=== PATIENT | male | born 1970 | race Caucasian/White ===

== ENCOUNTER 2020-02-04 14:54 | Outpatient (CLI) | payer MEDICARE, SELFPAY ==
[2020-02-04 16:03] LABS: Iron 90 ug/dL (49-181)
[2020-02-04 16:12] LABS: Percent Iron Saturation 21 % (20-50)
[2020-02-04 16:39] LABS: Ferritin 7.01 ng/mL (17.9-464)
== END 2020-02-04 14:55 | disposition home or self-care (01) ==
LOC: ANHLAB 15:02
PROVIDERS: PCP Internal Medicine; Visit Provider Internal Medicine
DX: E61.1 Iron deficiency (principal)
CPT/HCPCS: 36415; 82728; 83540; 83550

== ENCOUNTER 2020-06-01 10:59 | Outpatient (CLI) | payer MEDICARE, SELFPAY ==
[2020-06-01 11:53] LABS: Basophils Absolute Auto 0.1 K/mm3 (0.0-0.1); Basophils Percent Auto 0.8 % (0.2-1.2); Eosinophils Absolute Auto 0.1 K/mm3 (0-0.3); Hematocrit 46.5 % (42.0-52.0); Hemoglobin 15.2 g/dL (14.0-18.0); Immature Granulocyte Absolute 0.03 K/mm3 (0.00-0.031); Immature Granulocyte Percent A 0.5 % (0-0.5); Lymphocytes Absolute Auto 1.09 K/mm3 (0.9-3.2); Lymphocytes Percent Auto 16.4 % (18.3-44.2); Mean Corpuscular HGB Conc 32.7 g/dl (32-36); Mean Corpuscular Hemoglobin 28.3 pg (26-34); Mean Corpuscular Volume 86.4 fl (80-100); Mean Platelet Volume 11.7 fl (7.4-10.4); Monocytes Absolute Auto 0.5 K/mm3 (0.1-0.6); Neutrophils Absolute Auto 4.8 K/mm3 (1.3-6.7); Neutrophils Percent Auto 72.3 % (45.5-73.1); Platelet Count Result 149 k/mm3 (150-375); Red Blood Count 5.38 M/mm3 (4.6-6.20); Red Cell Distribution Width 14.7 % (11.5-14.5); White Blood Count 6.6 K/mm3 (4.5-10.0)
[2020-06-01 12:05] LABS: Anion Gap 8 mmol/L (8-16); Blood Urea Nitrogen 14 mg/dL (9-20); Calcium 9.8 mg/dL (8.4-10.2); Carbon Dioxide 28 mmol/L (22-30); Chloride 102 mmol/L (98-107); Cholesterol 127 mg/dL (0-200); Estimated Glomerular Filt Rate > 60; Glucose 94 mg/dL (75-110); HDL Direct 33 mg/dL; Potassium 4.4 mmol/L (3.4-5.0); Sodium 138 mmol/L (137-145); Triglycerides 86 mg/dL (<150)
[2020-06-01 12:16] LABS: LDL Cholesterol Direct 72 mg/dL
[2020-06-01 12:41] LABS: Hemoglobin A1C 5.4 % (<5.7)
[2020-06-01 13:18] LABS: Iron 165 ug/dL (49-181)
[2020-06-01 13:28] LABS: Percent Iron Saturation 45 % (20-50)
== END 2020-06-01 11:00 | disposition home or self-care (01) ==
PROVIDERS: PCP Internal Medicine; Visit Provider Internal Medicine
DX: Z79.899 Other long term (current) drug therapy (principal); E11.42 Type 2 diabetes mellitus with diabetic polyneuropathy; E78.2 Mixed hyperlipidemia; E61.1 Iron deficiency
CPT/HCPCS: 36415; 80048; 80061; 82728; 83036; 83540; 83550; 85025

== ENCOUNTER 2020-10-19 11:16 | Outpatient (CLI) | payer MEDICARE, SELFPAY ==
[2020-10-19 11:44] LABS: Basophils Percent Auto 0.7 % (0.2-1.2); Eosinophils Absolute Auto 0.3 K/mm3 (0-0.3); Eosinophils Percent Auto 4.3 % (0-4.4); Hematocrit 45.4 % (42.0-52.0); Hemoglobin 14.4 g/dL (14.0-18.0); Immature Granulocyte Absolute 0.01 K/mm3 (0.00-0.031); Immature Granulocyte Percent A 0.2 % (0-0.5); Lymphocytes Absolute Auto 1.19 K/mm3 (0.9-3.2); Lymphocytes Percent Auto 20.3 % (18.3-44.2); Mean Corpuscular HGB Conc 31.7 g/dl (32-36); Mean Corpuscular Hemoglobin 28.6 pg (26-34); Mean Corpuscular Volume 90.3 fl (80-100); Mean Platelet Volume 10.9 fl (7.4-10.4); Monocytes Absolute Auto 0.4 K/mm3 (0.1-0.6); Monocytes Percent Auto 7.4 % (2.6-8.5); Neutrophils Absolute Auto 3.9 K/mm3 (1.3-6.7); Neutrophils Percent Auto 67.1 % (45.5-73.1); Platelet Count Result 147 k/mm3 (150-375); Red Blood Count 5.03 M/mm3 (4.6-6.20); Red Cell Distribution Width 14.4 % (11.5-14.5); White Blood Count 5.9 K/mm3 (4.5-10.0)
[2020-10-19 11:51] LABS: Hemoglobin A1C 5.4 % (<5.7)
[2020-10-19 12:45] LABS: Free T4 Free Thyroxine 0.95 ng/mL (0.78-2.19)
[2020-10-19 13:26] LABS: Anion Gap 5 mmol/L (8-16); Blood Urea Nitrogen 20 mg/dL (9-20); CRP < 0.5 mg/dL (<1.0); Carbon Dioxide 34 mmol/L (22-30); Chloride 103 mmol/L (98-107); Cholesterol 113 mg/dL (0-200); Estimated Glomerular Filt Rate > 60; Glucose 90 mg/dL (75-110); HDL Direct 35 mg/dL; Potassium 4.6 mmol/L (3.4-5.0); Sodium 142 mmol/L (137-145); Triglycerides 73 mg/dL (<150)
[2020-10-19 13:35] LABS: LDL Cholesterol Direct 55 mg/dL
[2020-10-19 14:39] LABS: Folic Acid > 20.0 ng/mL (2.76->20); Vitamin B12 > 1000.0 pg/mL (239-931)
== END 2020-10-19 11:17 | disposition home or self-care (01) ==
LOC: ANHLAB 11:18
PROVIDERS: PCP Internal Medicine; Visit Provider Internal Medicine
DX: Z79.899 Other long term (current) drug therapy (principal); E53.8 Deficiency of other specified B group vitamins; E78.2 Mixed hyperlipidemia; E11.42 Type 2 diabetes mellitus with diabetic polyneuropathy
CPT/HCPCS: 36415; 80048; 80061; 82607; 82746; 83036; 84439; 84443; 85025; 86140

== ENCOUNTER 2020-11-18 12:43 | Outpatient (CLI) | payer MEDICARE, SELFPAY ==
--- NOTE | ~2020-11-18 | DEXA_ITS ---
Bone Density Report Name: Jamie Garcia Age: 50 Sex: Male Ethnicity: White Date of : 1970 Indication: height loss; Referring Provider: TABBY LEE Study: Bone densitometry was performed. Exam Date: November 18, 2020 Accession number: [id number] Bone Density: Region BMD T-score Z-score Classification AP Spine (L1, L2, L3) 1.374 2.8 3.1 Normal Femoral Neck (Left) 0.903 -0.2 0.6 Normal Total Hip (Left) 1.009 -0.2 0.2 Normal Total Hip Bilateral Avg 1.027 -0.1 0.3 Normal Femoral Neck (Right) 0.986 0.4 1.2 Normal Total Hip (Right) 1.044 0.1 0.4 Normal World Health Organization criteria for BMD impression classify patients as: Normal (T-score at or above -1.0), Osteopenia (T-score between -1.0 and -2.5), or Osteoporosis (T-score at or below -2.5). 10-year Fracture Risk: FRAX not reported because: All T-scores for Spine Total, Hip Total, Femoral Neck at or above -1.0 Clinical Information Provided by Patient: Has used the following medications: Vitamin D, Calcium Patient maximum height was 74 No regular weight bearing exercise Drinks caffeinated beverages Impression: The patient has normal bone mass. Discussion: BONE DENSITY IS ABOVE THE MINIMUM DESIRABLE LEVEL AT ALL SKELETAL SITES TESTED. This patient?s bone mineral density is above the minimum desirable level (T-score -1.0 or better) at all sites measured. The patient should follow a healthful lifestyle (good nutrition with adequate calcium and vitamin D, and appropriate weight-bearing exercise). Follow-Up: Consider repeating this study in 5 years or sooner if there is some new clinical indication. Reported by: [facility] on 11/18/2020 1:02:00 PM. Reviewed, dictated and finalized at location A. [facility]
== END 2020-11-18 12:44 | disposition home or self-care (01) ==
LOC: ANHIMG 12:44
PROVIDERS: PCP Internal Medicine; Visit Provider Internal Medicine
DX: Z98.84 Bariatric surgery status (principal); R29.890 Loss of height
CPT/HCPCS: 77080

== ENCOUNTER 2021-03-01 08:38 | Outpatient (CLI) | payer MEDICARE, SELFPAY ==
[2021-03-01 09:24] LABS: Anion Gap 10 mmol/L (8-16); Blood Urea Nitrogen 12 mg/dL (9-20); Calcium 10.1 mg/dL (8.4-10.2); Carbon Dioxide 30 mmol/L (22-30); Chloride 101 mmol/L (98-107); Cholesterol 118 mg/dL (0-200); Estimated Glomerular Filt Rate > 60; Glucose 118 mg/dL (75-110); HDL Direct 41 mg/dL; Potassium 3.9 mmol/L (3.4-5.0); Sodium 141 mmol/L (137-145); Triglycerides 62 mg/dL (<150)
[2021-03-01 09:35] LABS: LDL Cholesterol Direct 54 mg/dL
[2021-03-01 09:37] LABS: Hemoglobin A1C 5.3 % (<5.7)
[2021-03-01 09:57] LABS: Prostate Specific Antigen 0.4 ng/mL (< OR = 4.0)
[2021-03-05 11:19] LABS: Vitamin D 1,25 (OH)2 Total 37 pg/mL (18-72); Vitamin D2 1,25 (OH)2 <8 pg/mL; Vitamin D3 1,25 (OH)2 37 pg/mL
== END 2021-03-01 08:39 | disposition home or self-care (01) ==
PROVIDERS: PCP Internal Medicine; Visit Provider Internal Medicine
DX: E11.42 Type 2 diabetes mellitus with diabetic polyneuropathy (principal); E55.9 Vitamin D deficiency, unspecified; E78.2 Mixed hyperlipidemia; Z12.5 Encounter for screening for malignant neoplasm of prostate; Z79.899 Other long term (current) drug therapy
CPT/HCPCS: 36415; 80048; 80061; 82652; 83036; 84153; G0103

== ENCOUNTER 2021-07-03 14:26 | Outpatient (CLI) | payer MEDICARE, SELFPAY ==
[2021-07-03 15:15] LABS: Basophils Absolute Auto 0.1 K/mm3 (0.0-0.1); Basophils Percent Auto 0.8 % (0.2-1.2); Eosinophils Absolute Auto 0.1 K/mm3 (0-0.3); Eosinophils Percent Auto 1.3 % (0-4.4); Hematocrit 43.8 % (42.0-52.0); Hemoglobin 13.9 g/dL (14.0-18.0); Immature Granulocyte Absolute 0.02 K/mm3 (0.00-0.031); Immature Granulocyte Percent A 0.3 % (0-0.5); Lymphocytes Absolute Auto 1.29 K/mm3 (0.9-3.2); Lymphocytes Percent Auto 20.4 % (18.3-44.2); Mean Corpuscular HGB Conc 31.7 g/dl (32-36); Mean Corpuscular Hemoglobin 28.7 pg (26-34); Mean Corpuscular Volume 90.3 fl (80-100); Mean Platelet Volume 10.5 fl (7.4-10.4); Monocytes Absolute Auto 0.5 K/mm3 (0.1-0.6); Monocytes Percent Auto 7.8 % (2.6-8.5); Neutrophils Absolute Auto 4.4 K/mm3 (1.3-6.7); Neutrophils Percent Auto 69.4 % (45.5-73.1); Platelet Count Result 143 k/mm3 (150-375); Red Blood Count 4.85 M/mm3 (4.6-6.20); Red Cell Distribution Width 14.1 % (11.5-14.5); White Blood Count 6.3 K/mm3 (4.5-10.0)
[2021-07-03 15:27] LABS: Alanine Aminotransferase 40 U/L (4-50); Albumin Level 4.6 g/dL (3.5-5.1); Alkaline Phosphatase 38 U/L (38-126); Anion Gap 7 mmol/L (8-16); Aspartate Amino Transferase 39 U/L (17-59); Bilirubin,Total 0.6 mg/dL (0.2-1.3); Blood Urea Nitrogen 15 mg/dL (9-20); Carbon Dioxide 31 mmol/L (22-30); Chloride 104 mmol/L (98-107); Cholesterol 117 mg/dL (0-200); Estimated Glomerular Filt Rate > 60; Glucose 121 mg/dL (65-110); HDL Direct 38 mg/dL; Potassium 4.1 mmol/L (3.4-5.0); Sodium 142 mmol/L (137-145); Triglycerides 113 mg/dL (<150)
[2021-07-03 15:38] LABS: LDL Cholesterol Direct 62 mg/dL
[2021-07-03 16:08] LABS: Iron 104 ug/dL (49-181)
[2021-07-03 16:17] LABS: Percent Iron Saturation 34 % (20-50)
[2021-07-03 16:43] LABS: Folic Acid > 20.0 ng/mL (2.76->20); Vitamin B12 > 1000.0 pg/mL (239-931)
[2021-07-03 17:27] LABS: Hemoglobin A1C 5.5 % (<5.7)
[2021-07-06 16:11] LABS: Vitamin B6 34.2 ng/mL (2.1-21.7)
[2021-07-07 14:18] LABS: Vitamin D 1,25 (OH)2 Total 48 pg/mL (18-72); Vitamin D2 1,25 (OH)2 <8 pg/mL; Vitamin D3 1,25 (OH)2 48 pg/mL
[2021-07-08 10:04] LABS: Vitamin B1 16 nmol/L (8-30)
[2021-07-10 13:43] LABS: Vitamin B2 26.4 nmol/L (6.2-39.0)
== END 2021-07-03 14:27 | disposition home or self-care (01) ==
PROVIDERS: PCP Internal Medicine; Visit Provider Internal Medicine
DX: E61.1 Iron deficiency (principal); Z79.899 Other long term (current) drug therapy; E53.8 Deficiency of other specified B group vitamins; E11.42 Type 2 diabetes mellitus with diabetic polyneuropathy; E78.2 Mixed hyperlipidemia; E55.9 Vitamin D deficiency, unspecified
CPT/HCPCS: 36415; 80053; 80061; 82607; 82652; 82728; 82746; 83036; 83540; 83550; 84207; 84252; 84425; 85025

== ENCOUNTER 2021-08-24 11:41 | Outpatient (CLI) | payer MEDICARE, SELFPAY ==
--- NOTE | ~2021-08-24 | XR_ITS ---
EXAMINATION: XR lumbar spine min 4V DATE: 08/24/2021 12:07 INDICATION: Low back pain. TECHNIQUE: 5 views of lumbar spine were obtained. COMPARISON: None. FINDINGS: Bone alignment is normal. Vertebral body heights are normal. There are changes of anterior fusion procedures at L4-L5 and L5-S1 with interbody devices and healed interbody bone graft. There is mildly decreased disc height at L3-L4. There is moderate facet joint osteoarthritis in lower lumbar spine. IMPRESSION: 1. Mild lumbar spondylosis. 2. Anterior fusion procedure from L4 to S1. Reviewed, dictated and finalized at location A. [employer]
== END 2021-08-24 11:42 | disposition home or self-care (01) ==
PROVIDERS: PCP Internal Medicine; Visit Provider Internal Medicine
DX: M47.896 Other spondylosis, lumbar region (principal); Z98.1 Arthrodesis status
CPT/HCPCS: 72110

== ENCOUNTER 2021-08-31 11:34 | Outpatient (CLI) | payer MEDICARE, SELFPAY ==
[2021-08-31 12:14] LABS: Creatinine Urine 74.7 mg/dL; Total Protein Urine Random 13 mg/dL; Ur Ttl Prot Creatinine Ratio 0.17 mg/mg (0-0.20)
[2021-08-31 12:18] LABS: Albumin Level 4.9 g/dL (3.5-5.1); Anion Gap 7 mmol/L (8-16); Blood Urea Nitrogen 17 mg/dL (9-20); Calcium 10.5 mg/dL (8.4-10.2); Carbon Dioxide 33 mmol/L (22-30); Chloride 98 mmol/L (98-107); Estimated Glomerular Filt Rate > 60; Glucose 97 mg/dL (65-110); Phosphorus 4.2 mg/dL (2.5-4.5); Potassium 4.1 mmol/L (3.4-5.0); Sodium 138 mmol/L (137-145)
== END 2021-08-31 11:35 | disposition home or self-care (01) ==
LOC: ANHLAB 11:36
PROVIDERS: PCP Internal Medicine; Visit Provider Internal Medicine Nephrology
DX: E11.9 Type 2 diabetes mellitus without complications (principal)
CPT/HCPCS: 36415; 80069; 82570; 84156

== ENCOUNTER → 2021-09-12 09:28 | Outpatient (CLI) | payer MEDICARE, SELFPAY ==
--- NOTE | ~2021-09-12 | CT_ITS ---
EXAMINATION: CT lumbar spine wo con DATE: 09/12/2021 09:45 INDICATION: Lumbar radiculopathy. TECHNIQUE: Computed tomography (CT) of the lumbar spine was performed without intravenous contrast. A utomated exposure control and iterative reconstruction technique were employed. The dose-length produ ct was 505.61 mGy-cm. COMPARISON: Lumbar spine radiographs 08/24/2021 FINDINGS: Bone alignment is normal. Vertebral body heights are normal. There are changes of anterior fusion procedures at L4-L5 and L5-S1 with interbody devices and healed interbody bone graft. There is mildly decreased disc height at L3-L4. The following disc levels are specifically discussed: L1-L2: The disc is bulging. There is severe right and mild left facet joint osteoarthritis. There is no neural foraminal stenosis. There is mild central canal stenosis. L2-L3: The disc is bulging. There is severe bilateral facet joint osteoarthritis. There is mild bilat eral neural foraminal stenosis. There is mild central canal stenosis. L3-L4: The disc is bulging. There is severe bilateral facet joint osteoarthritis. There is moderate b ilateral neural foraminal stenosis. There is moderate central canal stenosis. L4-L5: There is severe bilateral facet joint osteoarthritis. There is mild bilateral neural foraminal stenosis. There is mild central canal stenosis. L5-S1: There is severe bilateral facet joint osteoarthritis. There is mild bilateral neural foraminal stenosis. There is mild central canal stenosis. IMPRESSION: 1. Moderate lumbar spondylosis. 2. Anterior fusion procedures at L4-L5 and L5-S1. Reviewed, dictated and finalized at location A. KER/STOCKER
== END ==
PROVIDERS: PCP Internal Medicine; Visit Provider Nurse Practitioner Adult Health
DX: M47.26 Other spondylosis with radiculopathy, lumbar region (principal); Z98.1 Arthrodesis status
CPT/HCPCS: 72131

== ENCOUNTER 2021-10-02 09:20 | Outpatient (CLI) | payer MEDICARE, SELFPAY ==
[2021-10-02 09:41] LABS: Eosinophils Absolute Auto 0.1 K/mm3 (0-0.3); Eosinophils Percent Auto 2.2 % (0-4.4); Hematocrit 47.8 % (42.0-52.0); Hemoglobin 15.2 g/dL (14.0-18.0); Immature Granulocyte Absolute 0.01 K/mm3 (0.00-0.031); Immature Granulocyte Percent A 0.2 % (0-0.5); Lymphocytes Absolute Auto 1.05 K/mm3 (0.9-3.2); Lymphocytes Percent Auto 25.9 % (18.3-44.2); Mean Corpuscular HGB Conc 31.8 g/dl (32-36); Mean Corpuscular Hemoglobin 28.8 pg (26-34); Mean Corpuscular Volume 90.5 fl (80-100); Monocytes Absolute Auto 0.4 K/mm3 (0.1-0.6); Monocytes Percent Auto 9.6 % (2.6-8.5); Neutrophils Absolute Auto 2.5 K/mm3 (1.3-6.7); Neutrophils Percent Auto 61.1 % (45.5-73.1); Platelet Count Result 152 k/mm3 (150-375); Red Blood Count 5.28 M/mm3 (4.6-6.20); White Blood Count 4.1 K/mm3 (4.5-10.0)
[2021-10-02 09:52] LABS: Anion Gap 11 mmol/L (8-16); Blood Urea Nitrogen 19 mg/dL (9-20); Calcium 10.5 mg/dL (8.4-10.2); Carbon Dioxide 31 mmol/L (22-30); Chloride 97 mmol/L (98-107); Estimated Glomerular Filt Rate > 60; Glucose 105 mg/dL (65-110); Potassium 4.5 mmol/L (3.4-5.0); Sodium 139 mmol/L (137-145)
== END 2021-10-02 09:21 | disposition home or self-care (01) ==
PROVIDERS: PCP Internal Medicine
DX: Z01.818 Encounter for other preprocedural examination (principal)
CPT/HCPCS: 36415; 80048; 85025

== ENCOUNTER 2021-11-27 12:01 | Outpatient (CLI) | payer MEDICARE, SELFPAY ==
[2021-11-27 12:33] LABS: Cholesterol 134 mg/dL (0-200); HDL Direct 40 mg/dL; Triglycerides 77 mg/dL (<150)
[2021-11-27 12:44] LABS: LDL Cholesterol Direct 70 mg/dL
[2021-11-27 13:45] LABS: Vitamin D 25 Hydroxy 51.4 ng/mL
== END 2021-11-27 12:02 | disposition home or self-care (01) ==
LOC: ANHLAB 12:02
PROVIDERS: PCP Internal Medicine; Visit Provider Internal Medicine
DX: E55.9 Vitamin D deficiency, unspecified (principal); E78.2 Mixed hyperlipidemia
CPT/HCPCS: 36415; 80061; 82306

== ENCOUNTER 2021-11-28 09:15 | Outpatient (CLI) | payer MEDICARE, SELFPAY ==
[2021-11-28 10:01] LABS: Basophils Percent Auto 0.8 % (0.2-1.2); Eosinophils Absolute Auto 0.1 K/mm3 (0-0.3); Eosinophils Percent Auto 3.1 % (0-4.4); Hematocrit 45.2 % (42.0-52.0); Hemoglobin 14.2 g/dL (14.0-18.0); Immature Granulocyte Absolute 0.01 K/mm3 (0.00-0.031); Immature Granulocyte Percent A 0.3 % (0-0.5); Immature Platelet Fraction Pct 6.8 % (0.9-11.2); Lymphocytes Absolute Auto 1.05 K/mm3 (0.9-3.2); Lymphocytes Percent Auto 26.7 % (18.3-44.2); Mean Corpuscular HGB Conc 31.4 g/dl (32-36); Mean Corpuscular Hemoglobin 28.2 pg (26-34); Mean Corpuscular Volume 89.7 fl (80-100); Mean Platelet Volume 11.1 fl (7.4-10.4); Monocytes Absolute Auto 0.5 K/mm3 (0.1-0.6); Monocytes Percent Auto 12.2 % (2.6-8.5); Neutrophils Absolute Auto 2.2 K/mm3 (1.3-6.7); Neutrophils Percent Auto 56.9 % (45.5-73.1); Platelet Count Result 137 k/mm3 (150-375); Red Blood Count 5.04 M/mm3 (4.6-6.20); Red Cell Distribution Width 13.9 % (11.5-14.5); White Blood Count 3.9 K/mm3 (4.5-10.0)
[2021-11-28 10:15] LABS: Alanine Aminotransferase 56 U/L (4-50); Albumin Level 4.5 g/dL (3.5-5.1); Alkaline Phosphatase 46 U/L (38-126); Anion Gap 7 mmol/L (8-16); Aspartate Amino Transferase 45 U/L (17-59); Bilirubin,Total 0.4 mg/dL (0.2-1.3); Blood Urea Nitrogen 14 mg/dL (9-20); Calcium 9.4 mg/dL (8.4-10.2); Carbon Dioxide 32 mmol/L (22-30); Chloride 103 mmol/L (98-107); Estimated Glomerular Filt Rate > 60; Glucose 96 mg/dL (65-110); Potassium 4.5 mmol/L (3.4-5.0); Sodium 142 mmol/L (137-145)
[2021-11-28 10:16] LABS: Hemoglobin A1C 5.3 % (<5.7)
[2021-11-28 10:57] LABS: Free T4 Free Thyroxine 1.15 ng/mL (0.78-2.19)
== END 2021-11-28 09:16 | disposition home or self-care (01) ==
PROVIDERS: PCP Internal Medicine; Visit Provider Internal Medicine
DX: E11.42 Type 2 diabetes mellitus with diabetic polyneuropathy (principal); Z79.899 Other long term (current) drug therapy
CPT/HCPCS: 36415; 80053; 83036; 84439; 84443; 85025; 85055

== ENCOUNTER 2022-01-22 09:15 | Outpatient (CLI) | payer MEDICARE, SELFPAY ==
[2022-01-22 10:17] LABS: Albumin Level 4.6 g/dL (3.5-5.1); Anion Gap 6 mmol/L (8-16); Blood Urea Nitrogen 11 mg/dL (9-20); Carbon Dioxide 32 mmol/L (22-30); Chloride 102 mmol/L (98-107); Estimated Glomerular Filt Rate > 60; Glucose 103 mg/dL (65-110); Phosphorus 3.4 mg/dL (2.5-4.5); Potassium 4.1 mmol/L (3.4-5.0); Sodium 140 mmol/L (137-145)
[2022-01-22 12:08] LABS: Creatinine Urine 12.4 mg/dL; Total Protein Urine Random 14 mg/dL; Ur Ttl Prot Creatinine Ratio 1.13 mg/mg (0-0.20)
== END 2022-01-22 09:16 | disposition home or self-care (01) ==
PROVIDERS: PCP Internal Medicine; Visit Provider Internal Medicine Nephrology
DX: E11.9 Type 2 diabetes mellitus without complications (principal)
CPT/HCPCS: 36415; 80069; 82570; 84156

== ENCOUNTER 2022-01-30 09:40 | Outpatient (CLI) | payer MEDICARE, SELFPAY ==
[2022-01-30 10:26] LABS: Appearance Urine Clear (Clear); Bilirubin Urine Negative (Negative); Color Urine Yellow (Yellow); Glucose Urine UA 2+ mg/dL (Negative); Ketones Urine Negative (Negative); Leukocyte Esterase Ur Negative LEU/UL (Negative); Nitrate Urine Negative (Negative); Protein Urine Negative (Negative); Specific Grav Ur <= 1.005 (1.001-1.035); Urobilinogen Urine 0.2 mg/dL (<2.0); pH Urine 6.5 (5.0-9.0)
[2022-01-30 10:30] LABS: Add Urine Microscopic? YES; Bacteria Urine Trace /hpf; Blood Urine Trace-Intact (Negative); Mucus Urine Rare /lpf; RBC Urine 0-2 /hpf (0-2)
[2022-01-30 10:42] LABS: Albumin Level 4.1 g/dL (3.5-5.1); Anion Gap 8 mmol/L (8-16); Blood Urea Nitrogen 14 mg/dL (9-20); Calcium 9.4 mg/dL (8.4-10.2); Carbon Dioxide 31 mmol/L (22-30); Chloride 101 mmol/L (98-107); Estimated Glomerular Filt Rate > 60; Glucose 92 mg/dL (65-110); Phosphorus 2.6 mg/dL (2.5-4.5); Sodium 140 mmol/L (137-145)
[2022-01-30 10:44] LABS: Complement C3 91 mg/dL (88-165)
[2022-01-30 12:14] LABS: Erythrocyte Sedimentation Rate 3 mm/hr (0-20)
[2022-02-02 03:30] LABS: Lambda Light Chain 19.3 mg/L (5.7-26.3)
[2022-02-03 21:12] LABS: Complement Total CH50 >60 U/mL (31-60)
== END 2022-01-30 09:41 | disposition home or self-care (01) ==
LOC: ANHLAB 09:51
PROVIDERS: PCP Internal Medicine; Visit Provider Internal Medicine Nephrology
DX: R80.1 Persistent proteinuria, unspecified (principal)
CPT/HCPCS: 36415; 80069; 81001; 83883; 85652; 86038; 86160; 86162; 86334

== ENCOUNTER 2022-02-02 07:47 | Outpatient (CLI) | payer MEDICARE, SELFPAY ==
[2022-02-07 13:58] LABS: Albumin 28 %; Measured Kappa Chains 1.03 mg/dL (<2.00); Measured Lambda Chains <1.00 mg/dL (<2.00); Pro/Creat Ratio 113 mg/g creat (<=114)
[2022-02-08 14:10] LABS: Protein,total, 24 Hr Ur 253 mg/24h
== END 2022-02-02 07:48 | disposition home or self-care (01) ==
LOC: ANHLAB 07:50
PROVIDERS: PCP Internal Medicine; Visit Provider Internal Medicine Nephrology
DX: R80.1 Persistent proteinuria, unspecified (principal)
CPT/HCPCS: 86335

== ENCOUNTER 2022-04-23 07:19 | Outpatient (CLI) | payer MEDICARE, SELFPAY ==
[2022-04-23 07:54] LABS: Eosinophils Absolute Auto 0.1 K/mm3 (0-0.3); Eosinophils Percent Auto 3.7 % (0-4.4); Hematocrit 45.2 % (42.0-52.0); Hemoglobin 14.1 g/dL (14.0-18.0); Immature Granulocyte Absolute 0.01 K/mm3 (0.00-0.031); Immature Granulocyte Percent A 0.3 % (0-0.5); Lymphocytes Absolute Auto 1.16 K/mm3 (0.9-3.2); Lymphocytes Percent Auto 30.4 % (18.3-44.2); Mean Corpuscular HGB Conc 31.2 g/dl (32-36); Mean Corpuscular Hemoglobin 28.2 pg (26-34); Mean Corpuscular Volume 90.4 fl (80-100); Mean Platelet Volume 11.5 fl (7.4-10.4); Monocytes Absolute Auto 0.5 K/mm3 (0.1-0.6); Monocytes Percent Auto 12.6 % (2.6-8.5); Platelet Count Result 144 k/mm3 (150-375); Red Cell Distribution Width 14.1 % (11.5-14.5); White Blood Count 3.8 K/mm3 (4.5-10.0)
[2022-04-23 10:23] LABS: Hemoglobin A1C 5.5 % (<5.7)
[2022-04-23 10:35] LABS: Alanine Aminotransferase 27 U/L (6-50); Albumin Level 4.4 g/dL (3.5-5.1); Alkaline Phosphatase 49 U/L (38-126); Anion Gap 8 mmol/L (8-16); Aspartate Amino Transferase 35 U/L (17-59); Bilirubin,Total 0.6 mg/dL (0.2-1.3); Blood Urea Nitrogen 14 mg/dL (9-20); Carbon Dioxide 33 mmol/L (22-30); Chloride 99 mmol/L (98-107); Cholesterol 132 mg/dL (0-200); Estimated Glomerular Filt Rate > 60; Glucose 96 mg/dL (65-110); HDL Direct 40 mg/dL; Potassium 4.2 mmol/L (3.4-5.0); Sodium 140 mmol/L (137-145); Triglycerides 64 mg/dL (<150)
[2022-04-23 10:46] LABS: LDL Cholesterol Direct 69 mg/dL
[2022-04-23 11:24] LABS: Prostate Specific Antigen 0.4 ng/mL (< OR = 4.0)
[2022-04-23 12:03] LABS: Folic Acid > 20.0 ng/mL (2.76->20); Vitamin B12 > 1000.0 pg/mL (239-931)
== END 2022-04-23 07:20 | disposition home or self-care (01) ==
PROVIDERS: PCP Internal Medicine; Visit Provider Internal Medicine
DX: Z12.5 Encounter for screening for malignant neoplasm of prostate (principal); E78.2 Mixed hyperlipidemia; E11.42 Type 2 diabetes mellitus with diabetic polyneuropathy; E53.8 Deficiency of other specified B group vitamins; Z79.899 Other long term (current) drug therapy
CPT/HCPCS: 36415; 80053; 80061; 82607; 82746; 83036; 84153; 85025; G0103

== ENCOUNTER 2022-04-25 08:10 | Outpatient (CLI) | payer MEDICARE, SELFPAY ==
--- NOTE | ~2022-04-25 | XR_ITS ---
XR shoulder LT min 2V DATE: 04/25/2022 08:25 INDICATION: Left shoulder pain, adhesive capsulitis TECHNIQUE: 4 views COMPARISON: None FINDINGS: Left AICD/pacemaker device with Mild levoscoliosis of the upper thoracic spine. Superior subluxation at the left glenohumeral joint suggests rotator cuff tear and/or atrophy. Mild g lenohumeral osteoarthritis including spurring of the humeral head. Mild widening but otherwise normal alignment at the acromion clavicular joint; normal coracoclavicular distance IMPRESSION: Glenohumeral osteoarthritis Suggestion of rotator cuff tear or atrophy Mild widening of the left acromioclavicular joint; normal coracoclavicular distance Reviewed, dictated and finalized at location B. IMPRESSION: Glenohumeral osteoarthritis Suggestion of rotator cuff tear or atrophy Mild widening of the left acromioclavicular joint; normal coracoclavicular dist ance
== END 2022-04-25 08:11 | disposition home or self-care (01) ==
PROVIDERS: PCP Internal Medicine; Visit Provider Internal Medicine
DX: M75.00 Adhesive capsulitis of unspecified shoulder (principal); M25.512 Pain in left shoulder; M19.012 Primary osteoarthritis, left shoulder
CPT/HCPCS: 73030

== ENCOUNTER 2022-07-20 10:54 | Outpatient (CLI) | payer MEDICARE, SELFPAY ==
[2022-07-20 11:48] LABS: Albumin Level 4.5 g/dL (3.5-5.1); Anion Gap 11 mmol/L (8-16); Blood Urea Nitrogen 11 mg/dL (9-20); Calcium 9.5 mg/dL (8.4-10.2); Carbon Dioxide 32 mmol/L (22-30); Chloride 101 mmol/L (98-107); Estimated Glomerular Filt Rate > 60; Glucose 85 mg/dL (65-110); Phosphorus 3.6 mg/dL (2.5-4.5); Potassium 3.8 mmol/L (3.4-5.0); Sodium 144 mmol/L (137-145)
[2022-07-20 11:50] LABS: Creatinine Urine 19.1 mg/dL; Total Protein Urine Random 13 mg/dL; Ur Ttl Prot Creatinine Ratio 0.68 mg/mg (0-0.20)
== END 2022-07-20 10:55 | disposition home or self-care (01) ==
LOC: ANHLAB 10:56
PROVIDERS: PCP Internal Medicine; Visit Provider Internal Medicine Nephrology
DX: R80.1 Persistent proteinuria, unspecified (principal)
CPT/HCPCS: 36415; 80069; 82570; 84156

== ENCOUNTER → 2022-07-27 12:45 | Outpatient (CLI) | payer MEDICARE, SELFPAY ==
--- NOTE | ~2022-07-27 | US_ITS ---
US renal BI 07/27/2022 13:03 Procedure: Realtime transabdominal ultrasound of the kidneys and bladder. Indication: Hypertension. Proteinuria. Diabetes. Comparison: No prior studies for comparison. Findings: Renal echotexture is normal bilaterally without hydronephrosis, contour deforming mass or r enal calculus. The right kidney measures 11.5 cm and left kidney measures 10.8 cm. Bladder within no rmal limits. Impression: 1: Unremarkable renal ultrasound. No stones, masses or hydronephrosis. Reviewed, dictated and finalized at location A. Impression: 1: Unremarkable renal ultrasound. No stones, masses or hydronephrosis.
== END ==
PROVIDERS: PCP Internal Medicine; Visit Provider Internal Medicine Nephrology
DX: R80.1 Persistent proteinuria, unspecified (principal); E78.01 Familial hypercholesterolemia; I10 Essential (primary) hypertension
CPT/HCPCS: 76775

== ENCOUNTER 2022-09-04 10:44 | Outpatient (CLI) | payer MEDICARE, SELFPAY ==
[2022-09-04 11:57] LABS: Alanine Aminotransferase 42 U/L (6-50); Albumin Level 4.7 g/dL (3.5-5.1); Alkaline Phosphatase 56 U/L (38-126); Anion Gap 8 mmol/L (8-16); Aspartate Amino Transferase 39 U/L (17-59); Bilirubin,Total 0.6 mg/dL (0.2-1.3); Blood Urea Nitrogen 16 mg/dL (9-20); Calcium 9.4 mg/dL (8.4-10.2); Carbon Dioxide 32 mmol/L (22-30); Chloride 103 mmol/L (98-107); Cholesterol 136 mg/dL (0-200); Estimated Glomerular Filt Rate > 60; Glucose 97 mg/dL (65-110); HDL Direct 36 mg/dL; Potassium 4.2 mmol/L (3.4-5.0); Sodium 143 mmol/L (137-145); Triglycerides 104 mg/dL (<150)
[2022-09-04 11:59] LABS: Hemoglobin A1C 5.7 % (<5.7)
[2022-09-04 12:09] LABS: LDL Cholesterol Direct 72 mg/dL
[2022-09-04 12:20] LABS: Vitamin D 25 Hydroxy 40.4 ng/mL
[2022-09-04 13:03] LABS: Folic Acid > 20.0 ng/mL (2.76->20); Vitamin B12 > 1000.0 pg/mL (239-931)
== END 2022-09-04 10:45 | disposition home or self-care (01) ==
PROVIDERS: PCP Internal Medicine; Visit Provider Internal Medicine
DX: E11.42 Type 2 diabetes mellitus with diabetic polyneuropathy (principal); E53.8 Deficiency of other specified B group vitamins; Z79.899 Other long term (current) drug therapy; E78.2 Mixed hyperlipidemia; Z13.29 Encounter for screening for other suspected endocrine disorder; E55.9 Vitamin D deficiency, unspecified
CPT/HCPCS: 36415; 80053; 80061; 82306; 82607; 82746; 83036; 84443

== ENCOUNTER 2022-11-15 11:16 | Outpatient (CLI) | payer MEDICARE, SELFPAY ==
[2022-11-15 12:02] LABS: Hemoglobin 13.8 g/dL (14.0-18.0)
[2022-11-15 12:14] LABS: Anion Gap 6 mmol/L (8-16); Blood Urea Nitrogen 15 mg/dL (9-20); Calcium 9.9 mg/dL (8.4-10.2); Carbon Dioxide 31 mmol/L (22-30); Chloride 101 mmol/L (98-107); Estimated Glomerular Filt Rate > 60; Glucose 87 mg/dL (65-110); Potassium 4.2 mmol/L (3.4-5.0); Sodium 138 mmol/L (137-145)
== END 2022-11-15 11:17 | disposition home or self-care (01) ==
LOC: ANHSURGERY 11:21
PROVIDERS: Anesthesiology; PCP Internal Medicine; Visit Provider Podiatrist Foot & Ankle Surgery
DX: D64.9 Anemia, unspecified (principal); E11.9 Type 2 diabetes mellitus without complications
CPT/HCPCS: 36415; 80048; 85014; 85018

== ENCOUNTER 2022-11-23 00:44 | Day surgery (SDC) | payer MEDICARE, SELFPAY ==
[2022-11-14 09:22] VITALS: BMI 25.5
--- NOTE | 2022-11-14 09:33 | PC.NURSE ---
Report to the Outpatient Waiting Room, entrance under the green pavilion located off [facility], at time 8:00 on date 11/23/22. Planned Procedure Time: 10:00. Time changes happen often and if your time is changed the preop area will call you the afternoon before. - You and your visitor will be asked to self-screen and do not enter if you have any COVID symptoms. - Only one visitor is requested with a max of two and NO children visitors are allowed at this time. - The patient visitor may be requested to leave or wait in car when not with patient due to distancing restrictions. - A mask is optional within the hospital at this time. Patients may have clear liquids (water, carbonated beverages, clear teas, apple juice) until 3 hours prior to surgery (7:00) with a maximum of 20 ounces. - No food from midnight until time of surgery Take the following medications with a SIP of water the morning of surgery: GABAPENTIN, METOPROLOL, TRINTELLIX DO NOT STOP ANY OF YOUR OTHER PRESCRIPTION MEDICATIONS PRIOR TO SURGERY EXCEPT THE FOLLOWING Medications to discontinue per physician: VITAMINS/SUPPLEMENTS Date to take last dose: 11/19/22 STOP ELIQUIS PER INSTRUCTIONS FROM DR. WHITE (5 DAYS PRE-OP PER PT) Please no make-up, nail persian, hairspray, perfume, deodorant, or body powder the day of surgery. No jewelry (including any body piercings) or valuables the day of surgery, leave them at home. Please take a shower or bath the night before, or the morning of, surgery with an antibacterial soap. Wear comfortable, loose fitting clothing. - Jewelry must be removed prior to entering the operating room. Rings and piercings that are not removed may be cut off. - The hospital will not accept responsibility for valuables. - Please leave all valuables, including medications, at home the day of surgery. If you are going home after surgery, a licensed shuttle driver must drive you home. - NO public transportation without another adult if you receive anesthesia. - We recommend that an adult stay with you for 24 hours following discharge. - We also recommend that you do not drive, make important decision, drink alcoholic beverages, or take any drugs that were not prescribed by your health care provider for at least 24 hours after your discharge time. Follow any additional instructions given to you from your surgeon. If you or anyone in your household have experienced Covid symptoms in the past week, please notify your surgeon or the nurse liaison at the phone number below for possible testing. Telephone instructions given to BUTCH SARMIENTO and asked if any additional questions and then verbalized understanding. Patient advised to call surgeon office or pre surgery nurse liaison [phone] if any additional questions.
--- NOTE | ~2022-11-23 | XR_ITS ---
EXAMINATION: XR surgery orthopedic DATE: 11/23/2022 11:22 INDICATION: Left foot hammertoe. TECHNIQUE: A single intraoperative fluoroscopic view of left foot was obtained. I was not present. Fl uoroscopy exposure time was 5 seconds. COMPARISON: None. FINDINGS: There are changes of arthrodesis procedure of fourth proximal interphalangeal joint in prog ress. There are changes of resection of head of fifth proximal phalanx. IMPRESSION: 1. Surgical changes of left foot in progress. Reviewed, dictated and finalized at location A. [employer]
--- NOTE | 2022-11-23 07:24 | WPDHPUPDATE1 ---
History and Physical Update Update Date/Time: 11/23/22 07:24 History and Physical has been reviewed, including an updated exam of the patient. There are NO changes in the patient's condition. Risks, benefits, and alternatives have been discussed and questions answered. Patient agrees to proceed with procedure.
[2022-11-23] MEDS: LACTATED RINGERS 1,000 ML 30 ML IV CONT (08:10)
[2022-11-23 08:17] VITALS: BP 111/93; PULSE 76; RESP 16; TEMP 36.4; O2SAT 100
--- NOTE | 2022-11-23 10:36 | WPDANESEPPF ---
Anes - Initial Pre Proc Eval Procedure: Operation Date: 11/23/22 10:00 Proposed Procedures p Hammer Toe Repair Fourth and Fifth Digits Left Foot - Sean Archer JR, MD Date/Time: 11/23/22 10:36 Surgeon: Sean Archer JR, MD Pre Op Diagnosis: hammer toe 4th and fifth digits left foot Patient Data Age: 52 Gender: M Height: 1.88 m Weight: 89.1 kg Last Vital Signs Temp 36.4 C 11/23/22 08:17 Pulse 76 11/23/22 08:17 Resp 16 11/23/22 08:17 BP 111/93 H 11/23/22 08:17 Pulse Ox 100 11/23/22 08:17 O2 Del Method Room Air 11/23/22 08:17 Allergies Allergy/AdvReac Type Severity Reaction Status Date / Time menthol [From Icy Hot] Allergy Severe chemical Verified 11/14/22 09:19 burn methyl salicylate Allergy Severe chemical Verified 11/14/22 09:19 [From Icy Hot] burn NSAIDS (Non-Steroidal Allergy Other Verified 11/14/22 09:19 Anti-Inflamma Home Medications Medication Instructions Recorded Confirmed Type multivitamin 1 tablet PO DAILY 01/07/20 11/14/22 History vortioxetine 20 mg tablet 20 mg PO DAILY #30 tabs 01/07/20 11/14/22 Rx (Trintellix) acetaminophen 650 mg 650 mg PO Q12H 02/04/20 11/14/22 History tablet,extended release (Tylenol Arthritis Pain) ascorbate calcium (vitamin C) 500 500 mg PO DAILY 04/20/20 11/14/22 History mg tablet lactobacillus combination no.9 4 4,000 mmu cells PO DAILY 04/20/20 11/14/22 History billion cell capsule (Adult 50 Plus Probiotic) atorvastatin 20 mg tablet 20 mg PO DAILY #90 tabs 11/23/20 11/14/22 Rx apixaban 5 mg tablet (Eliquis) See Rx Instructions .Route 07/13/21 11/14/22 Rx .COMPLEX #180 tabs ferrous sulfate 325 mg (65 mg 325 mg PO DAILY #90 tabs 07/13/21 11/14/22 Rx iron) tablet metoprolol succinate 50 mg 50 mg PO DAILY #90 tabs 07/13/21 11/14/22 Rx tablet,extended release 24 hr ibuprofen 200 mg tablet 800 mg PO Q4H PRN Pain 08/24/21 11/14/22 History cyanocobalamin (vitamin B-12) See Rx Instructions .Route 03/12/22 11/14/22 Rx 1,000 mcg/mL injection solution .COMPLEX #3 mL sacubitril 24 mg-valsartan 26 mg 1 tablet PO BID #180 tabs 05/01/22 11/14/22 Rx tablet (Entresto) montelukast 10 mg tablet See Rx Instructions .Route 06/28/22 11/14/22 Rx .COMPLEX #60 tabs pantoprazole 40 mg tablet,delayed See Rx Instructions .Route 07/30/22 11/14/22 Rx release .COMPLEX #60 tabs mirtazapine 15 mg tablet (Remeron) 7.5 mg PO DAILY sleep 09/07/22 11/14/22 History empagliflozin 5 mg-metformin ER See Rx Instructions .Route 10/08/22 11/14/22 Rx 1,000 mg tablet,extended release .COMPLEX #90 tabs 24 hr (Synjardy XR) gabapentin 300 mg capsule See Rx Instructions .Route 10/22/22 11/14/22 Rx .COMPLEX #300 caps Patient hx anesthesia problems: none Family hx anesthesia problems: none Results Review: All pre-operative results and documents have been reviewed as part of the pre-operative evaluation. [facility] Past Medical History Medical History A-fib Anxiety Bipolar 1 disorder Bipolar disorder BMI 20.0-20.9, adult BMI 21.0-21.9, adult BMI 22.0-22.9, adult BMI 24.0-24.9, adult Calcium deficiency Chronic low back pain CKD (chronic kidney disease) Colon cancer screening Defibrillator discharge DJD (degenerative joint disease), multiple sites DM type 2 (diabetes mellitus, type 2) Encounter for routine adult health examination with abnormal findings Encounter for routine adult health examination without abnormal findings Encounter to establish care Follow up GERD (gastroesophageal reflux disease) Hx of atrial fibrillation without current medication Hx of congestive heart failure Hyperlipidemia Insomnia Iron deficiency Left shoulder pain Localized skin mass, lump, or swelling Lumbar radiculopathy Non-ischemic cardiomyopathy On shelter drug therapy Onychomycosis Peripheral neuropathy Presence of combination internal cardiac defibrillator (IC
[2022-11-23] MEDS: ceFAZolin 2 GM/D5W 50 ML 2 GM/50 ML BAG IVPB (10:39)
[2022-11-23] MEDS: LIDOCAINE HCL 2% PF INJ 5 ML VIAL INFILTRATE (10:50)
[2022-11-23] MEDS: BUPivacaine HCL 0.5% 10 ML AMP INFILTRATE (10:51)
[2022-11-23 11:37] VITALS: BP 112/75; PULSE 66; RESP 14; O2SAT 96
--- NOTE | 2022-11-23 11:40 | W.PM.PROC2 ---
Procedure Note - Detailed Date of Procedure 11/23/22 Pre-op Diagnosis Hammer toes fourth and fifth digits left foot Post-op Diagnosis Same Procedure Performed 1. 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 A pneumatic ankle tourniquet was placed about the patient's ipsilateral ankle. Following general LMA, a local anesthetic block was obtained about the left foot and ankle utilizing 20 cc of 2% Lidocaine plain and 0.5% Marcaine plain. The foot was then scrubbed, prepped, and draped in the usual aseptic manner. An Esmarch bandage was then used to exsanguinate the patient's foot and the pneumatic ankle tourniquet was then inflated. Surgery began in the following manner: Attention was directed to the fourth digit left foot. A transverse tenotomy was created dorsal to the proximal interphalangeal joint, next the head of the proximal phalanx was resected with an oscillating saw blade, the Arthrex hammertoe planer was used to denude and prepare the joint for the hammertoe implant from the base of the middle phalanx and distal proximal phalanx. Next, I implanted the Arthrex Dynanite hammertoe implant in a cannulated fashion using standard technique. Fluoroscopy was used to make sure that the digit and implant were appropriately positioned. The same procedure was duplicated for the 5th digit I utilized a 2.0mm Arthrex trim it pin to stabilize the 5th digit. The wound site was then flushed with copious amounts of sterile saline. Next, the periosteum and capsular structures/tendon overlying the digits were reapproximated with 4-0 Vicryl. Next, subcutaneous structures were reapproximated and coapted utilizing 4-0 Vicryl. The skin was reapproximated with 4-0 Monocryl in running subcuticular suture fashion technique. Upon completion of the procedure, the incisions were dressed with Steri-Strips, Adaptic, 4x4s, Kerlix, and Coban. The pneumatic ankle tourniquet was then deflated and a prompt hyperemic response was noted to all digits of the foot. A CAM boot was applied. The patient did very well with the procedure and the anesthesia. He was transferred to the recovery room with vital signs stable and vascular status intact to all toes of the affected foot. Following a period of postoperative monitoring, the patient will be discharged home on the following written and oral postoperative instructions: 1. Keep the dressing clean, dry, and intact. 2. The patient to be strictly nonweightbearing with a knee scooter or crutches. 3. The patient should ice and elevate the foot when at rest. 4. The patient should contact Dr. Archer for all postop care and if any problems should arise. Implants Arthrex Dynanite Hammertoe implant/ Arthrex trim it pin 2.0mm Estimated Blood Loss 1 Packing No Pathology None sent Complications No immediate complications Condition Stable Disposition Same day
[2022-11-23 11:43] LABS: Glucose Point of Care 105 mg/dl (65-105)
[2022-11-23 12:00] VITALS: BP 108/73; PULSE 65; RESP 14
[2022-11-23 12:30] VITALS: BP 110/76; PULSE 71; RESP 14
== END 2022-11-23 12:49 | disposition home or self-care (01) ==
PROVIDERS: PCP Internal Medicine; Visit Provider Podiatrist Foot & Ankle Surgery
PROC: (CPT 28285; principal; 2022-11-23 10:00)
DX: M20.42 Other hammer toe(s) (acquired), left foot (principal); I48.91 Unspecified atrial fibrillation; F41.9 Anxiety disorder, unspecified; F31.9 Bipolar disorder, unspecified; E11.22 Type 2 diabetes mellitus with diabetic chronic kidney disease; N18.9 Chronic kidney disease, unspecified; K21.9 Gastro-esophageal reflux disease without esophagitis; E78.5 Hyperlipidemia, unspecified; I42.8 Other cardiomyopathies; E61.1 Iron deficiency; E11.42 Type 2 diabetes mellitus with diabetic polyneuropathy; Z95.810 Presence of automatic (implantable) cardiac defibrillator; F43.10 Post-traumatic stress disorder, unspecified; E55.9 Vitamin D deficiency, unspecified; E53.8 Deficiency of other specified B group vitamins; Z98.84 Bariatric surgery status; Z98.1 Arthrodesis status; Z87.891 Personal history of nicotine dependence; Z79.01 Long term (current) use of anticoagulants; Z79.84 Long term (current) use of oral hypoglycemic drugs
CPT/HCPCS: 28285 ×2; 82948; 99199; C1713; J0690; J2250; J2704; J3010; J7120

== ENCOUNTER 2023-01-28 10:46 | Outpatient (CLI) | payer MEDICARE, SELFPAY ==
[2023-01-28 11:09] LABS: Basophils Absolute Auto 0.1 K/mm3 (0.0-0.1); Basophils Percent Auto 0.9 % (0.2-1.2); Eosinophils Absolute Auto 0.2 K/mm3 (0-0.3); Eosinophils Percent Auto 3.5 % (0-4.4); Hematocrit 43.1 % (42.0-52.0); Hemoglobin 13.5 g/dL (14.0-18.0); Immature Granulocyte Absolute 0.01 K/mm3 (0.00-0.031); Immature Granulocyte Percent A 0.2 % (0-0.5); Immature Platelet Fraction Pct 7.3 % (0.9-11.2); Lymphocytes Percent Auto 16.8 % (18.3-44.2); Mean Corpuscular HGB Conc 31.3 g/dl (32-36); Mean Corpuscular Hemoglobin 28.8 pg (26-34); Mean Corpuscular Volume 92.1 fl (80-100); Mean Platelet Volume 11.6 fl (7.4-10.4); Monocytes Absolute Auto 0.5 K/mm3 (0.1-0.6); Neutrophils Absolute Auto 4.7 K/mm3 (1.3-6.7); Neutrophils Percent Auto 71.6 % (45.5-73.1); Platelet Count Result 153 k/mm3 (150-375); Red Blood Count 4.68 M/mm3 (4.6-6.20); Red Cell Distribution Width 14.6 % (11.5-14.5); White Blood Count 6.6 K/mm3 (4.5-10.0)
[2023-01-28 11:15] LABS: Creatinine Urine 53.1 mg/dL; Total Protein Urine Random 12 mg/dL; Ur Ttl Prot Creatinine Ratio 0.23 mg/mg (0-0.20)
[2023-01-28 11:29] LABS: Alanine Aminotransferase 32 U/L (6-50); Albumin Level 4.6 g/dL (3.5-5.1); Albumin Level 4.7 g/dL (3.5-5.1); Alkaline Phosphatase 43 U/L (38-126); Anion Gap 5 mmol/L (8-16); Anion Gap 8 mmol/L (8-16); Aspartate Amino Transferase 33 U/L (17-59); Bilirubin,Total 0.5 mg/dL (0.2-1.3); Blood Urea Nitrogen 15 mg/dL (9-20); Calcium 9.2 mg/dL (8.4-10.2); Calcium 9.5 mg/dL (8.4-10.2); Carbon Dioxide 31 mmol/L (22-30); Carbon Dioxide 33 mmol/L (22-30); Chloride 103 mmol/L (98-107); Cholesterol 131 mg/dL (0-200); Estimated Glomerular Filt Rate > 60; Glucose 88 mg/dL (65-110); Glucose 89 mg/dL (65-110); HDL Direct 32 mg/dL; Phosphorus 3.3 mg/dL (2.5-4.5); Potassium 4.1 mmol/L (3.4-5.0); Sodium 141 mmol/L (137-145); Sodium 142 mmol/L (137-145); Triglycerides 125 mg/dL (<150)
[2023-01-28 11:40] LABS: LDL Cholesterol Direct 73 mg/dL
[2023-01-28 11:48] LABS: Vitamin D 25 Hydroxy 36.4 ng/mL
[2023-01-28 11:59] LABS: Thyroid Stimulating Hormone 0.557 uIU/mL (0.465-4.680)
[2023-01-28 12:17] LABS: Hemoglobin A1C 5.5 % (<5.7)
[2023-01-28 12:40] LABS: Folic Acid 19.8 ng/mL (2.76->20)
== END 2023-01-28 10:47 | disposition home or self-care (01) ==
PROVIDERS: PCP Internal Medicine; Referring Provider Internal Medicine Nephrology; Visit Provider Internal Medicine
DX: E61.1 Iron deficiency (principal); Z79.899 Other long term (current) drug therapy; Z13.29 Encounter for screening for other suspected endocrine disorder; E53.8 Deficiency of other specified B group vitamins; E55.9 Vitamin D deficiency, unspecified; E11.42 Type 2 diabetes mellitus with diabetic polyneuropathy; E78.2 Mixed hyperlipidemia; N18.31 Chronic kidney disease, stage 3a
CPT/HCPCS: 36415; 80053; 80061; 80069; 82306; 82570; 82607; 82746; 83036; 84156; 84439; 84443; 85025; 85055

== ENCOUNTER 2023-06-27 11:43 | Outpatient (CLI) | payer MEDICARE, SELFPAY ==
[2023-06-27 12:30] LABS: Basophils Absolute Auto 0.1 K/mm3 (0.0-0.1); Basophils Percent Auto 0.9 % (0.2-1.2); Eosinophils Absolute Auto 0.1 K/mm3 (0-0.3); Eosinophils Percent Auto 1.1 % (0-4.4); Hematocrit 47.1 % (42.0-52.0); Hemoglobin 14.7 g/dL (14.0-18.0); Immature Granulocyte Absolute 0.03 K/mm3 (0.00-0.031); Immature Granulocyte Percent A 0.5 % (0-0.5); Lymphocytes Absolute Auto 0.89 K/mm3 (0.9-3.2); Lymphocytes Percent Auto 16.2 % (18.3-44.2); Mean Corpuscular HGB Conc 31.2 g/dl (32-36); Mean Corpuscular Volume 89.7 fl (80-100); Mean Platelet Volume 11.5 fl (7.4-10.4); Monocytes Absolute Auto 0.4 K/mm3 (0.1-0.6); Monocytes Percent Auto 7.3 % (2.6-8.5); Neutrophils Absolute Auto 4.1 K/mm3 (1.3-6.7); Platelet Count Result 142 k/mm3 (150-375); Red Blood Count 5.25 M/mm3 (4.6-6.20); Red Cell Distribution Width 13.9 % (11.5-14.5); White Blood Count 5.5 K/mm3 (4.5-10.0)
[2023-06-27 12:42] LABS: Alanine Aminotransferase 39 U/L (6-50); Alkaline Phosphatase 56 U/L (38-126); Anion Gap 8 mmol/L (8-16); Aspartate Amino Transferase 42 U/L (17-59); Blood Urea Nitrogen 12 mg/dL (9-20); Calcium 10.3 mg/dL (8.4-10.2); Carbon Dioxide 31 mmol/L (22-30); Chloride 100 mmol/L (98-107); Cholesterol 133 mg/dL (0-200); Estimated Glomerular Filt Rate > 60; Glucose 91 mg/dL (65-110); HDL Direct 36 mg/dL; Sodium 139 mmol/L (137-145); Triglycerides 77 mg/dL (<150)
[2023-06-27 12:53] LABS: LDL Cholesterol Direct 79 mg/dL
[2023-06-27 13:03] LABS: Hemoglobin A1C 5.5 % (<5.7)
[2023-06-27 13:10] LABS: Prostate Specific Antigen 0.5 ng/mL (< OR = 4.0)
[2023-06-27 13:35] LABS: Vitamin D 25 Hydroxy 62.4 ng/mL
[2023-06-27 13:55] LABS: Folic Acid > 20.0 ng/mL (2.76->20); Vitamin B12 > 1000.0 pg/mL (239-931)
== END 2023-06-27 11:44 | disposition home or self-care (01) ==
LOC: ANHLAB 11:45
PROVIDERS: PCP Internal Medicine; Visit Provider Internal Medicine
DX: E11.9 Type 2 diabetes mellitus without complications (principal); E78.5 Hyperlipidemia, unspecified; Z79.899 Other long term (current) drug therapy; E55.9 Vitamin D deficiency, unspecified; Z12.5 Encounter for screening for malignant neoplasm of prostate; E53.8 Deficiency of other specified B group vitamins
CPT/HCPCS: 36415; 80053; 80061; 82306; 82607; 82746; 83036; 83735; 84153; 85025; G0103

== ENCOUNTER → 2023-07-29 08:15 | Outpatient (CLI) | payer MEDICARE, SELFPAY ==
--- NOTE | ~2023-07-29 | CT_ITS ---
Noncontrast CT scan of the thoracic spine CLINICAL HISTORY: Failed back surgical syndrome TECHNIQUE: Axial noncontrast imaging of the thoracic spine was performed. Sagittal and coronal reform atted images were constructed. Dose reduction technique was used on this scan by utilizing automated exposure control and iterative reconstruction technique. The dose-length product (DLP) was 748.79 mGy -cm. FINDINGS: There is no fracture or subluxation of the thoracic spine. Vertebral bodies maintain normal alignment. Intervertebral disc spaces are relatively well-preserved throughout, aside from advanced degenerative disc narrowing at C7-T1. No disc bulge or herniation evident in the thoracic spine. No definite spinal canal stenosis or cord compression identified. Paravertebral soft tissues are unremarkable. Impression: Unremarkable thoracic spine. Advanced degenerative disc narrowing at C7-T1 level. Reviewed, dictated and finalized at [facility]. 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 Advanced degenerative disc narrowing at C7-T1 level.
--- NOTE | ~2023-07-29 | CT_ITS ---
Noncontrast CT scan of the lumbar spine CLINICAL HISTORY: Failed back cervical syndrome TECHNIQUE: Axial noncontrast imaging of the lumbar spine was performed. Sagittal and coronal reformat [place] images were constructed. Dose reduction technique was used on this scan by utilizing automated ex posure control and iterative reconstruction technique. The dose-length product (DLP) was 748.79 mGy-c m. FINDINGS: There is anterior and interbody fusion from L4 to L5, and from L5 to S1, with mature fusion across the L4-L5 and L5-S1 disc spaces. Probable minimal grade 1 retrolisthesis of L3 over L4. No ot her fracture identified. Remaining disc spaces are relatively well-preserved. At L1-L2, there is no significant disc bulge or herniation. There is mild facet arthropathy. No centr al canal stenosis or definite neural foraminal narrowing. At L2-L3, there is minimal disc bulge and moderate facet arthropathy. Probable minimal central canal stenosis. Neural foramina are probably preserved. At L3-L4, there is disc bulge and facet arthropathy, resulting in probable severe central canal steno sis/thecal sac compression. There is probable moderate to severe bilateral neural foraminal narrowing . At L4-L5, there is osteophyte at the disc level space with facet arthropathy, with probable moderate central canal stenosis. There is mild to moderate bilateral neural foraminal narrowing. At L5-S1, there is no definite disc bulge or herniation. No definite canal stenosis. There is mild to moderate bilateral neural foraminal narrowing. Paravertebral soft tissues are unremarkable. Impression: Anterior and interbody mature fusion from L4 through S1, as detailed above. Moderate degenerative spondylosis, as detailed above. Findings are probably worst at L3-L4. Reviewed, dictated and finalized at 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 Moderate degenerative spondylosis, as detailed above. Findings are probably wor st at L3-L4.
== END ==
PROVIDERS: PCP Internal Medicine; Visit Provider Nurse Practitioner Family
DX: M47.896 Other spondylosis, lumbar region (principal); M50.33 Other cervical disc degeneration, cervicothoracic region; Z98.1 Arthrodesis status
CPT/HCPCS: 72128; 72131

== ENCOUNTER 2023-10-21 10:05 | Outpatient (CLI) | payer MEDICARE, SELFPAY ==
--- NOTE | 2023-10-21 10:39 | ECG_ITS ---
Measurements Intervals [place] Rate: 84 P: 56 MO: 153 QRS: 131 QRSD: 140 T: 55 QT: 396 QTc: 470 Interpretive Statements ATRIAL SENSE- ELECTRONIC VENTRICULAR PACEMAKER BASELINE ARTIFACT- I, II, III, AVR, AVL, AVF NO FURTHER INTERPRETATION IS POSSIBLE ATYPICAL ECG NO PREVIOUS ECG AVAILABLE FOR COMPARISON Electronically Signed On 10-21-2023 11:57:26 CHIEF HUMAN RESOURCES OFFICER by Sabino Cortes D.O.
[2023-10-21 10:43] LABS: Appearance Urine Clear (Clear); Bacteria Urine None Seen /hpf; Bilirubin Urine Negative (Negative); Blood Urine Negative (Negative); Color Urine Yellow (Yellow); Glucose Urine UA 3+ mg/dL (Negative); Ketones Urine Negative (Negative); Leukocyte Esterase Ur Negative LEU/UL (Negative); Nitrate Urine Negative (Negative); Non Pathogenic Casts 0-2; Protein Urine Trace mg/dL (Negative); RBC Urine 0-2 /hpf (0-2); Specific Grav Ur 1.025 (1.001-1.035); Squamous Epithelial Cell Urine None seen /hpf (Few); Urobilinogen Urine 0.2 mg/dL (<2.0); WBC Urine 0-5 /hpf; pH Urine 5.5 (5.0-9.0)
[2023-10-21 10:46] LABS: Basophils Absolute Auto 0.1 K/mm3 (0.0-0.1); Eosinophils Absolute Auto 0.2 K/mm3 (0-0.3); Eosinophils Percent Auto 3.9 % (0-4.4); Hematocrit 45.1 % (42.0-52.0); Hemoglobin 14.2 g/dL (14.0-18.0); Immature Granulocyte Absolute 0.01 K/mm3 (0.00-0.031); Immature Granulocyte Percent A 0.2 % (0-0.5); Lymphocytes Absolute Auto 1.13 K/mm3 (0.9-3.2); Lymphocytes Percent Auto 23.4 % (18.3-44.2); Mean Corpuscular HGB Conc 31.5 g/dl (32-36); Mean Corpuscular Hemoglobin 27.9 pg (26-34); Mean Corpuscular Volume 88.6 fl (80-100); Monocytes Absolute Auto 0.4 K/mm3 (0.1-0.6); Monocytes Percent Auto 7.7 % (2.6-8.5); Neutrophils Absolute Auto 3.1 K/mm3 (1.3-6.7); Neutrophils Percent Auto 63.8 % (45.5-73.1); Platelet Count Result 127 k/mm3 (150-375); Red Blood Count 5.09 M/mm3 (4.6-6.20); Red Cell Distribution Width 14.4 % (11.5-14.5); White Blood Count 4.8 K/mm3 (4.5-10.0)
[2023-10-21 11:02] LABS: Alanine Aminotransferase 30 U/L (6-50); Albumin Level 4.3 g/dL (3.5-5.1); Alkaline Phosphatase 48 U/L (38-126); Anion Gap 7 mmol/L (8-16); Aspartate Amino Transferase 34 U/L (17-59); Bilirubin,Total 0.7 mg/dL (0.2-1.3); Blood Urea Nitrogen 12 mg/dL (9-20); CRP < 0.5 mg/dL (<1.0); Calcium 9.9 mg/dL (8.4-10.2); Carbon Dioxide 31 mmol/L (22-30); Chloride 105 mmol/L (98-107); Estimated Glomerular Filt Rate > 60; Glucose 92 mg/dL (65-110); Sodium 143 mmol/L (137-145)
[2023-10-21 11:02] LABS: Add Urine Microscopic? YES
[2023-10-21 11:37] LABS: Erythrocyte Sedimentation Rate 11 mm/hr (0-20)
== END 2023-10-21 10:06 | disposition home or self-care (01) ==
PROVIDERS: PCP Internal Medicine; Visit Provider Nurse Practitioner Family
DX: Z01.818 Encounter for other preprocedural examination (principal)
CPT/HCPCS: 36415; 80053; 81001; 85025; 85652; 86140; 93005

== ENCOUNTER 2023-11-18 08:54 | Outpatient (CLI) | payer MEDICARE, SELFPAY ==
[2023-11-18 09:51] LABS: Alanine Aminotransferase 34 U/L (6-50); Albumin Level 4.7 g/dL (3.5-5.1); Alkaline Phosphatase 43 U/L (38-126); Anion Gap 5 mmol/L (8-16); Aspartate Amino Transferase 32 U/L (17-59); Bilirubin,Total 0.7 mg/dL (0.2-1.3); Blood Urea Nitrogen 14 mg/dL (9-20); Calcium 10.2 mg/dL (8.4-10.2); Carbon Dioxide 30 mmol/L (22-30); Chloride 105 mmol/L (98-107); Cholesterol 135 mg/dL (0-200); Estimated Glomerular Filt Rate > 60; Glucose 96 mg/dL (65-110); HDL Direct 40 mg/dL; Potassium 3.9 mmol/L (3.4-5.0); Sodium 140 mmol/L (137-145); Triglycerides 79 mg/dL (<150)
[2023-11-18 10:02] LABS: LDL Cholesterol Direct 78 mg/dL
[2023-11-18 10:20] LABS: Thyroid Stimulating Hormone 0.542 uIU/mL (0.465-4.680)
[2023-11-18 10:36] LABS: Iron 113 ug/dL (49-181)
[2023-11-18 10:47] LABS: Percent Iron Saturation 36 % (20-50)
[2023-11-18 10:54] LABS: Free T4 Free Thyroxine 1.05 ng/mL (0.78-2.19)
[2023-11-18 10:55] LABS: Hemoglobin A1C 5.6 % (<5.7)
[2023-11-18 11:06] LABS: Creatinine Urine 17.3 mg/dL
[2023-11-18 12:12] LABS: Microalbumin Urine Random < 6.0 mg/L (0-16.7)
== END 2023-11-18 08:55 | disposition home or self-care (01) ==
PROVIDERS: PCP Internal Medicine; Visit Provider Internal Medicine
DX: E78.5 Hyperlipidemia, unspecified (principal); E11.9 Type 2 diabetes mellitus without complications; E61.1 Iron deficiency; Z79.899 Other long term (current) drug therapy; Z13.29 Encounter for screening for other suspected endocrine disorder
CPT/HCPCS: 36415; 80053; 80061; 82043; 82728; 83036; 83540; 83550; 84439; 84443

== ENCOUNTER 2024-02-26 07:06 | Outpatient (CLI) | payer MEDICARE, SELFPAY ==
[2024-02-26 08:17] LABS: Albumin Level 4.6 g/dL (3.5-5.1); Anion Gap 5 mmol/L (4-12); Blood Urea Nitrogen 12 mg/dL (9-20); Carbon Dioxide 33 mmol/L (22-30); Chloride 102 mmol/L (98-107); Estimated Glomerular Filt Rate > 60; Glucose 94 mg/dL (65-110); Phosphorus 3.2 mg/dL (2.5-4.5); Potassium 4.1 mmol/L (3.4-5.0); Sodium 140 mmol/L (137-145)
[2024-02-26 08:27] LABS: Creatinine Urine 55.7 mg/dL; Total Protein Urine Random 11 mg/dL
== END 2024-02-26 07:07 | disposition home or self-care (01) ==
PROVIDERS: PCP Internal Medicine; Visit Provider Internal Medicine Nephrology
DX: R80.1 Persistent proteinuria, unspecified (principal)
CPT/HCPCS: 36415; 80069; 82570; 84156

== ENCOUNTER 2024-03-25 12:28 | Outpatient (CLI) | payer MEDICARE, SELFPAY ==
[2024-03-25 13:00] LABS: Alanine Aminotransferase 24 U/L (6-50); Albumin Level 4.4 g/dL (3.5-5.1); Alkaline Phosphatase 38 U/L (38-126); Anion Gap 4 mmol/L (4-12); Aspartate Amino Transferase 28 U/L (17-59); Bilirubin,Total 0.6 mg/dL (0.2-1.3); Blood Urea Nitrogen 15 mg/dL (9-20); Calcium 9.7 mg/dL (8.4-10.2); Carbon Dioxide 33 mmol/L (22-30); Chloride 104 mmol/L (98-107); Cholesterol 122 mg/dL (0-200); Estimated Glomerular Filt Rate > 60; Glucose 148 mg/dL (65-110); HDL Direct 39 mg/dL; Potassium 3.9 mmol/L (3.4-5.0); Sodium 141 mmol/L (137-145); Triglycerides 84 mg/dL (<150)
[2024-03-25 13:10] LABS: LDL Cholesterol Direct 74 mg/dL
[2024-03-25 13:33] LABS: Hemoglobin A1C 5.4 % (<5.7)
== END 2024-03-25 12:29 | disposition home or self-care (01) ==
LOC: ANHLAB 12:31
PROVIDERS: PCP Internal Medicine; Visit Provider Internal Medicine
DX: Z79.899 Other long term (current) drug therapy (principal); E78.5 Hyperlipidemia, unspecified; N18.9 Chronic kidney disease, unspecified; E11.42 Type 2 diabetes mellitus with diabetic polyneuropathy
CPT/HCPCS: 36415; 80053; 80061; 83036

== ENCOUNTER 2024-08-07 09:40 | Outpatient (CLI) | payer MEDICARE, SELFPAY ==
[2024-08-07 10:23] LABS: Add Urine Microscopic? NO; Appearance Urine Clear (Clear); Bilirubin Urine Negative (Negative); Blood Urine Negative (Negative); Color Urine Yellow (Yellow); Glucose Urine UA 2+ mg/dL (Negative); Ketones Urine Negative (Negative); Leukocyte Esterase Ur Negative LEU/UL (Negative); Nitrate Urine Negative (Negative); Protein Urine Negative (Negative); Specific Grav Ur 1.006 (1.001-1.035); Urobilinogen Urine 0.2 mg/dL (<2.0)
[2024-08-07 10:34] LABS: Alanine Aminotransferase 37 U/L (6-50); Albumin Level 4.5 g/dL (3.5-5.1); Alkaline Phosphatase 47 U/L (38-126); Anion Gap 9 mmol/L (4-12); Aspartate Amino Transferase 36 U/L (17-59); Bilirubin,Total 0.8 mg/dL (0.2-1.3); Blood Urea Nitrogen 16 mg/dL (9-20); Calcium 9.8 mg/dL (8.4-10.2); Carbon Dioxide 31 mmol/L (22-30); Chloride 102 mmol/L (98-107); Cholesterol 156 mg/dL (0-200); Estimated Glomerular Filt Rate > 60; Glucose 78 mg/dL (65-110); HDL Direct 43 mg/dL; Potassium 3.8 mmol/L (3.4-5.0); Sodium 142 mmol/L (137-145); Triglycerides 84 mg/dL (<150)
[2024-08-07 10:44] LABS: LDL Cholesterol Direct 87 mg/dL
[2024-08-07 10:45] LABS: Creatinine Urine 15.4 mg/dL
[2024-08-07 10:49] LABS: MALB Creatinine Ratio 46.8 mg/g (0-30); Microalbumin Urine Random 7.2 mg/L (0-16.7)
[2024-08-07 10:55] LABS: Free T4 Free Thyroxine 1.07 ng/mL (0.78-2.19); Vitamin D 25 Hydroxy 61.9 ng/mL
[2024-08-07 11:05] LABS: Prostate Specific Antigen 0.5 ng/mL (< OR = 4.0); Thyroid Stimulating Hormone 0.866 uIU/mL (0.465-4.680)
[2024-08-07 11:56] LABS: Hemoglobin A1C 5.9 % (<5.7)
== END 2024-08-07 09:41 | disposition home or self-care (01) ==
LOC: ANHLAB 09:42
PROVIDERS: PCP Internal Medicine; Visit Provider Internal Medicine
DX: N18.9 Chronic kidney disease, unspecified (principal); Z79.899 Other long term (current) drug therapy; E78.5 Hyperlipidemia, unspecified; Z13.29 Encounter for screening for other suspected endocrine disorder; E55.9 Vitamin D deficiency, unspecified; Z12.5 Encounter for screening for malignant neoplasm of prostate; E11.42 Type 2 diabetes mellitus with diabetic polyneuropathy
CPT/HCPCS: 36415; 80053; 80061; 81003; 82043; 82306; 83036; 84153; 84439; 84443; G0103

== ENCOUNTER 2024-12-15 10:18 | Outpatient (CLI) | payer MEDICARE, SELFPAY ==
[2024-12-15 10:48] LABS: Basophils Percent Auto 0.6 % (0.2-1.2); Eosinophils Absolute Auto 0.1 K/mm3 (0-0.3); Eosinophils Percent Auto 1.6 % (0-4.4); Hemoglobin 14.7 g/dL (14.0-18.0); Immature Granulocyte Absolute 0.01 K/mm3 (0.00-0.031); Immature Granulocyte Percent A 0.2 % (0-0.5); Lymphocytes Absolute Auto 0.65 K/mm3 (0.9-3.2); Mean Corpuscular Hemoglobin 28.2 pg (26-34); Mean Corpuscular Volume 88.3 fl (80-100); Mean Platelet Volume 11.6 fl (7.4-10.4); Monocytes Absolute Auto 0.5 K/mm3 (0.1-0.6); Monocytes Percent Auto 9.4 % (2.6-8.5); Neutrophils Absolute Auto 3.8 K/mm3 (1.3-6.7); Neutrophils Percent Auto 75.2 % (45.5-73.1); Platelet Count Result 149 k/mm3 (150-375); Red Blood Count 5.21 M/mm3 (4.6-6.20); Red Cell Distribution Width 13.6 % (11.5-14.5)
[2024-12-15 11:08] LABS: Alanine Aminotransferase 35 U/L (6-50); Albumin Level 4.8 g/dL (3.5-5.1); Alkaline Phosphatase 54 U/L (38-126); Anion Gap 11 mmol/L (4-12); Aspartate Amino Transferase 37 U/L (17-59); Bilirubin,Total 0.9 mg/dL (0.2-1.3); Blood Urea Nitrogen 8 mg/dL (9-20); Calcium 10.2 mg/dL (8.4-10.2); Carbon Dioxide 29 mmol/L (22-30); Chloride 101 mmol/L (98-107); Cholesterol 136 mg/dL (0-200); Estimated Glomerular Filt Rate > 60; Glucose 89 mg/dL (65-110); HDL Direct 42 mg/dL; Potassium 4.2 mmol/L (3.4-5.0); Sodium 141 mmol/L (137-145); Triglycerides 78 mg/dL (<150)
[2024-12-15 11:19] LABS: LDL Cholesterol Direct 59 mg/dL
--- OUTSIDE RECORDS SUMMARY | 2024-12-15 12:05 | XMS_ITS | Encounter Summary ---
Author Organization [facility] Address [address] [place] [address] Care Team Providers Care Pricing/Signage Team Member Name Role Phone Ahmet Mejía MD Primary Care Provider Vince Hermosillo DO Unavailable Vince Hermosillo DO Primary Care Provider Vince Hermosillo DO Primary Care Provider Pcp, Unknown Primary Care Provider Unavailsimona e Ragini Ayala MD Primary Care Provider Wenceslao Kohli DO Primary Care Provider [phone] Jerman Hamilton MD Primary Care Provider Encounter Details Date Type Department Care Team (Late st Contact Info) Description 12/15/2010 [facility] Outpatient Visit [facility] Medical [facility] - Family Medicine [address] [place] [id number] Ahmet Mejía MD [address] [place] [address] Social History Tobacco Use Types Packs/Day Years Used Date Smoking Tobacco: Never Smokeless Tobacco: Never Alcohol Use Standard Drinks/Week Comments No 0 (1 standard drink = 0.6 oz pur e alcohol) rarely Sex and Gender Information Value Date Recorded Sex Assigned at Not on file Gender Identity Not on file Sexual Orientation Not on file documented as of this encounter Plan of Treatment Not on file documented as of this encounter Visit Diagnoses Not on filedocumented in this encounter Care Teams Pricing/Signage Team Member Relationship Specialty Start Date End Date Ahmet Mejía MD [address] [place] [address] PCP - General 07/15/10 04/16/11 Vince Hermosillo, DO [address] [place] [address] PCP - General 01/08/12 03/10/13 Vince Hermosillo, DO [address] [place] [address] PCP - General Family Medicine 03/11/13 11/16/13 Pcp, Unknown [place] [address] PCP - General 11/17/13 Ragini Ayala MD [place] [address] PCP - General Internal Medicine 04/13/14 02/19/18 Wenceslao Kohli, [place] [address] PCP - General Emergency Medicine 02/20/18 03/17/20 Jerman Hamilton MD [address] [address] PCP - General Internal Medicine 03/18/20 Vince Hermosillo, DO [address] [place] [address] Family Medicine 09/27/11 02/19/18 documented as of this encounter
--- OUTSIDE RECORDS SUMMARY | 2024-12-15 12:05 | XMS_ITS | Continuity of Care Document ---
Author Organization [facility] Address [address] [place] [address] Phone Care Team Providers Care Manager Policy Name Role Phone Nubia Branden Unavailable Unavailable [...] [facility], [address], [place], [place], [facility], tel:[phone] [facility] No Information Nubia Otero. [address] [place] [address], [place] [address], [place], [place], [address] [place] [address]. tel:[phone] [facility], [address], [place], [place], [facility], tel:[phone] [facility] Seizure / Convulsions Nubia Otero. [address] [place] [address], [address] tel:[phone] [facility], [address] [place] [address], [place], [place], [facility], tel:[phone] [facility] No Information Nubia Otero. [address] [place] [address], [address], [facility], . tel:[phone] [facility], [address], [place], [place], [facility], tel:[phone] [facility] No Information Nubia Otero. [address] [place] [address], [place] [address], . tel:[phone] [facility], [address], [place], [place], [facility], tel:[phone] [facility] No Information Nubia Otero. [facility], [address] tel:[phone] Family History Family Member Type Diagnosis Age At Onset No Information Payers Payer name Insurance type Covered democrat ID Authoriza tion(s) [place] - [place] [id number] Medicaid - [place] [id number] Social History Type Description Quantity Date Captured Comments Sex Male Smoking Status No Information Chief Complaint And Reason For Visit No Information History Of Present Illness Encounter Date Complaint History Of Prese nt Illness No Information Instructions Date Instruction Additional Infor mation No Information Assessments Type Assessment Date No Information
--- OUTSIDE RECORDS SUMMARY | 2024-12-15 12:05 | XMS_ITS | Clinical Summary ---
Author Organization [facility] Address [address] [place] [address] Care Team Providers Care Spiritual Minister Name Role Phone Jerman Hamilton MD Primary Care Provider Source Comments [facility],non-owned Affiliates and Associated Physician Practices is amultiple site organization consisting of ambulatory clinics and hospital sitesin [place], [place], [place] and [place]. This disclosure is being madepursuant to the Care Everywhere program and may not contain all information available regarding this patient. Last updated 18.[facility] Allergies Active Allergy Reactions Criticality Noted Date Comments Icy Hot Medicated 12/03/2011 Nsaids 06/19/2010 Pt has had a gastric bypass in 2008. Prone to bleeding ulcers no NSAIDS allowed. Medications * Be aware that medications may not be up to date on this document. Alwaysverify current medications with the patient. Medication Sig Dispensed Refills Start Date End Date Status cyanocobalamin, vitamin B-12, injection Inject 1,000 mcg into muscle every 30 days. 1 mL 11 09/05/2010 Active multivitamin daily (THERAGRAN) tablet Take 1 Tab by mouth daily with food. Active metoprolol succinate XL 24hr (TOPROL XL) 25 MG tablet Take 50 mg by mouth once daily Active acetaminophen (TYLENOL) 500 MG tablet Take 500 mg by mouth every 12 hours Maximum allowable Acetaminophen amount = 4 Grams (4000 mg) / 24 hours. Active Probiotic Product (PROBIOTIC DAILY PO) Take 1 capsule by mouth once daily Active apixaban (ELIQUIS) 5 MG tablet Take 5 mg by mouth 2 times daily Active Ascorbic Acid (VITAMIN C CR) 500 MG Take by mouth once daily Active imipramine (TOFRANIL) 50 MG tablet Take 50 mg by mouth at bedtime Active montelukast (SINGULAIR) 10 MG tablet Take 10 mg by mouth at bedtime Active atorvastatin (LIPITOR) 20 MG tablet Take 20 mg by mouth at bedtime Active pantoprazole EC (PROTONIX) 40 MG tablet Take 40 mg by mouth once daily Active vortioxetine (TRINTELLIX) 10 MG tablet Take 10 mg by mouth once daily Active empaglifozin-metFOR MIN (SYNJARDY) 5-1000 MG tablet Take 1 tablet by mouth once daily Active ferrous sulfate EC (FERROUS SULFATE) 324 (65 Fe) MG tablet Take 324 mg by mouth 2 times daily Active buPROPion SR 12hr (WELLBUTRIN SR) 150 MG tablet Take 150 mg by mouth once daily Active cariprazine (VRAYLAR) 3 MG capsule Take 3 mg by mouth once daily Active Active Problems Patient Care Coordination No te Formatting of this note migh t be different from the original. EP--Dr. Hal Wong Stock Checkerer - Dr. Thuan Hart Problem Noted Date Diagnosed Date LBBB (left bundle branch block) 08/03/2015 Paroxysmal atrial fibrillation 08/03/2015 Essential hypertension, benign 08/03/2015 Pure hypercholesterolemia 08/03/2015 Non morbid obesity due to excess calories 2014 Dietary counseling 08/03/2015 Bi-V Defibrillator 06/22/2012 Overview (03/07/2016): 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 Hal Wong RA: MEDT [id number] SN: [id number] (Implanted 07/19/2010) RV: MEDT 6947 SN: [id number] (Implanted 07/19/2010) LV: MEDT [id number] SN: [id number] (Implanted 02/06/2012) Ventricular tachycardia 01/10/2012 Overview (01/10/2012): with appropriate shock from ICD on 01/01/12 Chest pain 10/26/2010 Bipolar I disorder, most rec ent episode (or current) depressed, severe, without mention of psychotic behavior 10/20/2010 Overview (06/23/2017): IMO Update 06/23/2017 Bipolar I disorder, most rec ent episode (or current) depressed, severe, without mention of psychotic behavior 10/07/2010 Overview (06/23/2017): IMO Update 06/23/2017 Dilated cardiomyopathy 10/07/2010 Dizziness and giddiness 06/16/2010 Fall 06/16/2010 Esophageal stricture 06/16/2010 GERD (gastroesophageal reflux disease) 0 S/P gastric bypass 06/16/2010 OA (osteoarthritis) 06/16/2010 Syncope and collapse 06/16/2010 Resolved Problems Problem Noted Date Diagnosed Date Resolved Date Implantable cardioverter-def ibrillator discharge 01/10/2012 05/20/2015 Overview (02/14/2015): Bipolar 2 disorder 06/16/2010 1 Immunizations Name Administration Dates Next Due INFLUENZA VACCINE, QUADR. (F LUZONE; FLULAVAL; FLUARIX; AFLURIA QUADRIVALENT; 6MO+), 0.5 ML (IIV4) 07/06/2020 PNEUMOCOCCAL PPSV23 06/17/2010 Family History Medical History Relation Name Comments Alcohol abuse Brother 2 Alcohol abuse Father Heart Failure Father Hypercholesterolemia Father Hypertension Father Arthritis - Rheumatoid Maternal Grandmother Cancer Maternal Grandmother Depression Mother Heart Failure Paternal Aunt Heart Failure Paternal Grandfather Hypercholesterolemia Paternal Grandfather Hypertension Paternal Grandfather Diabetes Paternal Grandmother Heart Failure Paternal Grandmother Heart Failure Paternal Uncle Relation Name Status Comments Brother 1 Alive chol Brother 2 Father Alive bypass x5, chol , htn Maternal Grandmother Mother Alive depression, cho l Paternal Aunt Paternal Grandfather Paternal Grandmother Paternal Uncle Social History Tobacco Use Types Packs/Day Years Used Date Smoking Tobacco: Former Cigarettes Q uit: 01/21/2013 Smokeless Tobacco: Former Quit: 01/22/2012 Tobacco Cessation:Ready to Q uit: Yes; Counseling Given: Yes Comments:d/c tobacco use 01/21/13 after smoking for 2 years Alcohol Use Standard Drinks/Week Comments No 0 (1 standard drink = 0.6 oz pur e alcohol) He no longer consumes alcohol. Sex and Gender Information Value Date Recorded Sex Assigned at Not on file Gender Identity Not on file Sexual Orientation Not on file Last Filed Vital Signs Vital Sign Reading Time Taken Comments Blood Pressure 114/68 08/16/2020 2:05 PM INNER TUBE TUBER MACHINE OPERATOR Pulse 70 08/16/2020 2:05 PM INNER TUBE TUBER MACHINE OPERATOR Temperature 36.2 C (97.1 F) 03/07/2016 8:29 AM CDT Respiratory Rate 12 08/16/2020 2:05 PM INNER TUBE TUBER MACHINE OPERATOR Oxygen Saturation 97% 03/07/2016 12:00 PM CDT Inhaled Oxygen Concentration - - Weight 73 kg (161 lb) 08/16/2020 2:05 PM INNER TUBE TUBER MACHINE OPERATOR Height 185.4 cm (6' 1 ) 08/16/2020 2:05 PM INNER TUBE TUBER MACHINE OPERATOR Body Mass Index 21.24 08/16/2020 2:05 PM INNER TUBE TUBER MACHINE OPERATOR Plan of Treatment Health Maintenance Due Date Last Done Comments COLON MONITORING 1970 COLONOSCOPY - COLON CA SCREENING 1970 CT COLONOGRAPHY - COLON CA SCREENING 1970 FIT - COLON CA SCREENING 1970 FLEX SIG - COLON CA SCREENING 1970 HEPATITIS C SCREENING 03/05/1988 DTAP/TDAP/TD VACCINES (1 - Tdap) 1989 HEPATITIS B VACCINE (1 of 3 - 19+ 3-dose series) 1989 PNEUMOCOCCAL VACCINE 50+ (2 of 2 - PCV) 2020 06/17/2010 ZOSTER VACCINE (1 of 2) 2020 COLOGUARD (AGES 45-75) - COL ON CA SCREENING 06/15/2023 06/15/2020 Colorectal Cancer Screening 06/15/2023 COVID-19 VACCINE (1 - 2023-2 5 season) 2024 INFLUENZA VACCINE (#1) 2024 07/06/2020 MEDICARE AWV CALENDAR YEAR 2024 PNEUMOCOCCAL VACCINE Aged Out 06/17/2010 No long er eligible based on patient's age to complete this topic HIV SCREENING Completed 07/22/2010 HIB VACCINE Aged Out No longer eligi ble based on patient's age to complete this topic HPV VACCINE Aged Out No longer eligi ble based on patient's age to complete this topic MENINGOCOCCAL (Group B) VACC INE SHARED DECISION-MAKING Aged Out No longer eligibl e based on patient's age to complete this topic MENINGOCOCCAL GROUPS A/C/Y/W VACCINE Aged Out No longer eligible b ased on patient's age to complete this topic Medical Devices Implanted Type Area Horseradish Maker Device Identifier Shelf Expiration Date Model / Serial / Lot Alloquent Corticocanc S 8.0mm Implanted:Qty: 1 on 03/11/2013 by Roberto Jaime MD at [facility] [place]: Spine Cervical [employer] 04/24/2015 [id number] / / [id number] Alloquent Corticocanc S 8.0mm Implanted:Qty: 1 on 03/11/2013 by Roberto Jaime MD at [facility] [place]: Spine Cervical [employer] 05/29/2015 [id number] / / [id number] 37mm Luxe Acp Implanted:Qty: 1 on 03/11/2013 by Roberto Jaime MD at [facility] [place] Spine Cervical [employer] [id number] / / Description:Implanted from s terile tray. 14mm Fixed Screws Implanted:Qty: 6 on 03/11/2013 by Roberto Jaime MD at [facility] [place] Spine Cervical [employer] [id number] / / Description:Implanted from s terile tray. Procedures Procedure Name Priority Date/Time Associated Diagnosis Comments HIV-1 HIV-2 ANTIBODY RAPID AM Draw 07/22/2010 3:35 AM CDT from Last 3 Months or Most Recently Relevant to Health Maintenance Results * HIV-1 HIV-2 ANTIBODY RAPID (07/22/2010 3:35 AM CDT) HIV-1/HIV-2 Rapid Antibody Negative [facility] BLOOD SPECIMEN / Unknown 07/22/2010 3:35 AM CDT 07/22/2010 4:20 AM CDT Shane Reyna MD LAB - CHEMISTRY ORD ERABLES [facility] [address] [id number] from Last 3 Months or Most Recently Relevant to Health Maintenance Advance Directives Documents on File Type Date Recorded Patient Advertising Dispatch Clerks Supervisor Expl anation Adv Directive/Living Will/POA 01/22/2011 1:10 PM Adv Directive/Living Will/POA 10/30/2010 9:14 AM * FULL RESUSCITATION (Latest Code Status on File) Date Activated Date Inactivated Comments 03/11/2013 12:47 PM 03/12/2013 2:02 PM * LIMITED RESUSCITATION Date Activated Date Inactivated Comments 04/21/2012 1:24 PM 04/25/2012 2:49 PM Question Answer Comments : NO CHEST COMPRESSION : NO INVASIVE MECHANICAL VENTILATI ON : NO INTUBATION : NO DEFIBRILLATION * FULL RESUSCITATION Date Activated Date Inactivated Comments 04/21/2012 11:40 AM 04/21/2012 1:24 PM * FULL RESUSCITATION Date Activated Date Inactivated Comments 02/06/2012 4:05 PM 02/08/2012 7:24 AM * FULL RESUSCITATION Date Activated Date Inactivated Comments 02/05/2012 7:28 PM 02/06/2012 4:05 PM Care Teams Spiritual Minister Relationship Specialty Start Date End Date Jerman Hamilton MD [address] [facility] [address] [place] [address] PCP - General Internal Medicine 03/18/20
--- OUTSIDE RECORDS SUMMARY | 2024-12-15 12:05 | XMS_ITS ---
Author Organization [facility] [employer] Address [address] [facility] [address] [place] [address] Care Team Providers Care Rn Clinical Resource Name Role Phone Jerman Hamilton MD Primary Care Provider Unavailab Ramona Jean Baptiste Unavailable [phone] Yaneli Valerio Unavailable [phone] Allergies Allergen (clinical drug ingredient) Drug/Non Drug Allergy documented on EMR Reaction Allergy Type Onset Date Status menthol Icy Hot Unknown Drug Allergy 12/27/2023 Active REASON FOR VISIT follow up Medications Medication SIG (Take, Route, Frequency, Duration) Notes Start Date End Date Status Montelukast Sodium 10 MG Oral 12/27/2023 Active Mirtazapine 7.5 MG 1 tablet at bedtime Oral Once a day for 90 days 12/27/2023 Active True Metrix Blood Glucose Test In Vitro 12/27/2023 Active Trintellix 20 MG 1 tablet Oral Once a day for 90 days 12/27/2023 Active Vraylar 4.5 mg 1 tablet Oral daily for 30 days 12/27/2023 Active TRUEPLUS LANCETS 33 gauge MISCELLANEOUS *Reorder from [employer]Comment for eRx and Interaction Alerts* 12/27/2023 Active Pantoprazole Sodium 40 MG Oral 12/27/2023 Active Metoprolol Succinate ER 50 MG Oral 12/27/2023 Active Entresto 24-26 MG Oral 12/27/2023 A ctive Atorvastatin Calcium 20 MG Oral 12/27/2023 Active Synjardy XR 5-1,000 mg Oral *Pick strength-form from [facility] for eRX* 12/27/2023 Active Cyanocobalamin 1000 MCG/ML Injection 12/27/2023 Active Eliquis 5 MG Oral 12/27/2023 Active Social History Tobacco Use: Social History Observation Description Date Details (start date - stop date) Former Smoker NA - NA Sex Assigned At : Social History Observation Description Sex Assigned At Male Tobacco Control (Standard) Question Answer Notes Tobacco use: Former smoker How long has it been since you last smoked? 5-10 years Section Notes: Substance Use Do you or have you ever smoked tobacco?: Former smoker How many years have you smoked tobacco?: 4 How much tobacco do you smoke?: None When did you quit smoking?: 1-5 years since last cigarette Do you or have you ever used any other forms of tobacco or nicotine?: No Do you or have you ever used e-cigarettes or vape?: Never used electronic cigarettes Do you or have you ever used smokeless tobacco?: Never used smokeless tobacco What was the date of your most recent tobacco screening?: 12/27/2023 Has tobacco cessation counseling been provided?: No What is your level of alcohol consumption?: None How many years have you consumed alcohol?: 30 Do you use any illicit or recreational drugs?: No Which illicit or recreational drugs have you used?: Cocaine, Meth, Harion Have you used IV drugs?: Yes What is your level of caffeine consumption?: Heavy Education and Occupation What is the highest grade or level of school you have completed or the highest degree you have received?: Associate degree: occupational, technical, or vocational program Are you currently employed?: No Who is your employer?: [employer] Marriage and Sexuality What is your relationship status?: Are you sexually active?: Yes Do you use protection during sex?: No How many children do you have?: 0 Home and Environment Do you have any siblings?: 1 Are there any smokers in your house?: No Are there any guns present in your home?: No Diet and Exercise What type of diet are you following?: Cardiac Advance Directive Do you have an advance directive?: No Do you have a medical power of ip technology transactions attorney?: No Other Education: 12 Family history of heart disease?: Yes (Notes: father, mother and grand parents) High blood pressure: Yes High Cholesterol: Yes Past steroid/HgH use?: No Gender Identity and LGBTQ Identity Gender identity: Identifies as Male Assigned sex at : Male Sexual orientation: Straight or heterosexualborn and rasied in [facility], i move to [place] in 1991 we moved to [place] as my brother's son live in [place], 3 time, seperated now 2009, divorce got screwed up, Problems Problem Type SNOMED Code ICD Code Onset Dates Problem Status W/U Status Risk Notes Problem Bipolar I disorder (399634369) Bipolar I disorder (F31.9) Active confirmed Problem Generalized anxiety disorder (98608411) Generalized anxiety disorder (F41.1) 4 Active confirmed Problem Primary insomnia (2165098) Primary insomnia (F51.01) 4 Active confirmed Problem History of alcohol abuse (176678803) History of alcohol abuse (F10.11) Active confirmed Problem Atrial fibrillation (75617457) Unspecified atrial fibrillation (I48.91) 4 Active confirmed Vital Signs Blood pressure systolic 94 mm Hg 05/05/20 24 Blood pressure diastolic 60 mm Hg 024 Heart Rate 92 /min 05/05/2024 Height 73.00 in 05/05/2024 Weight 164 lbs 05/05/2024 BMI 21.63 kg/m2 05/05/2024 Height-cm 185.42 cm 05/05/2024 Weight-kg 74.39 kg 05/05/2024 Encounters Encounter Location Date Provider Diagnosis [facility] [address] [place] [id number] 05/05/2024 Yaneli Valerio Bipolar I disorder F31.9 ; Primary insomnia F51.01 ; Generalized anxiety disorder F41.1 and History of alcohol abuse F10.11 Assessments Encounter Date Diagnosis (ICD Code) Assessment Notes Treatment Notes Treatment Clinical Notes Section Notes 05/05/2024 Bipolar I disorder (ICD-10 - F31.9) cont vraylar 4.5 mg po qd (send as 30 day)cont trintellix 20 mg po qd (send as 90 day) doing wellcont current meds, review r/b/se incl metabolic and movement reports just had metabolic labs with good result, he is going to fax copy here, given number f/u in 4 months, earlier if concerns note: hx a fib 05/05/2024 Primary insomnia (ICD-10 - F51.01) cont mirtazapine 7.5mg qhs (send as 90 day) practice good sleep hygiene 05/05/2024 Generalized anxiety disorder (ICD-10 - F41.1) minimal, trintellix, mirtazapine 05/05/2024 History of alcohol abuse (ICD-10 - F10.11) sober 3 years, no drug use since ctive in AA 05/05/2024 Other past records Plan Of Treatment Medication Medication Name Sig Start Date Stop Date Notes Mirtazapine 7.5 MG 1 tablet at bedtime Oral Once a day for 90 days 12/27/2023 Trintellix 20 MG 1 tablet Oral Once a day for 90 days 01/2024 Vraylar 4.5 mg 1 tablet Oral daily for 30 days 12/27/2023 Treatment Notes Assessment Notes Bipolar I disorder cont vraylar 4.5 mg po qd (send as 30 day)cont trintellix 20 mg po qd (send as 90 day) Primary insomnia cont mirtazapine 7.5mg qhs (send as 90 day) practice good sleep hygiene Generalized anxiety disorder minimal, tr intellix, mirtazapine History of alcohol abuse sober 3 years, no drug use since ctive in AA Other past records Next Appt Details Follow Up: 4 Months, Reason: Provider Name:Ramona mcgowan, 04/01/2025 08:30:00 AM, [facility] [facility] [address] [facility] [address], [address], Progress Notes * CHRISTINE SARMIENTODOB:[birth year] (54 yo M)Acc No.[id number]:05/05/2024 Patient: Stefan CHRISTINE CASTILLO Provider: JEREMY RADER :1970 A ge:54 Y S ex:Male Date:05/05/2024 Address:[address] [place], [place] [id number] Subjective: * Chief Complaints: * 1 . Follow up. * HPI: D epression screening: PHQ-9 L ittle interest or pleasure in doing things N ot at all, F eeling down, depressed, or hopeless N ot at all, T rouble falling or staying asleep, or sleeping too much S everal days, F eeling tired or having little energy N ot at all, P oor appetite or overeating N ot at all, F eeling bad about yourself or that you are a failure, or have let yourself or your family down N ot at all, T rouble concentrating on things, such as reading the newspaper or watching television N ot at all, M oving or speaking so slowly that other people could have noticed; or the opposite, being so fidgety or restless that you have been moving around a lot more than usual N ot at all, T houghts that you would be better off or of hurting yourself in some way N ot at all, T otal Score 1 ,?Interpretation M inimal Depression. D epression Screening: REMY-7 (2018 Edition) F eeling nervous, anxious, or on edge?Not at all, T otal REMY-7 Score 0 , I nterpretation of Total ( 0 to 4) No Anxiety. [place]-Suicide Severity Rating Scale: Suicide Risk (CSRS-screener) i n the past one month Have you wished you were or wished you could go to sleep and not wake up? N o, i n the past one month Have you actually had any thoughts of killing yourself? N o, H ave you ever done anything, started to do anything, or prepared to do anything to end your life? N o. H istory of Presenting Problem: 54 y/o male, has girlfriend, here to follow up for bipolar disorder, anxiety and insomnia. Hx of alcohol use d/o. no med changes, denies side effects things are good, have been a a few AA conference which were good. I got a new vehicle too. denies depression, SI. Anxiety is there but nothing to be concerned about. Denies any carlin, psychosis. Sleep fairly good, usually 8p-6a. satisfied with current medications. Denies alcohol use. Active in AA medical: just had labs in March, my blood sugar went down a point and my total cholesterol was under 200 taking OTC vit D and B12. has stimulator implant in back for chronic sciatica pain, very helpful. hx a fib. G eneral Follow Up: ongoing notes: no tobacco > 3 yrs, a bit of craving if see others using Hx alcohol misuse, sober alcohol since Jun 2020, clean drugs 201001/28/23 CBC, CMP-glucose WNL, lipid-appears normal other than HDL 32, B12, folic acid, TSH, Vit D 36-note on labs to start 2000units daily. * ROS: P sychiatric: Comments S ee [facility] for details. * Medical History: P roblems: Atrial fibrillation, Bipolar disorder, Generalized anxiety disorder, History of alcoholism, Primary insomnia, ,. * Surgical History: H eart surgery , Neurosurgery , Heart surgery 10/12/2021, Neurosurgery 12/22/2012, Heart surgery 05/24/2010, back stimulator 10/2023. * Hospitalization/Major Diagno stic Procedure: D enies Past Hospitalization. * Family History: F ather: Alcohol abuse , Substance abuse . U nspecified Relation: Morbid obesity, Notes: aunt . M other: Depressive disorder . P aternal Grandfather: Family history of sudden cardiac . P aternal Grandmother: Diabetes mellitus . M aternal Grandmother: Family history of cancer . B rother: Substance abuse . * Social History: T obacco Use: T obacco Control (Standard) T obacco use: F ormer smoker, H ow long has it been since you last smoked? 5 -10 years. M igrated Social History: M igrated Social History: Alcohol Intake: None 02/05/2020,Tobacco Years: Former smoker 02/05/2020,Smoking Status: 4 08/30/2023. S ubstance Use Do you or have you ever smoked tobacco?: Former smoker How many years have you smoked tobacco?: 4 How much tobacco do you smoke?: None When did you quit smoking?: 1-5 years since last cigarette Do you or have you ever used any other forms of tobacco or nicotine?: No Do you or have you ever used e-cigarettes or vape?: Never used electronic cigarettes Do you or have you ever used smokeless tobacco?: Never used smokeless tobacco What was the date of your most recent tobacco screening?: 12/27/2023 Has tobacco cessation counseling been provided?: No What is your level of alcohol consumption?: None How many years have you consumed alcohol?: 30 Do you use any illicit or recreational drugs?: No Which illicit or recreational drugs have you used?: Cocaine, Meth, Harion Have you used IV drugs?: Yes What is your level of caffeine consumption?: Heavy Education and Occupation What is the highest grade or level of school you have completed or the highest degree you have received?: Associate degree: occupational, technical, or vocational program Are you currently employed?: No Who is your employer?: [employer] Marriage and Sexuality What is your relationship status?: Are you sexually active?: Yes Do you use protection during sex?: No How many children do you have?: 0 Home and Environment Do you have any siblings?: 1 Are there any smokers in your house?: No Are there any guns present in your home?: No Diet and Exercise What type of diet are you following?: Cardiac Advance Directive Do you have an advance directive?: No Do you have a medical power of ip technology transactions attorney?: No Other Education: 12 Family history of heart disease?: Yes (Notes: father, mother and grand parents) High blood pressure: Yes High Cholesterol: Yes Past steroid/HgH use?: No Gender Identity and LGBTQ Identity Gender identity: Identifies as Male Assigned sex at : Male Sexual orientation: Straight or heterosexualborn and rasied in [facility], i move to [place] in 1991 we moved to [place] as my brother's son live in [place], 3 time, seperated now 2009, divorce got screwed up,. * Medications: T aking Cyanocobalamin 1000 MCG/ML Solution Injection , Taking Entresto 24-26 MG Tablet Oral , Taking TRUEPLUS LANCETS 33 gauge EACH MISCELLANEOUS , Notes to Pharmacist: *Reorder from coComment for eRx and Interaction Alerts*, Taking Metoprolol Succinate ER 50 MG Tablet Extended Release 24 Hour Oral , Taking Trintellix 20 MG Tablet Oral , Taking Pantoprazole Sodium 40 MG Tablet Delayed Release Oral , Taking True Metrix Blood Glucose Test Strip In Vitro , Taking Montelukast Sodium 10 MG Tablet Oral , Taking Synjardy XR 5-1,000 mg Tablet Extended Release 24 Hour Oral , Notes to Pharmacist: *Pick strength-form from [employer]Comment for eRX*, Taking Vraylar 4.5 mg Capsule Oral , Taking Atorvastatin Calcium 20 MG Tablet Oral , Taking Mirtazapine 7.5 MG Tablet Oral , Taking Eliquis 5 MG Tablet Oral , Discontinued hydrOXYzine HCl 25 MG Tablet Oral , Discontinued COVID-19 AT-HOME TEST KIT , Notes to Pharmacist: *Reorder from [facility] for eRx and Interaction Alerts*, Medication List reviewed and reconciled with the patient * Allergies: I cy Hot: Allergy - Onset Date 12/27/2023. Objective: * Vitals: B P:94/60mm Hg, HR:92/min, Wt:164lbs, Wt-k.39 kg, Ht: 73.00 in, Ht-cm: 185.42 cm, BMI:21.63Index, Body Surface Area: 1.96. * Examination: P sychiatry: Appearance: A ppearance: alert,well-groomed, clean, appears well rested. No acute physical distress. B ehavior: eye contact good,cooperative, pleasant. Abnormal body movements: n one. Affect / mood: a ppropriate, full range. Attention: g ood. Attitude: c ooperative. Suicidal ideation: n one. Memory status: n o impairment noted. Degree of awareness of surroundings: w ithin normal limits.? Delusions: n o. Hallucinations: n o. Insight: g ood. Intellectual functioning: n o impairment noted. Judgement: g ood. Orientation: a wake, alert and oriented x 3. Perceptual disorders: n o perceptual disorder noted. Psychomotor activity: w ithin normal range. Speech / language: c lear and coherent, normal rate, v olume is increased ( typical for him), and articulation (RVR), proper grammar used. Thought content: a ppropriate. Thought process: i ntact. Assessment: * Assessment: 1. B ipolar I disorder - F31.9 (Primary) 2 . P rimary insomnia - F51.01? 3. G eneralized anxiety disorder - F41.1 4 . H istory of alcohol abuse - F10.11 Plan: * Treatment: 2. P rimary insomnia Refill Mirtazapine Tablet, 7.5 MG, 1 tablet at bedtime, Oral, Once a day, 90 days, 90 Tablet, Refills 1. Notes: cont mirtazapine 7.5mg qhs (send as 90 day) practice good sleep hygiene 3. G eneralized anxiety disorder Notes:minimal, trintellix, mirtazapine 4. H istory of alcohol abuse Notes: sober 3 years, no drug use since ctive in AA 5. O thers Notes:past records * Procedure Codes: G 8510 NEG SCR D PT NOT ELIG F/U/PLN DOC * Follow Up: 4 Months * Billing Information: * Visit Code: 27012 OFFICE OUTPATIENT VISIT 25 MINUTES DETAILED HISTORY AND EXAM/MODERATE MEDICAL DECISION MAKING. * Procedure Codes: G8510 NEG SCR D PT NOT ELIG F/U/PLN DOC. * Sign off status: Completed true * Provider: JEREMY RADER Date: 0 05/05/2024 Generated for Joe Khanna/Ezra on: 0 12/15/2024 12:05 PM CDT History and Physical Notes * HPI (History of Present Illness) Category Sub-Category Detail Notes Category Not es Depression screening PHQ-9 Little inte rest or pleasure in doing things: Not at all Feeling down, depressed, or hopeless: No t at all Trouble falling or staying asleep, or sl eeping too much: Several days Feeling tired or having little energy: N ot at all Poor appetite or overeating: Not at all Feeling bad about yourself o r that you are a failure, or have let yourself or your family down: Not at all Trouble concentrating on thi ngs, such as reading the newspaper or watching television: Not at all Moving or speaking so slowly that other people could have noticed; or the opposite, being so fidgety or restless that you have been moving around a lot more than usual: Not at all Thoughts that you would be b camilo off or of hurting yourself in some way: Not at all Total Score: 1 Interpretation: Minimal Depression Depression Screening REMY-7 (2018 Edition) Feelin g nervous, anxious, or on edge: Not at all Total REMY-7 Score: 0 Interpretation of Total: (0 to 4) No Anx iety [place]-Suicide Severity Rating Scale Suicide Risk (CSRS-screener) in the past one month Have you wished you were or wished you could go to sleep and not wake up?: No in the past one month Have y ou actually had any thoughts of killing yourself?: No Have you ever done anything, started to do anything, or prepared to do anything to end your life?: No Examination Category Sub-Category Detail Notes Category Not es Psychiatry Appearance: Appearance: alert, well-groomed, clean, appears well rested. No acute physical distress. Behavior: eye contact good, cooperative, pleasant Attitude: cooperative Psychomotor activity: within normal rang e Abnormal body movements: none Attention: good Degree of awareness of surroundings: wit hin normal limits Orientation: awake, alert and tamar ented x 3 Affect / mood: appropriate, full ra nge Speech / language: clear and coherent, normal rate, volume is increased (typical for him), and articulation (RVR), proper grammar used Insight: good Judgement: good Thought process: intact Thought content: appropriate Perceptual disorders: no perceptual diso rder noted Suicidal ideation: none Intellectual functioning: no impairment noted Memory status: no impairment noted Delusions: no Hallucinations: no
--- OUTSIDE RECORDS SUMMARY | 2024-12-15 12:06 | XMS_ITS | Data Portability ---
Author Organization [facility], Main Office Address [address] [place] [address] Care Team Providers Care Christmas Tree Farm Manager Name Role Phone TABBY LEE Primary Care Provider [phone] TABBY LEE Referring Provider Assessment Encounter Date Assessment Date Assessment LastModified by Organization Details LastModified Time 02/13/2024 02/13/2024 This note is dictated and transcribed by [employer]. Ecommerce Project Manager variances may occur. Despite proofreading, typographical errors may occur. Occasional wrong-word or '[id number]-r-[id number]' substitutions may have occurred due to the inherent limitations of voice recording. Read the chart carefully and recognize, using context, where substitutions have occurred. [email or web address] Not available 02/13/2024 16:02:08 10/01/2024 10/01/2024 This note is dictated and transcribed by [employer]. Ecommerce Project Manager variances may occur. Despite proofreading, typographical errors may occur. Occasional wrong-word or '[id number]' substitutions may have occurred due to the inherent limitations of voice recording. Read the chart carefully and recognize, using context, where substitutions have occurred. [email or web address] Not available 10/01/2024 14:50:24 Plan of Treatment Reminders Order Date Submit Date Provider Last Modified By Organization Details Last Modified Time Details Appointments Establish ed Patient 15 2024 10:00A M Theron Bernstein DPM Not available Not available Not available Lab None recorded. Referral None recorded. Procedures None recorded. Surgeries None recorded. Imaging None recorded. Medication Orders None recorded. Patient TargetsNo targets recorded. Patient Instructions Encounter Date Encounter Id Patient Instructions Last Modified By Organization Details Last Modified Time 02/13/2024 [id number] diabetic diet [email or web address] Not available 02/13/2024 16:03:04 diabetic foot care education [email or web address] Not available 02/13/2024 16:03:04 Reason for Referral None Reported. Problems Name Problem SNOMED Code Status Onset Date Resolution Date Notes Provider Name and Address Organization Details Recorded Time Diabetic on diet only 537199233 Active 024 Theron Bernstein DPM [address], [address], [place], [address], [facility] 16:02:27 Dystrophia unguium 53746587 Active 024 Theron Bernstein DPM [address], [address], [place], [address], [facility] 16:02:36 Problem Notes None recorded. Procedures Surgical History Date Name Laterality Status Provider Name and Address Organization Details Recorded Time Nail Debridement completed Theron Bernstein DPM [address], [address], [place], [address], [facility] 02/13/2024 16:02:03 bariatric operative procedure completed Iqra Briseno [facility] 02/13/2024 15:40:54 Back Surgeries completed Iqra Briseno [facility] 02/13/2024 15:41:01 Neck Surgeries completed Iqra Briseno [facility] 02/13/2024 15:41:08 Pacemaker completed Irqa Briseno [facility] 02/13/2024 15:41:20 Foot Surgery completed Iqra Briseno [facility] 02/13/2024 15:41:32 Imaging Results None recorded. Procedure Notes None recorded. Medical Equipment None Reported. Allergies Allergen ID Allergen Name Allergen Category Reaction Reaction Severity Criticality Documentation Date Start Date Code Code System Note Provider Name and Address Organization Details Recorded Time 62831 menthol / methyl salicylat e medicatio n Not available Not available Not available 02/13/2024 86517 7 RxNorm Iqra clark [employer] 15:39:27 Medications Name Sig Start Date Stop Date Status Note LastModified by Organization Details LastModified Time doxycycline hyclate 100 mg capsule TAKE 1 CAPSULE BY MOUTH TWICE A DAY 02/12 completed Not Available Not Available Not Available atorvastati n 20 mg tablet TAKE 1 TABLET BY MOUTH DAILY active Not Available Not Available No t Available BD Luer-Andrea Syringe 3 mL 25 x 5/8 FOR VITAMIN B12 INJECTION S DIRECTED active Not Available Not Available No t Available metoprolol succinate ER 50 mg tablet,exte nded release 24 hr TAKE 1 TABLET BY MOUTH EVERY DAY active Not Available Not Available No t Available doxycycline monohydrate 100 mg capsule TAKE 1 CAPSULE BY MOUTH TWICE A DAY FOR 10 DAYS 02/12 completed Not Available Not Available Not Available pantoprazol e 40 mg tablet,kassie yed release TAKE 1 TABLET BY MOUTH EVERY DAY IN THE MORNING active Not Available Not Available No t Available cyanocobala min (vit B-12) 1,000 mcg/mL injection solution ADMINISTE R 1 MILLILITE R UNDER THE SKIN MONTHLY active Not Available Not Available No t Available tobramycin 0.3 % eye drops INSTILL 1 DROP INTO EACH EYE FOUR TIMES DAILY UNTIL EYES CLEAR active Not Available Not Available No t Available montelukast 10 mg tablet TAKE 1 TABLET BY MOUTH EVERY DAY active Not Available Not Available No t Available mirtazapine 7.5 mg tablet TAKE 1 TABLET BY MOUTH EVERYDAY AT BEDTIME active Not Available Not Available No t Available chlorhexidi ne gluconate 0.12 % mouthwash RINSE MOUTH WITH 15ML (1 CAPFUL) FOR 30 SECONDS IN MORNING AND EVENING AFTER BRUSHING, THEN SPIT active Not Available Not Available No t Available Eliquis 5 mg tablet TAKE 1 TABLET BY MOUTH TWICE A DAY active Not Available Not Available No t Available Entresto 24 mg-26 mg tablet TAKE 1 TABLET BY MOUTH TWICE A DAY active Not Available Not Available No t Available Vraylar 4.5 mg capsule TAKE 1 CAPSULE BY MOUTH EVERY DAY active Not Available Not Available No t Available Trintellix 20 mg tablet TAKE 1 TABLET BY MOUTH EVERY DAY active Not Available Not Available No t Available Synjardy XR 5 mg-1,000 mg tablet, extended release TAKE 1 TABLET BY MOUTH EVERY DAY active Not Available Not Available No t Available Vitals Date Recorded Heart rate Respiratory rate Oxygen saturation Oxygen saturation in Arterial blood by Pulse oximetry Body height Body mass index (BMI) Body weight Systolic blood pressure Diastolic blood pressure Provider Name and Address Organization Details Last Updated DateTime 4 103 /min 14 /min 98 % 98 % 187.96 cm 23.1 kg/m2 29702.6 3 g 112 mm[Hg] 77 mm[Hg] Iqra Briseno [facility] [employer] [facility] 4 15:00:34 Date Recorded Body height Body mass index (BMI) Body weight Heart rate Respiratory rate Oxygen saturation Oxygen saturation in Arterial blood by Pulse oximetry Systolic blood pressure Diastolic blood pressure Provider Name and Address Organization Details Last Updated DateTime 5 187.96 cm 23.1 kg/m2 60221.6 3 g 87 /min 14 /min 99 % 99 % 141 mm[Hg] 87 mm[Hg] Iqra Briseno [facility] [employer] [facility] 5 14:18:13 Social History Question Answer Notes LastModified by Organizat ion Details LastModified Time Tobacco Smoking Status Former Smoker [facility] [employer] [facility] 02/13/2024 15:40:46 What Is Your Level Of Alcohol Consumption? None Information not available 02/13/2024 What Is Your Level Of Caffeine Consumption? Occasional Information not available 02/13/2024 What Was The Date Of Your Most Recent Tobacco Screening? 02/13/2024 Information not available 02/13/2024 Do You Use Any Illicit Or Recreational Drugs? No Information not available 02/13/2024 Has Tobacco Cessation Counseling Been Provided? No Information not available 02/13/2024 Do You Or Have You Ever Used Any Other Forms Of Tobacco Or Nicotine? No Information not available 02/13/2024 Sex: Unknown Functional Status None recorded. Mental Status None recorded. Family History Relationship Description Onset Age of this Age Resolved Age Notes LastModified by Organization Details LastModified Time Father Hypertensive disorder Not available 2023 15:39:46 Father Heart disease Not available 2023 15:39:58 Mother Heart disease Not available 2023 15:39:58 Unspecified Relation Family history of malignant neoplasm Not available 2023 15:40:08 Unspecified Relation Osteoporosis Not available 01/22 15:40:22 Medical History Condition Response ARTHRITIS Y USE OF BLOOD THINNERS Y KIDNEY DISEASE Y HEART DISEASE/HEART PROBLEMS Y DIABETES, TYPE Y ALLERGIES/HAYFEVER Y HEARTBURN / REFLUX Y HIGH CHOLESTEROL / HYPERLIPIDEMIA Y CARDIAC ARRHYTHMIA Y ANXIETY DISORDER Y OBESITY Y ANEMIA/BLOOD DISORDER Y OSTEOPOROSIS Y USE OF NSAIDS Y BACK / NECK PROBLEMS Y DEPRESSION (INCLUDING POST ) Y Past Encounters Encounter ID Performer Location Encounter Start Date Encounter Closed Date Diagnosis/Indication Diagnosis SNOMED-CT Code Diagnosis ICD10 Code Diagnosis Note [id number] Theron Bernstein DPM [facility] [place] [address] [place] [address] 02/13/2024 14:54:01 02/14/2024 10:41:33 Diabetic on diet only 873909260 E11.9 continue diabetic control per PCP recommenda tionsCheck feet daily for wounds infections if present seek medical attention immediatel yWear supportive shoe gear dailyFollo w-up in 6 months Dystrophia unguium 72348 009 L60.3 Nails 1 through 10 were debrided with sharp mechanical debridemen t without incident. Nails were debrided and greater than 50% length and thickness where needed. [id number] Theron Bernstein DPM [facility] [place] [address] [place] [address] 10/01/2024 14:12:29 10/07/2024 08:50:15 Diabetic on diet only 492328689 E11.9 continue diabetic control per PCP recommenda tionsCheck feet daily for wounds infections if present seek medical attention immediatel yWear supportive shoe gear dailyFollo w-up in 3 months Dystrophia unguium 93731 009 L60.3 Nails 1 through 10 were debrided with sharp mechanical debridemen t without incident. Nails were debrided and greater than 50% length and thickness where needed. Health Concerns Section Related Observation LastModified by Organization Detai ls LastModified Time None Recorded Concern Status LastModified by Organization Details LastModified Time None Recorded Advance Directives Directive None Recorded Payers Encounter Date Sequence Insurance Name Policy Number Policy Diehl Covered Member ID Diehl Member ID Guarantor Name 02/13/2024 1 [facility] (MEDICARE REPLACEMENT/A DVANTAGE - PPO) [id number] Jamie Garcia [id number] Jamie Garcia 10/01/2024 1 [facility] (MEDICARE REPLACEMENT/A DVANTAGE - PPO) [id number] FernandezMichael Garcia [id number] Jamie Garcia Notes Date Note Type Note Provider Name and Address Organization Details Recorded Time 02/13/2024 text/html . Patient is a 53-year-old male who presents the office for diabetic foot evaluation. Patient states that he is no longer on medications due to weight loss in his currently diet controlled diabetic. Patient denies any numbness tingling or burning in the feet. 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 Patient states that he has no intermittent claudication walking or rest pain. Patient denies any other complaints. Theron Bernstein DPM [address], [place], [address], [place] 02/13/2024 16:03:39 10/01/2024 text/html . Patient is a 54-year-old male diabetic history of smoking. Patient denies any intermittent claudication or wounds. Patient states that his feet do feel cold but denies any history of nonhealing wounds. Patient states overall he has been doing well he needs his toenails cut as they are long he has difficulty cutting them. Patient has mild hammertoes to the left foot but denies any wounds to the toes or pain. Patient denies any other complaints. Theron Bernstein DPM [address], [place], [address], [place] 10/01/2024 14:50:56
--- OUTSIDE RECORDS SUMMARY | 2024-12-15 12:06 | XMS_ITS | Clinical Summary ---
Author Organization [facility] Address [address], [place] [address] Phone Care Team Providers Care Airline Reservationist Name Role Phone Jerman Hamilton MD Primary Care Provider [phone] Allergies Active Allergy Reactions Criticality Noted Date Comments Icy Hot 12/03/2011 Nsaids 06/19/2010 Other reaction(s): Unknown Pt has had a gastric bypass in 2008. Prone to bleeding ulcers no NSAIDS allowed. Medications Medication Sig Dispensed Refills Start Date End Date Status Eliquis 5 MG tablet 08/25/2021 Activ e ascorbic acid (VITAMIN C) 500 MG tablet Take 500 mg by mouth daily Active atorvastatin (LIPITOR) 20 MG tablet 07/16/2021 Active B Complex-C (B complex-vitamin C) tablet Take 1 tablet by mouth daily Active Vraylar 4.5 MG capsule 08/23/2021 Active cyanocobalamin (VITAMIN B-12) 1000 MCG/ML injection ADMINISTER 1 ML UNDER THE SKIN MONTHLY 06/17/2021 Active Synjardy XR 5-1000 MG tablet sustained-release 24 hour 07/25/2021 Active ferrous sulfate 324 MG tablet delayed-release Take 324 mg by mouth 2 times daily Active gabapentin (NEURONTIN) 300 MG capsule Take 300 mg by mouth 3 (three) times a day 08/24/2021 Active metoprolol succinate XL (TOPROL-XL) 50 MG 24 hr tablet 07/03/2021 Active montelukast (SINGULAIR) 10 MG tablet 07/03/2021 Active pantoprazole (PROTONIX) 40 MG EC tablet 07/21/2021 Active Trintellix 20 MG tablet 08/02/2021 Active Probiotic Product (PROBIOTIC ADVANCED PO) Take 1 capsule by mouth daily Active Calcium Carb-Cholecalciferol (Calcium Carbonate-Vitamin D3) 600-400 MG-UNIT tablet Take by mouth Active Multiple Vitamin (MULTIVITAMINS PO) Take by mouth Act kingsley Entresto 24-26 MG per tablet Take 1 tablet by mouth in the morning and 1 tablet before bedtime. 06/25/2022 Active Active Problems Problem Noted Date Diagnosed Date Diabetes mellitus without me ntion of complication, type II or unspecified type, not stated as uncontrolled 08/31/2021 Benign essential hypertension 08/03/2015 Pure hypercholesterolemia 08/03/2015 Paroxysmal atrial fibrillation 01/22/2013 Orthostatic hypotension 09/17/2012 Dilated cardiomyopathy 10/07/2010 Stricture of esophagus 06/16/2010 Bipolar disorder 01/03/2009 Immunizations Name Administration Dates Next Due Influenza TIV (IM) 06/20/2022,07/07/2021 Influenza, Injectable, Quadrivalent, Preservativ e Free 07/06/2020 Pneumococcal, Unspecified 06/17/2010 Social History Tobacco Use Types Packs/Day Years Used Date Smoking Tobacco: Former Smokeless Tobacco: Former Alcohol Use Standard Drinks/Week Comments Not Currently 0 (1 standard drink = 0.6 oz pur e alcohol) Sex and Gender Information Value Date Recorded Sex Assigned at Male 01/24/2022 10:16 AM MDT Gender Identity Male 01/24/2022 10:16 AM MDT Sexual Orientation Not on file Last Filed Vital Signs Vital Sign Reading Time Taken Comments Blood Pressure 118/80 07/25/2022 11:30 AM CDT Pulse 72 07/25/2022 11:30 AM CDT Temperature 36.4 C (97.6 F) 07/25/2022 11:30 AM CDT Respiratory Rate - - Oxygen Saturation - - Inhaled Oxygen Concentration - - Weight 79.4 kg (175 lb) 07/25/2022 11:30 AM CDT Height 185.4 cm (6' 1 ) 07/25/2022 11:30 AM CDT Body Mass Index 23.09 07/25/2022 11:30 AM CDT Plan of Treatment Health Maintenance Due Date Last Done Comments Diabetic Foot Exam 1980 Ophthalmology Exam 1980 Pneumococcal PPSV23 Highest Risk Adult (1 of 3 - PCV13) 1989 Influenza Vaccine (#1) 2024 2, 07/07/2021, 07/06/2020 Care Teams Airline Reservationist Relationship Specialty Start Date End Date Jerman Hamilton MD [address] [place] [address] PCP - General Internal Medicine 06/07/21
--- OUTSIDE RECORDS SUMMARY | 2024-12-15 12:06 | XMS_ITS | Continuity of Care Document ---
Author Organization [facility] Address [address] [place] [address] Phone Care Team Providers Care Sales Performance Manager Name Role Phone No Information Unavailable Unavailable Advance Directives Directive Yes / No Effective Date File Name No Information Encounters Encounter Description Practice Location Reason(s) For Visit Diagnoses Date Provider Providers Copied on Encounter [facility], [address] [place] [address], [address], [place] tel:[phone] No Information No Information Family History Family Member Type Diagnosis Age At Onset No Information Payers Payer name Insurance type Covered libertarian ID Authoriza tion(s) No Information Social History [...]
--- OUTSIDE RECORDS SUMMARY | 2024-12-15 12:06 | XMS_ITS ---
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 Name Role Phone Jerman Hamilton MD Primary Care Provider Ramona Zepeda Unavailable [phone] Allergies Allergen (clinical drug ingredient) Drug/Non Drug Allergy documented on EMR Reaction Allergy Type Onset Date Status menthol Icy Hot Unknown Drug Allergy 12/27/2023 Active REASON FOR VISIT Follow up bipolar disorder, anxiety, insomnia, hx alcohol and drug use Medications Medication SIG (Take, Route, Frequency, Duration) Notes Start Date End Date Status Trintellix 20 MG 1 tablet Oral Once a day for 90 days 12/27/2023 Active Synjardy XR 5-1,000 mg Oral *Pick strength-form from [employer] for eRX* 12/27/2023 Active Montelukast Sodium 10 MG Oral 12/27/2023 Active Eliquis 5 MG Oral 12/27/2023 Active Atorvastatin Calcium 20 MG Oral 12/27/2023 Active True Metrix Blood Glucose Test In Vitro 12/27/2023 Active Pantoprazole Sodium 40 MG Oral 12/27/2023 Active TRUEPLUS LANCETS 33 gauge MISCELLANEOUS *Reorder from [employer] for eRx and Interaction Alerts* 12/27/2023 Active Entresto 24-26 MG Oral 12/27/2023 A ctive Metoprolol Succinate ER 50 MG Oral 12/27/2023 Active Vraylar 4.5 mg 1 tablet Oral daily for 30 days 12/27/2023 Active Mirtazapine 7.5 MG 1 tablet at bedtime Oral Once a day for 90 days 12/27/2023 Active Cyanocobalamin 1000 MCG/ML Injection 12/27/2023 Active Social History Sex Assigned At : Social History Observation Description Sex Assigned At Male Section Notes: Substance Use Do you or [...] Do you have a medical power of workers compensation defense attorney?: No Other Education: 12 Family history of heart disease?: Yes (Notes: father, mother and grand parents) High blood pressure: Yes High Cholesterol: Yes Past steroid/HgH use?: No Gender Identity and LGBTQ Identity Gender identity: Identifies as Male Assigned sex at : Male Sexual orientation: Straight or heterosexualborn and rasied in [facility], i move to [place] in 1991 we moved to [place] as my brother's son live in [place], 3 time, seperated now 2009, divorce got screwed up, Vital Signs Blood pressure systolic 104 mm Hg 09/04/20 24 Blood pressure diastolic 69 mm Hg 024 Heart Rate 103 /min 09/04/2024 Height 73.00 in 09/04/2024 Height-cm 185.42 cm 09/04/2024 Encounters Encounter Location Date Provider Diagnosis [facility] [address] [facility] [address] [place] [address] 09/04/2024 Ramona Monaco Bipolar I disorder F31.9 ; Primary insomnia F51.01 and Generalized anxiety disorder F41.1 Assessments Encounter Date Diagnosis (ICD Code) Assessment Notes Treatment Notes Treatment Clinical Notes Section Notes 09/04/2024 Bipolar I disorder (ICD-10 - F31.9) Assessment and Plan: 1. Bipolar Disorder - Stable mood, no recent manic episodes - Period of depression, likely situational due to girlfriend's health concerns Plan: - Continue Vraylar 4.5 mg daily - Continue Trintellix 20 mg daily - No medication changes at this time 2. Insomnia - Sleeping well with mirtazapine Plan: - Continue mirtazapine 7.5 mg at night - No medication changes at this time 3. Anxiety - Denies recent panic attacks or significant anxiety symptoms Plan: - No medication changes at this time 4. Substance Use Disorder (in remission) - Sober, no recent cravings or relapses Plan: - Encourage continued sobriety and support 5. Weight Management - Recent weight gain, desires to lose weight Plan: - Encourage healthy diet, exercise, and lifestyle modifications Encourage engagement in social activities, volunteering, and hobbies Follow-up in 3 months to reassess patient's progress and medication management. Sooner if concerns arise 09/04/2024 Primary insomnia (ICD-10 - F51.01) Assessment and Plan: 1. Bipolar Disorder - Stable mood, no recent manic episodes - Period of depression, likely situational due to girlfriend's health concerns Plan: - Continue Vraylar 4.5 mg daily - Continue Trintellix 20 mg daily - No medication changes at this time 2. Insomnia - Sleeping well with mirtazapine Plan: - Continue mirtazapine 7.5 mg at night - No medication changes at this time 3. Anxiety - Denies recent panic attacks or significant anxiety symptoms Plan: - No medication changes at this time 4. Substance Use Disorder (in remission) - Sober, no recent cravings or relapses Plan: - Encourage continued sobriety and support 5. Weight Management - Recent weight gain, desires to lose weight Plan: - Encourage healthy diet, exercise, and lifestyle modifications Encourage engagement in social activities, volunteering, and hobbies Follow-up in 3 months to reassess patient's progress and medication management. Sooner if concerns arise 09/04/2024 Generalized anxiety disorder (ICD-10 - F41.1) Assessment and Plan: 1. Bipolar Disorder - Stable mood, no recent manic episodes - Period of depression, likely situational due to girlfriend's health concerns Plan: - Continue Vraylar 4.5 mg daily - Continue Trintellix 20 mg daily - No medication changes at this time 2. Insomnia - Sleeping well with mirtazapine Plan: - Continue mirtazapine 7.5 mg at night - No medication changes at this time 3. Anxiety - Denies recent panic attacks or significant anxiety symptoms Plan: - No medication changes at this time 4. Substance Use Disorder (in remission) - Sober, no recent cravings or relapses Plan: - Encourage continued sobriety and support 5. Weight Management - Recent weight gain, desires to lose weight Plan: - Encourage healthy diet, exercise, and lifestyle modifications Encourage engagement in social activities, volunteering, and hobbies Follow-up in 3 months to reassess patient's progress and medication management. Sooner if concerns arise Plan Of Treatment Medication Medication Name Sig Start Date Stop Date Notes Trintellix 20 MG 1 tablet Oral Once a day for 90 days 01/2024 Vraylar 4.5 mg 1 tablet Oral daily for 30 days 12/27/2023 Mirtazapine 7.5 MG 1 tablet at bedtime Oral Once a day for 90 days 12/27/2023 Next Appt Details Follow Up: 3 Months, Reason: Provider Name:Ramona mcgowan, 04/01/2025 08:30:00 AM, [address], [address], [place], [address], Progress Notes * CHRISTINE SARMIENTO:[birth year] (54 yo M)Acc No.[id number]:09/04/2024 Patient: CHRISTINE BERKOWITZ Provider: Noelle Monaco :1970 A ge:54 Y S ex:Male Date:09/04/2024 Address:[address] [place], [place] [address]Yayo Lorenza [place] [address] Pcp:Jerman Hamilton MD Subjective: * Chief Complaints: * F ollow up bipolar disorder, anxiety, insomnia, hx alcohol and drug use * HPI: D epression Screening: REMY-7 (2018 Edition) F eeling nervous, anxious, or on edge?Not at all, N ot being able to stop or control worrying N ot at all, W orrying too much about different things N ot at all, T rouble relaxing N ot at all, B eing so restless that it is hard to sit still N ot at all, B ecoming easily annoyed or irritable N ot at all, F eeling afraid as if something awful might happen N ot at all, T otal REMY-7 Score 0 , I nterpretation of Total ( 0 to 4) No Anxiety. D epression screening: PHQ-9 L ittle interest or pleasure in doing things N ot at all, F eeling down, depressed, or hopeless N ot at all, T rouble falling or staying asleep, or sleeping too much S everal days, F eeling tired or having little energy S everal days, P oor appetite or overeating N ot [...] N ot at all, T otal Score 2 , Interpretation M inimal Depression. I ntervention D epression Screening Findings?Negative, S uicide Risk Assessment Performed . H istory of Presenting Problem: 54 y/o male, lives with girlfriend in a duplex with his mom on the other side, here to follow up for bipolar disorder, anxiety and insomnia. Hx of alcohol use d/o, sober 8 years. Brother is legal guardian Presents today that things are going very well right now. Approx four months ago he had a period of depressed mood, while his girlfriend was having some health issues. p eriod of not showering. she has CHELE with bipap, and was having period of lethargy, ongoing. Finally figured out her pressure neded adjusted on her bipap, adnd it is now resolved as of this week. He endorses it was a concerning time for him. He was very worried about her, getting anxious, wasn't really t aking care of himself, got depressed for a period. Was sleeping too much, low motivation and energy. Anxiety related to her health. B ut the last few weeks that has been much better. Making a point to socialize and do things that interest him again, denies depressed mood currently. Feels the anxiety and mood changes at that time were purely situational, and he was able to cope well and pull himself out of it . Sleeping good now, restful. Denies SI, psychosis, panic attacks. Appetite good for the most part. Trying to lose some weight, was trying to gain weight previously for being too thin, but had gained a little more than he had hoped for, but not concerning, does not feel his medications are causing any problems, no side effect concerns. Denies episodes of carlin, [place] time he has been spending more money, for gifts, being mindful. He likes his medications, has been stable on this combo for quite some time, does not feel need to change anything right now. He feels safe and stable, good insight if things are getting problematic. Sees his mom daily and brother often. Feels well supportive, denies substance use. * ROS: G eneral / Constitutional: Patient denies c hange in appetite, fatigue, headache, lightheadedness, sleep disturbance. P atient complains of s leep disturbance (see HPI). ? C ardiovascular: Patient denies c hest pain, dizziness, palpitations, swelling in hands / feet. G astrointestinal: Patient denies a bdominal pain, change in bowel habits, nausea, vomiting, difficulty swallowing. N eurologic: Patient denies b alance difficulty, confusion, dizziness, fainting, headache, irritability, tremor, tic, seizures. P sychiatric: Patient denies s uicidal thoughts, psychosis, auditory / visual hallucinations, delusions, carlin. C [facility] for more details. P erformance Met: N ormal blood pressure reading documented, follow-up not required ( G8783). * Medical History: * Surgical History: H eart surgery Neurosurgery Heart surgery 10/12/2021Neurosurgery 12/22/2012Heart surgery 05/24/2010ack stimulator 10/2023 * Hospitalization/Major Diagno stic Procedure: N o Hospitalization History. * Family History: F ather: Alcohol abuse , Substance abuse . U nspecified Relation: Morbid obesity, Notes: aunt . M other: Depressive disorder . P aternal Grandfather: Family history of sudden cardiac . P aternal Grandmother: Diabetes mellitus . M aternal Grandmother: Family history of cancer . B rother: Substance abuse . * Social History: M igrated Social History: M igrated Social [...] Do you have a medical power of workers compensation defense attorney?: No Other Education: 12 Family history of heart disease?: Yes (Notes: father, mother and grand parents) High blood pressure: Yes High Cholesterol: Yes Past steroid/HgH use?: No Gender Identity and LGBTQ Identity Gender identity: Identifies as Male Assigned sex at : Male Sexual orientation: Straight or heterosexualborn and rasied in [facility], i move to [place] in 1991 we moved to [place] as my brother's son live in [place], 3 time, seperated now 2009, divorce got screwed up,. * Medications: T akingCyanocobalamin 1000 MCG/ML Solution Injection Entresto 24-26 MG Tablet Oral TRUEPLUS LANCETS 33 gauge EACH MISCELLANEOUS , Notes to Pharmacist: *Reorder from [employer] for eRx and Interaction Alerts*Metoprolol Succinate ER 50 MG Tablet Extended Release 24 Hour Oral Pantoprazole Sodium 40 MG Tablet Delayed Release Oral True Metrix Blood Glucose Test Strip In Vitro Montelukast Sodium 10 MG Tablet Oral Synjardy XR 5-1,000 mg Tablet Extended Release 24 Hour Oral , Notes to Pharmacist: *Pick strength-form from [employer] for eRX*Atorvastatin Calcium 20 MG Tablet Oral Eliquis 5 MG Tablet Oral Trintellix 20 MG Tablet 1 tablet Oral Once a day Vraylar 4.5 mg Capsule 1 tablet Oral daily Mirtazapine 7.5 MG Tablet 1 tablet at bedtime Oral Once a day Medication List reviewed and reconciled with the patientTaking Cyanocobalamin 1000 MCG/ML Solution Injection Taking Entresto 24-26 MG Tablet Oral Taking TRUEPLUS LANCETS 33 gauge EACH MISCELLANEOUS , Notes to Pharmacist: *Reorder from [facility] for eRx and Interaction Alerts*Taking Metoprolol Succinate ER 50 MG Tablet Extended Release 24 Hour Oral Taking Pantoprazole Sodium 40 MG Tablet Delayed Release Oral Taking True Metrix Blood Glucose Test Strip In Vitro Taking Montelukast Sodium 10 MG Tablet Oral Taking Synjardy XR 5-1,000 mg Tablet Extended Release 24 Hour Oral , Notes to Pharmacist: *Pick strength-form from [facility] for eRX*Taking Atorvastatin Calcium 20 MG Tablet Oral Taking Eliquis 5 MG Tablet Oral Taking Trintellix 20 MG Tablet 1 tablet Oral Once a day Taking Vraylar 4.5 mg Capsule 1 tablet Oral daily Taking Mirtazapine 7.5 MG Tablet 1 tablet at bedtime Oral Once a day Medication List reviewed and reconciled with the patient * Allergies: I cy Hot: Allergy - Onset Date 12/27/2023no[Allergies Verified] Objective: * Vitals: B P:104/69mm Hg, HR:103/min, Ht: 73.00 in, Ht-cm: 185.42 cm. * Examination: P sychiatry: Appearance: a lert, pleasant, groomed, w ell-nourished and in no acute distress. Abnormal body movements: n one. Affect / mood: a ppropriate, full range. Attention: g ood, normal in conversation. Attitude: c ooperative, open-minded with collaborative approach. Homicidal ideation: n one. Suicidal ideation: n one. Memory status: n o impairment noted. Degree of awareness of surroundings: w ithin normal limits.? Delusions: n o. Hallucinations: n o. Insight: g ood. Intellectual functioning: n o impairment noted. Judgement: g ood. Orientation: a wake, alert and oriented x 3. Psychomotor activity: w ithin normal range. Speech / language: a ppropriate pitch/modulation, clear and coherent, normal rate, volume, and articulation (RVR), proper grammar used. Thought content: a ppropriate. Thought process: i ntact. Assessment: * Assessment: 1. B ipolar I disorder - F31.9 (Primary) 2 . P rimary insomnia - F51.01? 3. G eneralized anxiety disorder - F41.1 Assessment and Plan: 1. Bipolar Disorder - Stable mood, no recent manic episodes - Period of depression, likely situational due to girlfriend's health concerns Plan: - Continue Vraylar 4.5 mg daily - Continue Trintellix 20 mg daily - No medication changes at this time 2. Insomnia - Sleeping well with mirtazapine Plan: - Continue mirtazapine 7.5 mg at night - No medication changes at this time 3. Anxiety - Denies recent panic attacks or significant anxiety symptoms Plan: - No medication changes at this time 4. Substance Use Disorder (in remission) - Sober, no recent cravings or relapses Plan: - Encourage continued sobriety and support 5. Weight Management - Recent weight gain, desires to lose weight Plan: - Encourage healthy diet, exercise, and lifestyle modifications Encourage engagement in social activities, volunteering, and hobbies Follow-up in 3 months t o reassess patient's progress and medication management. Sooner if concerns arise Plan: * Treatment: 2. P rimary insomnia Refill Mirtazapine Tablet, 7.5 MG, 1 tablet at bedtime, Oral, Once a day, 90 days, 90 Tablet, Refills 1. * Procedure Codes: G 8783 NORMAL BP READING DOC F/U NOT [id number] BEHAV ASSMT W/SCORE & DOCD/STAND [id number] VISIT COMPLEXITY INHERENT TO ONGOING CARE RELATED TO A PATIENT'S SINGLE, SERIOUS CONDITION OR A COMPLEX CONDITION * Follow Up: 3 Months * Billing Information: * Visit Code: 96507 OFFICE OUTPATIENT VISIT 25 MINUTES DETAILED HISTORY AND EXAM/MODERATE MEDICAL DECISION MAKING. * Procedure Codes: G8783 NORMAL BP READING DOC F/U NOT RQR. 00059 BEHAV ASSMT W/SCORE & DOCD/STAND INSTRUMENT. G2211 VISIT COMPLEXITY INHERENT TO ONGOING CARE RELATED TO A PATIENT'S SINGLE, SERIOUS CONDITION OR A COMPLEX CONDITION. * TRIC MOTOR CONTROLS ASSEMBLER Electronically co-signed by Vipul Quiroga MD on 09/28/2024 at 01:51 PM ELECTRIC MOTOR CONTROLS ASSEMBLER Sign off status: Completed Addendum: * true * Provider: Noelle Monaco Date: 11/05/2023 Generated for Joe montoya/Alexandra/eTransmitting on: 0 12/15/2024 12:05 PM CDT History and Physical Notes * HPI (History of Present Illness) Category Sub-Category Detail Notes Category Not es History of Presenting Problem 54 y/o male, lives with girlfriend in a duplex with his mom on the other side, here to follow up for bipolar disorder, anxiety and insomnia. Hx of alcohol use d/o, sober 8 years. Brother is legal guardian Presents today that things are going very well right now. Approx four months ago he had a period of depressed mood, while his girlfriend was having some health issues. period of not showering. she has CHELE with bipap, and was having period of lethargy, ongoing. Finally figured out her pressure neded adjusted on her bipap, adnd it is now resolved as of this week. He endorses it was a concerning time for him. He was very worried about her, getting anxious, wasn't really taking care of himself, got depressed for a period. Was sleeping too much, low motivation and energy. Anxiety related to her health. But the last few weeks that has been much better. Making a point to socialize and do things that interest him again, denies depressed mood currently. Feels the anxiety and mood changes at that time were purely situational, and he was able to cope well and pull himself out of it . Sleeping good now, restful. Denies SI, psychosis, panic attacks. Appetite good for the most part. Trying to lose some weight, was trying to gain weight previously for being too thin, but had gained a little more than he had hoped for, but not concerning, does not feel his medications are causing any problems, no side effect concerns. Denies episodes of carlin, [place] time he has been spending more money, for gifts, being mindful. He likes his medications, has been stable on this combo for quite some time, does not feel need to change anything right now. He feels safe and stable, good insight if things are getting problematic. Sees his mom daily and brother often. Feels well supportive, denies substance use Depression screening PHQ-9 Little inte rest or pleasure in doing things: Not at all Feeling down, depressed, or hopeless: No t at all Trouble falling or staying asleep, or sl eeping too much: Several days Feeling tired or having little energy: S everal days Poor appetite or overeating: Not at all [...] some way: Not at all Total Score: 2 Interpretation: Minimal Depression Intervention Depression Screening Findings: N egative Suicide Risk Assessment Performed: ____ Depression Screening REMY-7 (2018 Edition) Feelin g nervous, anxious, or on edge: Not at all Not being able to stop or control worryi ng: Not at all Worrying too much about different things : Not at all Trouble relaxing: Not at all Being so restless that it is hard to sit still: Not at all Becoming easily annoyed or irritable: No t at all Feeling afraid as if something awful ramiro ht happen: Not at all Total REMY-7 Score: 0 Interpretation of Total: (0 to 4) No Anx iety Examination Category Sub-Category Detail Notes Category Not es Psychiatry Appearance: alert, pleasant, groomed, well-nourished and in no acute distress Attitude: cooperative, open-mi nded with collaborative approach Psychomotor activity: within normal rang e Abnormal body movements: none Attention: good, normal in conv ersation Degree of awareness of surroundings: wit hin normal limits Orientation: awake, alert and tamar ented x 3 Affect / mood: appropriate, full ra nge Speech / language: appropriate pitch/mo dulation, clear and coherent, normal rate, volume, and articulation (RVR), proper grammar used Insight: good Judgement: good Thought process: intact Thought content: appropriate Suicidal ideation: none Homicidal ideation: none Intellectual functioning: no impairment noted Memory status: no impairment noted Delusions: no Hallucinations: no
--- OUTSIDE RECORDS SUMMARY | 2024-12-15 12:06 | XMS_ITS ---
Author Organization [facility] Address [address] [facility] [address] [place] [address] Care Team Providers Care Town Administrator Name Role Phone Jerman Hamilton MD Primary Care Provider Ramona Zepeda Unavailable [phone] Allergies Allergen (clinical drug ingredient) Drug/Non Drug Allergy documented on EMR Reaction Allergy Type Onset Date Status menthol Icy Hot Unknown Drug Allergy 12/27/2023 Active REASON FOR VISIT follow-up, Depression screening negative Medications Medication SIG (Take, Route, Frequency, Duration) Notes Start Date End Date Status Atorvastatin Calcium 20 MG Oral 12/27/2023 Active Mirtazapine 7.5 MG 1 tablet at bedtime Oral Once a day for 30 days Active Synjardy XR 5-1,000 mg Oral *Pick strength-form from [facility] for eRX* 12/27/2023 Active Vraylar 4.5 mg 1 tablet Oral daily for 30 days Active Eliquis 5 MG Oral 12/27/2023 Active Trintellix 20 MG 1 tablet Oral Once a day for 30 days Active True Metrix Blood Glucose Test In Vitro 12/27/2023 Active Pantoprazole Sodium 40 MG Oral 12/27/2023 Active Metoprolol Succinate ER 50 MG Oral 12/27/2023 Active Montelukast Sodium 10 MG Oral 12/27/2023 Active TRUEPLUS LANCETS 33 gauge MISCELLANEOUS *Reorder from [facility] for eRx and Interaction Alerts* 12/27/2023 Active Entresto 24-26 MG Oral 12/27/2023 A ctive Cyanocobalamin 1000 MCG/ML Injection 12/27/2023 Active Social History Tobacco Use: Social [...] Do you have a medical power of attorney law clerk?: No Other Education: 12 Family history of heart disease?: Yes (Notes: father, mother and grand parents) High blood pressure: Yes High Cholesterol: Yes Past steroid/HgH use?: No Gender Identity and LGBTQ Identity Gender identity: Identifies as Male Assigned sex at : Male Sexual orientation: Straight or heterosexualborn and [facility], i move to [place] in 1991 we moved to [place] as my brother's son live in [place], 3 time, seperated now 2009, divorce got screwed up, Problems Problem Type SNOMED Code ICD Code Onset Dates Problem Status W/U Status Risk Notes Problem Depressed bipolar I disorder in remission (15199393) Bipolar disorder, in partial remission, most recent episode depressed (F31.75) Active confirmed Vital Signs Blood pressure systolic 97 mm Hg 12/04/19 25 Blood pressure diastolic 68 mm Hg 025 Heart Rate 92 /min 12/03/2024 Height 73.00 in 12/03/2024 Weight 193 lbs 12/03/2024 BMI 25.46 kg/m2 12/03/2024 Height-cm 185.42 cm 12/03/2024 Weight-kg 87.54 kg 12/03/2024 Encounters Encounter Location Date Provider Diagnosis [facility] [address] [address] 12/03/2024 Ramona Monaco Encounter for screening for cardiovascular disorders Z13.6 ; Encounter for screening for depression Z13.31 ; Bipolar I disorder F31.9 ; Primary insomnia F51.01 ; Generalized anxiety disorder F41.1 and Bipolar disorder, in partial remission, most recent episode depressed F31.75 Assessments Encounter Date Diagnosis (ICD Code) Assessment Notes Treatment Notes Treatment Clinical Notes Section Notes 12/03/2024 Encounter for screening for cardiovascular disorders (ICD-10 - Z13.6) Assessment and Plan: 1. Bipolar Disorder - Stable mood, no recent manic or depressive episodes Plan: - Continue Vraylar 4.5 mg daily [...] and medication management. Sooner if concerns arise 12/03/2024 Encounter for screening for depression (ICD-10 - Z13.31) Assessment and Plan: 1. Bipolar Disorder - Stable mood, no recent manic or depressive episodes Plan: - Continue Vraylar 4.5 mg daily [...] and medication management. Sooner if concerns arise 12/03/2024 Bipolar I disorder (ICD-10 - F31.9) Assessment and Plan: 1. Bipolar Disorder - Stable mood, no recent manic or depressive episodes Plan: - Continue Vraylar 4.5 mg daily [...] and medication management. Sooner if concerns arise 12/03/2024 Primary insomnia (ICD-10 - F51.01) Assessment and Plan: 1. Bipolar Disorder - Stable mood, no recent manic or depressive episodes Plan: - Continue Vraylar 4.5 mg daily [...] and medication management. Sooner if concerns arise 12/03/2024 Generalized anxiety disorder (ICD-10 - F41.1) Assessment and Plan: 1. Bipolar Disorder - Stable mood, no recent manic or depressive episodes Plan: - Continue Vraylar 4.5 mg daily [...] and medication management. Sooner if concerns arise 12/03/2024 Bipolar disorder, in partial remission, most recent episode depressed (ICD-10 - F31.75) Assessment and Plan: 1. Bipolar Disorder - Stable mood, no recent manic or depressive episodes Plan: - Continue Vraylar 4.5 mg daily [...] at bedtime Oral Once a day for 30 days Vraylar 4.5 mg 1 tablet Oral daily for 30 days Trintellix 20 MG 1 tablet Oral Once a day for 30 days Next Appt Details Provider Name:Ramona mcgowan, 04/01/2025 08:30:00 AM, [address] [facility] [address], [facility] [address], [place], [address], Progress Notes * CHRISTINE SARMIENTODOB:[birth year] (54 yo M)Acc No.[id number]:12/03/2024 Patient: CHRISTINE BERKOWITZ Provider: Noelle Monaco :1970 A ge:54 Y S ex:Male Date:12/03/2024 Address:[address] [place], [place] [id number] Pcp:Jerman Hmailton MD Subjective: * Chief Complaints: * 1 . Follow-up. 2. Depression screening negative. * HPI: D epression Screening: REMY-7 (2018 Edition) F eeling nervous, anxious, or on edge N ot at all N ot being able to stop or control worrying?Several days W orrying too much about different things S everal days T rouble relaxing S everal days B eing so restless that it is hard to sit still N ot at all B ecoming easily annoyed or irritable N ot at all F eeling afraid as if something awful might happen S everal days T otal REMY-7 Score 4 I f you checked any problems, how difficult have they made it for you to do your work, take care of things at home, or get along with other people? S omewhat difficult I nterpretation of Total ( 0 to 4) No Anxiety C [place]-Suicide Severity Rating Scale: Suicide Risk (CSRS-screener) i n the past one month Have you wished you were or wished you could go to sleep and not wake up? N o i n the past one month Have you actually had any thoughts of killing yourself? N o H ave you ever done anything, started to do anything, or prepared to do anything to end your life? Y es D epression screening: PHQ-9 L ittle interest or pleasure in doing things?Not at all F eeling down, depressed, or hopeless N ot at all T rouble falling or staying asleep, or sleeping too much N ot at all F eeling tired or having little energy N ot at all P oor appetite or overeating N ot at all F eeling bad about yourself or that you are a failure, or have let yourself or your family down N ot at all T rouble concentrating on things, such as reading the newspaper or watching television N ot at all M oving or speaking so slowly that other people could have noticed; or the opposite, being so fidgety or restless that you have been moving around a lot more than usual N ot at all T houghts that you would be better off or of hurting yourself in some way N ot at all T otal Score 0 I nterpretation M inimal Depression Intervention D epression Screening Findings N egative S uicide Risk Assessment Performed _ * ROS: P erformance Met: N ormal blood pressure reading documented, follow-up not required ( G8783). * Medical History: P roblems: Atrial fibrillation, Bipolar disorder, Generalized anxiety disorder, History of alcoholism, Primary insomnia, ,. * Social History: T obacco Use: T obacco Control (Standard) T obacco use: F ormer smoker H ow long has it been since you last smoked??5-10 years M igrated Social History: M igrated Social [...] Do you have a medical power of attorney law clerk?: No Other Education: 12 Family history of heart disease?: Yes (Notes: father, mother and grand parents) High blood pressure: Yes High Cholesterol: Yes Past steroid/HgH use?: No Gender Identity and LGBTQ Identity Gender identity: Identifies as Male Assigned sex at : Male Sexual orientation: Straight or heterosexualborn and rasied in [facility], i move to [place] in 1991 we moved to [place] as my brother's son live in [place], 3 time, seperated now 2009, divorce got screwed up,. * Medications: T aking Cyanocobalamin 1000 MCG/ML Solution Injection , Taking Entresto 24-26 MG Tablet Oral , Taking TRUEPLUS LANCETS 33 gauge EACH MISCELLANEOUS , Notes to Pharmacist: *Reorder from [facility] for eRx and Interaction Alerts*, Taking Metoprolol Succinate ER 50 MG Tablet Extended Release 24 Hour Oral , Taking Pantoprazole Sodium 40 MG Tablet Delayed Release Oral , Taking True Metrix Blood Glucose Test Strip In Vitro , Taking Montelukast Sodium 10 MG Tablet Oral , Taking Synjardy XR 5-1,000 mg Tablet Extended Release 24 Hour Oral , Notes to Pharmacist: *Pick strength-form from [facility] for eRX*, Taking Atorvastatin Calcium 20 MG Tablet Oral , Taking Eliquis 5 MG Tablet Oral , Taking Trintellix 20 MG Tablet 1 tablet Oral Once a day , Taking Vraylar 4.5 mg Capsule 1 tablet Oral daily , Taking Mirtazapine 7.5 MG Tablet 1 tablet at bedtime Oral Once a day , Medication List reviewed and reconciled with the patient * Allergies: I cy Hot: Allergy - Onset Date 12/27/2023. Objective: * Vitals: B P:97/68mm Hg, HR:92/min, Wt:193lbs, Wt-k.54 kg, Ht: 73.00 in, Ht-cm: 185.42 cm, BMI:25.46Index, Body Surface Area: 2.12. Assessment: * Assessment: 1. B ipolar I disorder - F31.9 (Primary) 2 . E ncounter for screening for cardiovascular disorders - Z13.6 3 . E ncounter for screening for depression - Z13.31 4 . P rimary insomnia - F51.01 5 . B ipolar disorder, in partial remission, most recent episode depressed - F31.75 6 . G eneralized anxiety disorder - F41.1 Assessment and Plan: 1. Bipolar Disorder - Stable mood, no recent manic or depressive episodes Plan: - Continue Vraylar 4.5 mg daily [...] if concerns arise Plan: * Treatment: 2. B ipolar disorder, in partial remission, most recent episode depressed Refill Vraylar Capsule, 4.5 mg, 1 tablet, Oral, daily, 30 days, 30 Tablet, Refills 3. 3. G eneralized anxiety disorder Refill Trintellix Tablet, 20 MG, 1 tablet, Oral, Once a day, 30 days, 30 Tablet, Refills 3. ? * Procedure Codes: G 8783 NORMAL BP READING DOC F/U NOT RQR, 50004 BEHAV ASSMT W/SCORE & DOCD/STAND INSTRUMENT, G8752 MOST RECENT SYSTOLIC BP < 140MM HG, G8754 MOST RECENT DIASTOLIC BP < 90MM HG * Billing Information: * Visit Code: * Procedure Codes: G8783 NORMAL BP READING DOC F/U NOT RQR. 96529 BEHAV ASSMT W/SCORE & DOCD/STAND INSTRUMENT. G8752 MOST RECENT SYSTOLIC BP < 140MM HG. G8754 MOST RECENT DIASTOLIC BP < 90MM HG. * Electronic signature of Nemesio Monaco on 12/15/2024 at 12:06 PM CDT Sign off status: Pending * Provider: Noelle Monaco Date: 0 12/03/2024 Generated for Joe Khanna/Ezra on: 12/15/2024 12:06 PM CDT History and Physical Notes * HPI (History of Present Illness) Category Sub-Category Detail Notes Category Not es Depression screening PHQ-9 Little inte rest or pleasure in doing things: Not at all Feeling down, depressed, or hopeless: No t at all Trouble falling or staying asleep, or sl eeping too much: Not at all Feeling tired or having little energy: N [...] some way: Not at all Total Score: 0 Interpretation: Minimal Depression Intervention Depression Screening Findings: N egative Suicide Risk Assessment Performed: ____ Depression Screening REMY-7 (2018 Edition) Feelin g nervous, anxious, or on edge: Not at all Not being able to stop or control worryi ng: Several days Worrying too much about different things : Several days Trouble relaxing: Several days Being so restless that it is hard to sit still: Not at all Becoming easily annoyed or irritable: No t at all Feeling afraid as if something awful ramiro ht happen: Several days Total REMY-7 Score: 4 If you checked any problems, how difficult have they made it for you to do your work, take care of things at home, or get along with other people?: Somewhat difficult Interpretation of Total: (0 to 4) No Anx iety [place]-Suicide Severity Rating Scale Suicide Risk (CSRS-screener) in the past one month Have you wished you were or wished you could go to sleep and not wake up?: No in the past one month Have y ou actually had any thoughts of killing yourself?: No Have you ever done anything, started to do anything, or prepared to do anything to end your life?: Yes
[2024-12-15 14:42] LABS: Hemoglobin A1C 5.6 % (<5.7)
== END 2024-12-15 10:19 | disposition home or self-care (01) ==
PROVIDERS: PCP Internal Medicine; Visit Provider Internal Medicine
DX: N18.9 Chronic kidney disease, unspecified (principal); Z79.899 Other long term (current) drug therapy; E78.5 Hyperlipidemia, unspecified; E11.42 Type 2 diabetes mellitus with diabetic polyneuropathy
CPT/HCPCS: 36415; 80053; 80061; 83036; 85025

== ENCOUNTER 2025-03-03 09:48 | Outpatient (CLI) | payer MEDICARE, SELFPAY ==
--- OUTSIDE RECORDS SUMMARY | 2025-03-03 10:56 | XMS_ITS | Clinical Summary ---
Author Organization [facility] Address [address] [place] [address] Care Team Providers Care Tape Recording Machine Operator Name Role Phone Jerman Hamilton MD Primary Care Provider [phone] Source Comments [facility],non-owned Affiliates and Associated Physician Practices is amultiple site organization consisting of ambulatory clinics and hospital sitesin [place], [place], [place] and [place]. This disclosure is being madepursuant to the Care Everywhere program and may not contain all information available regarding this patient. Last updated 18.[facility] Allergies Active Allergy Reactions Criticality Noted Date Comments Icy Hot Medicated 12/03/2011 Nsaids 06/19/2010 Pt has had a gastric bypass in 2008. Prone to bleeding ulcers no NSAIDS allowed. Medications * This document contains information received from the source organization and may not represent a complete record from that organization. * Be aware that medications may not be up to date on this document. Alwaysverify current medications with the patient. cyanocobalamin , vitamin B-12, injection Inject 1,000 mcg into muscle every 30 days. 1 mL 11 0 Active multivitamin daily (THERAGRAN) tablet Take 1 [...] 10 mg by mouth once daily Active empaglifozin-m etFORMIN (SYNJARDY) 5-1000 MG tablet Take 1 tablet [...] different from the original. EP--Dr. Hal Wong Carbonating Stone Cleaner - Dr. Thuan Hart Problem Noted Date Diagnosed Date LBBB (left bundle branch block) 08/03/2015 Paroxysmal atrial fibrillation 08/03/2015 Essential hypertension, benign 08/03/2015 Pure hypercholesterolemia 08/03/2015 Non morbid obesity due to excess calories 2014 Dietary counseling 08/03/2015 Bi-V Defibrillator 06/22/2012 Overview (03/07/2016): [employer] BiV ICD - 3357-40C IOS SOFTWARE ENGINEER-D Corona Zhou SN: [id number] - Implanted 03/07/[address] Hal Wong RA: MEDT [id number] SN: [id number] (Implanted 07/19/2010) RV: MEDT 6947 SN: [id number] (Implanted 07/19/2010) LV: MEDT [id number] SN: [id number] (Implanted 02/06/2012) Ventricular tachycardia 01/10/2012 Overview (01/10/2012): [...] (02/14/2015): Bipolar 2 disorder 06/16/2010 1 Immunizations Immunization Administration Dates Next Due INFLUENZA VACCINE, QUADR. 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 file Not on file Last Filed Vital Signs Vital Sign Reading Time Taken Comments Blood Pressure 114/68 08/16/2020 2:05 PM PHARMACEUTICAL SPECIALTY REPRESENTATIVE Pulse 70 08/16/2020 2:05 PM PHARMACEUTICAL SPECIALTY REPRESENTATIVE Temperature 36.2 C (97.1 F) 03/07/2016 8:29 AM CDT Respiratory Rate 12 08/16/2020 2:05 PM PHARMACEUTICAL SPECIALTY REPRESENTATIVE Oxygen Saturation 97% 03/07/2016 12:00 PM CDT Inhaled Oxygen Concentration - - Weight 73 kg (161 lb) 08/16/2020 2:05 PM PHARMACEUTICAL SPECIALTY REPRESENTATIVE Height 185.4 cm (6' 1) 08/16/2020 2:05 PM PHARMACEUTICAL SPECIALTY REPRESENTATIVE Body Mass Index 21.24 08/16/2020 2:05 PM PHARMACEUTICAL SPECIALTY REPRESENTATIVE Plan of Treatment Health Maintenance Due Date [...] - 2023-2 5 season) 2024 INFLUENZA VACCINE (Season Ended) 2025 07/06/20 20 HIV SCREENING Completed 07/22/2010 HIB VACCINE Aged [...] this topic Medical Devices Implanted Type Area Process Manager Device Identifier Shelf Expiration Date Model / Serial / Lot Alloquent Corticocanc S 8.0mm Implanted:Qty: 1 on 03/11/2013 by Roberto Jaime MD at [facility] N/A: Spine Cervical [facility] 04/24/2015 [id number] / / [id number] Alloquent Corticocanc S 8.0mm Implanted:Qty: 1 on 03/11/2013 by Roberto Jaime MD at [facility] N/A: Spine Cervical [facility] 05/29/2015 [id number] / / [id number] 37mm Luxe Acp Implanted:Qty: 1 on 03/11/2013 by Roberto Jaime MD at [facility] Spine Cervical [employer] [id number] / / Description:Implanted from s terile tray. 14mm Fixed Screws Implanted:Qty: 6 on 03/11/2013 by Roberto Jaime MD at [facility] Spine Cervical [employer] [id number] / / Description:Implanted from s terile tray. Procedures Procedure Name Priority Date/Time Associated Diagnosis Comments HIV-1 HIV-2 ANTIBODY RAPID AM Draw 07/22/2010 3:35 AM CDT from Last 3 Months or Most Recently Relevant to Health Maintenance Results * HIV-1 HIV-2 ANTIBODY RAPID (07/22/2010 3:35 AM CDT) HIV-1/HIV-2 Rapid Antibody Negative [facility] BLOOD SPECIMEN / Unknown 07/22/2010 3:35 AM CDT 07/22/2010 4:20 AM CDT Shane Reyna MD LAB - CHEMISTRY ORDERABLES Final Result [facility] [address] [place] [address] from Last 3 Months or Most Recently Relevant to Health Maintenance Insurance [address] [place] [address] MEDICAID - [facility] MANAGED MEDICARE ADV [facility] MANAGED MEDICARE ADV SELF PAY NO INSURANCE Member Subscriber Plan / Payer (Ef fective for All Dates) Name:Jamie Garcia Member ID:Not on file Relation to Subscriber:Self Name:Jamie Garcia Subscriber ID:Not on file Payer ID:Not on file Group ID:Not on file Type:Self Pay Address: [place], [place] Advance Directives Documents on File Type Date Recorded 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
--- OUTSIDE RECORDS SUMMARY | 2025-03-03 10:56 | XMS_ITS | Clinical Summary ---
Author Organization [facility] Address [address], [place] [address] Phone Care Team Providers Care License Inspector Name Role Phone Jerman Hamilton MD Primary Care Provider [phone] Allergies Active Allergy Reactions Criticality Noted Date Comments Icy Hot 12/03/2011 Nsaids 06/19/2010 Other reaction(s): Unknown Pt has had a gastric bypass in 2008. Prone to bleeding ulcers no NSAIDS allowed. Medications Eliquis 5 MG tablet 1 Active ascorbic acid (VITAMIN C) 500 MG tablet Take 500 mg by mouth daily Active atorvastatin (LIPITOR) 20 MG tablet 1 Active B Complex-C (B complex-vitamin C) tablet Take 1 tablet by mouth daily Active Vraylar 4.5 MG capsule 1 Active cyanocobalamin (VITAMIN B-12) 1000 MCG/ML injection ADMINISTER 1 ML UNDER THE SKIN MONTHLY 1 Active Synjardy XR 5-1000 MG tablet sustained-relea se 24 hour 1 Active ferrous sulfate 324 MG tablet delayed-release Take 324 mg by mouth 2 times daily Active gabapentin (NEURONTIN) 300 MG capsule Take 300 mg by mouth 3 (three) times a day 1 Active metoprolol succinate XL (TOPROL-XL) 50 MG 24 hr tablet 1 Active montelukast (SINGULAIR) 10 MG tablet 1 Active pantoprazole (PROTONIX) 40 MG EC tablet 1 Active Trintellix 20 MG tablet 1 Active Probiotic Product (PROBIOTIC ADVANCED PO) Take 1 capsule by mouth daily Active Calcium Carb-Cholecalci ferol (Calcium Carbonate-Vitam in D3) 600-400 MG-UNIT tablet Take by mouth A ctive Multiple Vitamin (MULTIVITAMINS PO) Take by mouth Active Entresto 24-26 MG per tablet Take 1 tablet by mouth in the morning and 1 tablet before bedtime. 2 Active Active Problems Problem Noted Date Diagnosed Date Diabetes mellitus without me ntion of complication, type II or unspecified type, not stated as uncontrolled 08/31/2021 Benign essential hypertension 08/03/2015 Pure hypercholesterolemia 08/03/2015 Paroxysmal atrial fibrillation 01/22/2013 Orthostatic hypotension 09/17/2012 Dilated cardiomyopathy 10/07/2010 Stricture of esophagus 06/16/2010 Bipolar disorder 01/03/2009 Immunizations Immunization Administration Dates Next Due Influenza TIV (IM) [...] Assigned at Male 01/24/2022 10:16 AM MDT Legal Sex Male 8:08 AM MDT Gender Identity Male 01/24/2022 10:16 [...] 11:30 AM CDT Height 185.4 cm (6' 1) 07/25/2022 11:30 AM CDT Body Mass Index 23.09 07/25/2022 11:30 AM CDT Plan of Treatment Health Maintenance Due Date Last Done Comments Influenza Vaccine (Season Ended) 2025 06/20/2022, 07/07/2021, 07/06/2020 Insurance [employer] MEDICARE ADVANTAGE Care Teams License Inspector Relationship Specialty Start Date End Date Jerman Hamilton MD [address] [place] [address] PCP - General Internal Medicine 06/07/21
--- OUTSIDE RECORDS SUMMARY | 2025-03-03 10:56 | XMS_ITS | Data Portability ---
Author Organization [facility] [employer], Main Office Address [address] [place] [address] Care Team Providers Care Rn Er Name Role Phone TABBY LEE Primary Care Provider TABBY LEE Referring Provider Assessment Encounter Date Assessment Date Assessment LastModified by Organization Details LastModified Time 02/13/2024 02/13/2024 This note is dictated and transcribed by [employer]. Customer Care Manager variances may occur. Despite proofreading, typographical errors may occur. Occasional wrong-word or 'jfcug-g-othl' substitutions may have occurred due to the inherent limitations of voice recording. Read the chart carefully and recognize, using context, where substitutions have occurred. Not available 02/13/2024 16:02:08 10/01/2024 10/01/2024 This note is dictated and transcribed by [employer]. Customer Care Manager variances may occur. Despite proofreading, typographical errors may occur. Occasional wrong-word or 'sbppx-o-kxoc' substitutions may have occurred due to the inherent limitations of voice recording. Read the chart carefully and recognize, using context, where substitutions have occurred. Not available 10/01/2024 14:50:24 12/31/2024 12/31/2024 This note is dictated and transcribed by [employer]. Customer Care Manager variances may occur. Despite proofreading, typographical errors may occur. Occasional wrong-word or 'shyef-o-pmhy' substitutions may have occurred due to the inherent limitations of voice recording. Read the chart carefully and recognize, using context, where substitutions have occurred. Not available 12/31/2024 11:06:37 Plan of Treatment Reminders Order Date Submit Date Provider Last Modified By Organization Details Last Modified Time Details Appointments Establish ed Patient 15 2024 10:30A M Theron Bernstein DPM Not available Not available Not available Lab None recorded. Referral None recorded. Procedures None recorded. Surgeries None recorded. Imaging None recorded. Medication Orders None recorded. Patient TargetsNo targets recorded. Patient Instructions Encounter Date Encounter Id Patient Instructions Last Modified By Organization Details Last Modified Time 02/13/2024 [id number] diabetic diet Not available 02/13/2024 16:03:04 diabetic foot care education Not available 02/13/2024 16:03:04 Reason for Referral None Reported. Problems Name Problem SNOMED Code Status Onset Date Resolution Date Notes Provider Name and Address Organization Details Recorded Time Diabetic on diet only 441441236 Active 024 Theron Bernstein DPM [address], [address], [place], [address], [employer] 16:02:27 Dystrophia unguium 84874641 Active 024 Theron Bernstein DPM [address], [address], [place], [address], [employer] 16:02:36 Problem Notes None recorded. Procedures Surgical History Date Name Laterality Status Provider Name and Address Organization Details Recorded Time 5 Nail Debridement completed Theron Bernstein DPM [address], [address], [place], [address], [employer] 12/31/2024 11:36:59 4 Nail Debridement completed Theron Bernstein DPM [address], [address], [place], [address], [employer] 02/13/2024 16:02:03 bariatric operative procedure completed Iqra [employer] 02/13/2024 15:40:54 Back Surgeries completed Iqra Briseno [employer] 02/13/2024 15:41:01 Neck Surgeries completed Iqra [employer] 02/13/2024 15:41:08 Pacemaker completed Iqra [employer] 02/13/2024 15:41:20 Foot Surgery completed [employer] 02/13/2024 15:41:32 Imaging Results None recorded. Procedure Notes None recorded. Medical Equipment None Reported. Allergies Allergen ID Allergen Name Allergen Category Reaction Reaction Severity Criticality Documentation Date Start Date Code Code System Note Provider Name and Address Organization Details Recorded Time 45157 menthol / methyl salicylat e medicatio n Not available Not available Not available 02/13/2024 38362 7 RxNorm Iqra clark [facility] [employer] [facility] 15:39:27 Medications Name Sig Start Date Stop [...] mg tablet TAKE 1 TABLET BY MOUTH ONCE A DAY AT BEDTIME active Not Available Not Available [...] TAKE 1 TABLET BY MOUTH EVERY DAY FOR 90 DAYS active Not Available Not Available No t Available Synjardy XR 5 mg-1,000 mg tablet, extended release TAKE 1 TABLET BY MOUTH EVERY DAY active Not Available Not Available No t Available Vitals Date Recorded Body height Body mass index (BMI) Body weight Heart rate Respiratory rate Oxygen saturation Oxygen saturation in Arterial blood by Pulse oximetry Systolic blood pressure Diastolic blood pressure Provider Name and Address Organization Details Last Updated DateTime 5 187.96 cm 23.1 kg/m2 84307.6 3 g 87 /min 14 /min 99 % 99 % 141 mm[Hg] 87 mm[Hg] Iqra Briseno [facility] [employer] 5 14:18:13 Date Recorded Body height Body mass index (BMI) Body weight Heart rate Respiratory rate Oxygen saturation Oxygen saturation in Arterial blood by Pulse oximetry Systolic blood pressure Diastolic blood pressure Provider Name and Address Organization Details Last Updated DateTime 5 187.96 cm 23.1 kg/m2 39924.6 3 g 100 /min 14 /min 98 % 98 % 140 mm[Hg] 90 mm[Hg] Iqra Briseno [facility] [employer] 5 10:51:04 Date Recorded Heart rate Respiratory rate Oxygen saturation Oxygen saturation in Arterial blood by Pulse oximetry Body height Body mass index (BMI) Body weight Systolic blood pressure Diastolic blood pressure Provider Name and Address Organization Details Last Updated DateTime 4 103 /min 14 /min 98 % 98 % 187.96 cm 23.1 kg/m2 08154.6 3 g 112 mm[Hg] 77 mm[Hg] Iqra Briseno [facility] [employer] 4 15:00:34 Social History Question Answer Notes LastModified by Organizat ion Details LastModified Time Tobacco Smoking Status Former Smoker Iqra clark [facility] [employer] [facility] 02/13/2024 15:40:46 What Is Your Level Of Caffeine Consumption? Occasional Information not available 02/13/2024 What Was The Date Of Your Most Recent Tobacco Screening? 02/13/2024 Information not available 02/13/2024 Has Tobacco Cessation Counseling Been Provided? No Information not available 02/13/2024 Sex: Unknown Functional Status Question Answer Note LastModified by Organizat ion Details LastModified Time Do you use any illicit or recreational drugs? No Information not available 02/13/2024 Do you or have you ever used any other forms of tobacco or nicotine? No Information not available 02/13/2024 What is your level of alcohol consumption? None Information not available 02/13/2024 Mental Status None recorded. Family History Relationship [...] available 01/22 15:40:22 Medical History Condition Response ALLERGIES/HAYFEVER Y HIGH CHOLESTEROL / HYPERLIPIDEMIA Y BACK / NECK PROBLEMS Y DEPRESSION (INCLUDING POST ) Y OBESITY Y OSTEOPOROSIS Y ARTHRITIS Y USE OF BLOOD THINNERS Y DIABETES, TYPE Y HEARTBURN / REFLUX Y USE OF NSAIDS Y HEART DISEASE/HEART PROBLEMS Y KIDNEY DISEASE Y CARDIAC ARRHYTHMIA Y ANXIETY DISORDER Y ANEMIA/BLOOD DISORDER Y Past Encounters Encounter ID Performer Location Encounter Start Date Encounter Closed Date Diagnosis/Indication Diagnosis SNOMED-CT Code Diagnosis ICD10 Code Diagnosis Note [id number] Theron Bernstein DPM [facility] Pod[facility] [place]ran [address] [place] [address] 02/13/2024 14:54:01 02/14/2024 10:41:33 Diabetic on diet only 723556876 E11.9 continue diabetic control per PCP recommenda tionsCheck feet daily for wounds infections if present seek medical attention immediatel yWear supportive shoe gear dailyFollo w-up in 6 months Dystrophia unguium 52833 009 L60.3 Nails 1 through 10 were debrided with sharp mechanical debridemen t without incident. Nails were debrided and greater than 50% length and thickness where needed. [id number] Theron Bernstein DPM [facility] Podiatry [place] [address] [address] [place] [address] 10/01/2024 14:12:29 10/07/2024 08:50:15 Diabetic on diet only 436115060 E11.9 continue diabetic control per PCP recommenda tionsCheck feet daily for wounds infections if present seek medical attention immediatel yWear supportive shoe gear dailyFollo w-up in 3 months Dystrophia unguium 17067 009 L60.3 Nails 1 through 10 were debrided with sharp mechanical debridemen t without incident. Nails were debrided and greater than 50% length and thickness where needed. [id number] Theron Bernstein DPM [facility] Podiatry [place] [address] [place] [address] 12/31/2024 10:46:00 01/04/2025 12:56:27 Diabetic on diet only 972308720 E11.9 continue diabetic control per PCP recommenda tionsCheck feet daily for wounds infections if present seek medical attention immediatel yWear supportive shoe gear dailyFollo w-up in 3 months Dystrophia unguium 53077 009 L60.3 Nails 1 through 10 were [...] Diehl Member ID Guarantor Name 02/13/2024 1 [facility] (MEDICARE REPLACEMENT/A DVANTAGE - PPO) [id number] Jamie Garcia [id number] Jamie Garcia 10/01/2024 1 [facility] (MEDICARE REPLACEMENT/A DVANTAGE - PPO) [id number] Jamie Garcia [id number] Jamie Garcia 12/31/2024 1 [facility] (MEDICARE REPLACEMENT/A DVANTAGE - PPO) [id number] Jamie Garcia [id number] Jamie Garcia Notes Date Note Type Note [...] the feet. Patient states he is avid benefit specialist daily. Patient states that he has no intermittent claudication walking or rest pain. Patient denies any other complaints. Theron Bernstein DPM [address], [place], [address], [employer] 02/13/2024 16:03:39 10/01/2024 text/html . Patient is [...] other complaints. Theron Bernstein DPM [address], [place], [address], [employer] 10/01/2024 14:50:56 12/31/2024 text/html . Patient is a 54-year-old male diabetic history of smoking. patient states overall he is doing well he denies any open wounds or injury. Patient states that he does want his nails cut as he has difficulty cutting them he states he is started routine exercising for 20 minutes on a stationary bike states that he has lost approximately 10 lb he states that he is not having any difficulties with walking or cramping while exercising. Patient denies any other complaints. Theron Bernstein DPM [address], [address], [place], [address], [employer] 12/31/2024 11:37:17
--- OUTSIDE RECORDS SUMMARY | 2025-03-03 10:56 | XMS_ITS | Encounter Summary ---
Author Organization [facility] Address [address] [place] [address] Care Team Providers Care Semiautomatic Taper Operator Name Role Phone Ahmet Mejía MD Primary Care Provider Vince Hermosillo DO Unavailable Vince Hermosillo DO Primary Care Provider [phone] Vince Hermosillo DO Primary Care Provider Pcp, Unknown Primary Care Provider Unavailsimona e Ragini Ayala MD Primary Care Provider Wenceslao Kohli DO Primary Care Provider Jerman Hamilton MD Primary Care Provider Encounter Details Date Type Department Care Team (Late st Contact Info) Description 12/15/2010 [facility] Outpatient Visit [facility] Medical [facility] - Family Medicine [address] [place] [place] [id number] Ahmet Mejía MD [address] [place] [address] Social History Tobacco Use Types Packs/Day Years Used Date Smoking Tobacco: Never Smokeless Tobacco: Never Alcohol Use Standard Drinks/Week Comments No 0 (1 standard drink = 0.6 oz pur e alcohol) rarely Sex and Gender Information Value Date Recorded Sex Assigned at Not on file 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 Gender Identity Not on file Sexual Orientation Not on file 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 file Not on file documented as of this encounter Plan of Treatment Not on file documented as of this encounter Visit Diagnoses Not on filedocumented in this encounter Care Teams Semiautomatic Taper Operator Relationship Specialty Start Date End Date Ahmet Mejía MD [address] [place] [address] PCP - General 07/15/10 04/16/11 Vince Hermosillo, DO [address] [place] [address] PCP - General 01/08/12 03/10/13 Vince Hermosillo, DO [address] [place] [address] PCP - General Family Medicine 03/11/13 11/16/13 Pcp, Unknown [place] [address] PCP - General 11/17/13 Ragini Ayala MD [place] [address] PCP - General Internal Medicine 04/13/14 02/19/18 Wenceslao Kohli, DO [place] [address] PCP - General Emergency Medicine 02/20/18 03/17/20 Jerman Hamilton MD [address] [address] PCP - General Internal Medicine 03/18/20 Vince Hermosillo, DO [address] [place] [address] Family Medicine 09/27/11 02/19/18 documented as of this encounter
--- OUTSIDE RECORDS SUMMARY | 2025-03-03 10:57 | XMS_ITS | Patient Health Record ---
Author Organization [facility] [employer] [facility] Address [address] [place] [address] Care Team Providers Care Addictions Recovery Specialist Name Role Phone Alfonso ALSTON, Jerman Primary Care Provider Unavailab Ramona Jean Baptiste Unavailable [phone] Yaneli Valerio Unavailable [phone] Allergies Allergen (clinical drug ingredient) Drug/Non Drug Allergy documented on EMR Reaction Allergy Type Onset Date Status menthol Icy Hot Unknown Drug Allergy 12/27/2023 Active Reason For Referral No Information Medications Medication SIG (Take, Route, Frequency, Duration) Notes Start Date End Date Status Trintellix 20 MG 1 tablet Oral Once a day for 30 days Active True Metrix Blood Glucose Test In Vitro 12/27/2023 Active Pantoprazole Sodium 40 MG Oral 12/27/2023 Active Metoprolol Succinate ER 50 MG Oral 12/27/2023 Active TRUEPLUS LANCETS 33 gauge MISCELLANEOUS *Reorder from [employer] for eRx and Interaction Alerts* 12/27/2023 Active Atorvastatin Calcium 20 MG Oral 12/27/2023 Active Mirtazapine 7.5 MG 1 tablet at bedtime Oral Once a day for 30 days Active Synjardy XR 5-1,000 mg Oral *Pick strength-form from [employer] for eRX* 12/27/2023 Active Vraylar 4.5 mg 1 tablet Oral daily for 30 days Active Montelukast Sodium 10 MG Oral 12/27/2023 Active Entresto 24-26 MG Oral 12/27/2023 A ctive Cyanocobalamin 1000 MCG/ML Injection 12/27/2023 Active Eliquis 5 MG Oral 12/27/2023 Active Immunizations Vaccine Route Administration Date Status Comme nts Influenza virus vaccine, quadrivalent (IIV4), split virus, 0.25 mL dosage Unknown 07/12/2019 Administered Novel [id number], preservative free Unknown 07/06/2020 Administered Pfizer Biontech Covid-19 Vac cine 2nd dose Unknown 11/17/2020 Administered Pfizer Biontech Covid-19 Vac cine 2nd dose Unknown 12/09/2020 Administered Pfizer B[employer]tech Covid-19 Vac cine 2nd dose Unknown 07/08/2021 Administered Pneumococcal polysaccharide PPV23 Unknown 07/07/2020 Ad ministered Zoster Unknown 07/07/2020 Administered Social History Tobacco Use: Social History Observation [...] Do you have a medical power of medical examiner?: No Other Education: 12 Family history of heart disease?: Yes (Notes: father, mother and grand parents) High blood pressure: Yes High Cholesterol: Yes Past steroid/HgH use?: No Gender Identity and LGBTQ Identity Gender identity: Identifies as Male Assigned sex at : Male Sexual orientation: Straight or heterosexualborn and rasied in [facility], i move to [place] in 1991 we moved to [place] as my brother's son live in [place], 3 time, seperated now 2009, divorce got screwed up, Substance Use Do you or have you [...] Do you have a medical power of medical examiner?: No Other Education: 12 Family history of heart disease?: Yes (Notes: father, mother and grand parents) High blood pressure: Yes High Cholesterol: Yes Past steroid/HgH use?: No Gender Identity and LGBTQ Identity Gender identity: Identifies as Male Assigned sex at : Male Sexual orientation: Straight or heterosexualborn and rasied in [facility], i move to [place] in 1991 we moved to [place] as my brother's son live in [place], 3 time, seperated now 2009, divorce got screwed up, Substance Use Do you or have you [...] Do you have a medical power of medical examiner?: No Other Education: 12 Family history of heart disease?: Yes (Notes: father, mother and grand parents) High blood pressure: Yes High Cholesterol: Yes Past steroid/HgH use?: No Gender Identity and LGBTQ Identity Gender identity: Identifies as Male Assigned sex at : Male Sexual orientation: Straight or heterosexualborn and rasied in [facility], i move to [place] in 1991 we moved to [place] as my brother's son live in [place], 3 time, seperated now 2009, divorce got screwed up, Problems Problem Type SNOMED Code ICD Code Onset Dates Problem Status W/U Status Risk Notes Problem Depressed bipolar I disorder in remission (37724093) Bipolar disorder, in partial remission, most recent episode depressed (F31.75) Active confirmed Problem Generalized anxiety disorder (96442602) Generalized anxiety disorder (F41.1) 4 Active confirmed Problem Primary insomnia (5831082) Primary insomnia (F51.01) 4 Active confirmed Problem Atrial fibrillation (66945356) Unspecified atrial fibrillation (I48.91) 4 Active confirmed Problem Nondependent alcohol abuse in remission (177925695) History of alcohol abuse (F10.11) Active confirmed Vital Signs Heart Rate 92 /min 12/03/2024 Height-cm 185.42 cm 12/03/2024 Blood pressure diastolic 68 mm Hg 12/03/2024 Weight-kg 87.54 kg 12/03/2024 Height 73.00 in 12/03/2024 Blood pressure systolic 97 mm Hg 12/03/2024 Weight 193 lbs 12/03/2024 BMI 25.46 kg/m2 12/03/2024 Encounters Encounter Location Date Provider Diagnosis [place] [place] [address] [facility] [address] [address] 05/05/2024 Yaneli Valerio Bipolar I disorder F31.9 ; Primary insomnia F51.01 ; Generalized anxiety disorder F41.1 and History of alcohol abuse F10.11 [employer] [facility] [address] [facility] [address] [address] 09/04/2024 Ramona Jacinda Bipolar I disorder F31.9 ; Primary insomnia F51.01 and Generalized anxiety disorder F41.1 [facility] [place] [address] [facility] [address] [place] [address] 12/03/2024 Ramonamee Morfinmeliza Generalized anxiety disorder F41.1 ; Bipolar disorder, in partial remission, most recent episode depressed F31.75 ; Primary insomnia F51.01 ; Encounter for screening for cardiovascular disorders Z13.6 and Encounter for screening for depression Z13.31 [facility] [employer] [place] [address] [place] [address] 02/17/2025 Ramonamee Monaco [facility] [employer] [place] [address] [place] [address] 02/28/2025 Ramonamee Monaco [facility] [employer] [place] [address] [facility] [address] [place] [address] 03/01/2025 Ramona Shelbiemeliza Assessments Encounter Date Diagnosis (ICD Code) Assessment [...] as 90 day) practice good sleep hygiene 12/03/2024 Bipolar disorder, in partial remission, most recent episode depressed (ICD-10 - F31.75) 12/03/2024 Generalized anxiety disorder (ICD-10 - F41.1) 09/04/2024 Primary insomnia (ICD-10 - F51.01) Assessment [...] medication management. Sooner if concerns arise 09/04/2024 Bipolar I disorder (ICD-10 - F31.9) [...] and medication management. Sooner if concerns arise 05/05/2024 Generalized anxiety disorder (ICD-10 - F41.1) minimal, trintellix, mirtazapine 12/03/2024 Primary insomnia (ICD-10 - F51.01) 09/04/2024 Generalized anxiety disorder (ICD-10 - F41.1) [...] and medication management. Sooner if concerns arise 05/05/2024 History of alcohol abuse (ICD-10 - F10.11) sober 3 years, no drug use since ctive in AA 12/03/2024 Encounter for screening for cardiovascular disorders (ICD-10 - Z13.6) 12/03/2024 Encounter for screening for depression (ICD-10 - Z13.31) 05/05/2024 Other past records 12/03/2024 Other Christine Garcia, an adult male patient with a history of mood disorder and anxiety, presents for medication management follow-up reporting stable mood and anxiety. Mood DisorderAssessm ent: Patient reports stable mood with current medication regimen. No significant changes in mood or concerning symptoms reported since last visit. Patient mentions a slight increase in spending last month but attributes it to special occasions and planned events. Overall, the patient appears to be managing well with current treatment.Plan: - Continue Trintellix 20 mg PO daily- Continue Vraylar 4.5 mg PO daily - Continue mirtazapine 15 mg daily at bedtime- Adjust prescription to 30-day supply for all medications due to insurance requirements- Follow up in 4 months- Patient instructed to call if any concerns arise before next appointment AnxietyAssessme nt: Patient reports anxiety is well-controlled with current treatment. He acknowledges some worry, which he considers normal and manageable. Patient is using healthy coping mechanisms, including involvement with [employer] activities and regular exercise at the gym.Plan:- Continue current medication regimen (as listed above)- Encourage continuation of current coping strategies, including [employer] involvement and regular exercise Plan Of Treatment Next Appt Details Provider Name:Ramona nance, 04/06/2025 08:30:00 AM, [address], [address], [place], [address], Insurance Providers Payer Name Payer Address Payer Phone Subscriber Number Group Number Insured Name Patient Relationship to Insured Coverage Start Date Coverage End Date [employer] Medicare Replacement/ [employer] - Ppo [address] [address] [place] [address] [id number] CHRISTINE GARCIA Self - patient is the insured Medical (General) History Medical History History ICD Code Problems: Atrial fibrillation Bipolar disorder Generalized anxiety disorder History of alcoholism Primary insomnia , Surgical History Surgery Date(Month/Year) Heart surgery Neurosurgery Heart surgery 10/12/2021 Neurosurgery 12/22/2012 Heart surgery 05/24/2010 back stimulator 10/2023
[2025-03-03 11:12] LABS: Albumin Level 4.6 g/dL (3.5-5.1); Anion Gap 9 mmol/L (4-12); Blood Urea Nitrogen 9 mg/dL (9-20); Calcium 10.3 mg/dL (8.4-10.2); Carbon Dioxide 29 mmol/L (22-30); Chloride 104 mmol/L (98-107); Estimated Glomerular Filt Rate > 60; Glucose 97 mg/dL (65-110); Phosphorus 2.9 mg/dL (2.5-4.5); Sodium 142 mmol/L (137-145)
== END 2025-03-03 09:49 | disposition home or self-care (01) ==
LOC: ANHLAB 09:49
PROVIDERS: PCP Internal Medicine; Visit Provider Internal Medicine Nephrology
DX: R80.1 Persistent proteinuria, unspecified (principal)
CPT/HCPCS: 36415; 80069

== ENCOUNTER 2025-03-08 09:07 | Outpatient (CLI) | payer MEDICARE, SELFPAY ==
--- OUTSIDE RECORDS SUMMARY | 2025-03-08 09:33 | XMS_ITS | Clinical Summary ---
Author Organization [facility] Address [address] [place] [address] Care Team Providers Care Human Resources Benefits Administrator Name Role Phone Jerman Hamilton MD Primary Care Provider [phone] Source Comments [facility],non-owned Affiliates and Associated Physician Practices is amultiple site organization consisting of ambulatory clinics and hospital sitesin [place], [place], [place] and [place]. This disclosure is being madepursuant to the Care Everywhere program and may not contain all information available regarding this patient. Last updated 18.[facility] Allergies Active Allergy Reactions Criticality Noted Date [...] different from the original. EP--Dr. Hal Wong Housing Counselor - Dr. Thuan Hart Problem Noted Date Diagnosed Date LBBB (left bundle branch block) 08/03/2015 Paroxysmal atrial fibrillation 08/03/2015 Essential hypertension, benign 08/03/2015 Pure hypercholesterolemia 08/03/2015 Non morbid obesity due to excess calories 2014 Dietary counseling 08/03/2015 Bi-V Defibrillator 06/22/2012 Overview (03/07/2016): [facility] BiV ICD - 3357-40C SQUEEGEE OPERATOR-D Corona Zhou SN: [id number] - Implanted 03/07/[address] 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 file Not on file Last Filed Vital Signs Vital Sign Reading Time Taken Comments Blood Pressure 114/68 08/16/2020 2:05 PM MATE FOURTH Pulse 70 08/16/2020 2:05 PM MATE FOURTH Temperature 36.2 C (97.1 F) 03/07/2016 8:29 AM CDT Respiratory Rate 12 08/16/2020 2:05 PM MATE FOURTH Oxygen Saturation 97% 03/07/2016 12:00 PM CDT Inhaled Oxygen Concentration - - Weight 73 kg (161 lb) 08/16/2020 2:05 PM MATE FOURTH Height 185.4 cm (6' 1) 08/16/2020 2:05 PM MATE FOURTH Body Mass Index 21.24 08/16/2020 2:05 PM MATE FOURTH Plan of Treatment Health Maintenance Due Date [...] this topic Medical Devices Implanted Type Area Engineering Design Supervisor Device Identifier Shelf Expiration Date Model / Serial / Lot Alloquent Corticocanc S 8.0mm Implanted:Qty: 1 on 03/11/2013 by Roberto Jaime MD at [facility] N/A: Spine Cervical [facility] 04/24/2015 30-5008 / / [id number] Alloquent Corticocanc S 8.0mm Implanted:Qty: 1 on 03/11/2013 by Roberto Jaime MD at [facility] N/A: Spine Cervical [facility] 05/29/2015 [id number] / / [id number] 37mm Luxe Acp Implanted:Qty: 1 on 03/11/2013 by Roberto Jaime MD at [facility] Spine Cervical [employer] Spine [id number] / / Description:Implanted from s terile tray. 14mm Fixed Screws Implanted:Qty: 6 on 03/11/2013 by Roberto Jaime MD at [facility] Spine Cervical [employer] Spine [id number] / / Description:Implanted from s terile tray. Procedures Procedure Name Priority Date/Time Associated Diagnosis Comments HIV-1 HIV-2 ANTIBODY RAPID AM Draw 07/22/2010 3:35 AM CDT from Last 3 Months or Most Recently Relevant to Health Maintenance Results * HIV-1 HIV-2 ANTIBODY RAPID (07/22/2010 3:35 AM CDT) HIV-1/HIV-2 Rapid Antibody Negative [facility] BLOOD SPECIMEN / Unknown 07/22/2010 3:35 AM CDT 07/22/2010 4:20 AM CDT Shane Reyna MD LAB - CHEMISTRY ORDERABLES Final Result [facility] [address] [place] [address] from Last 3 Months or Most Recently Relevant to Health Maintenance Insurance [address] [place] [address] MEDICAID - [place] [facility] MANAGED MEDICARE ADV [facility] MANAGED MEDICARE ADV SELF PAY NO INSURANCE Member Subscriber Plan / Payer (Ef fective for All Dates) Name:Jamie Garcia Member ID:Not on file Relation to Subscriber:Self Name:Jamie Garcia Subscriber ID:Not on file Payer ID:Not on file Group ID:Not on file Type:Self Pay Address: [place], [place] Advance Directives Documents on File Type Date Recorded Patient Customer Engagement Specialist Expl anation Adv Directive/Living Will/POA 01/22/2011 1:10 [...] 7:28 PM 02/06/2012 4:05 PM Care Teams Human Resources Benefits Administrator Relationship Specialty Start Date End Date Jerman Hamilton MD [address] [facility] [address] [place] [address] PCP - General Internal Medicine 03/18/20
--- OUTSIDE RECORDS SUMMARY | 2025-03-08 09:33 | XMS_ITS | Encounter Summary ---
Author Organization [facility] Address [address] [place] [address] Care Team Providers Care Egg Trayer Name Role Phone Ahmet Mejía MD Primary Care Provider [phone] Vince Hermosillo DO Unavailable Vince Hermosillo DO Primary Care Provider Vince Hermosillo DO Primary Care Provider Pcp, Unknown Primary Care Provider Unavailsimona e Ragini Ayala MD Primary Care Provider Wenceslao Kohli DO Primary Care Provider Jerman Hamilton MD Primary Care Provider Encounter Details Date Type Department Care Team (Late st Contact Info) Description 12/15/2010 [facility] Outpatient Visit 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 file Not on file documented as of this encounter Plan of Treatment Not on file documented as of this encounter Visit Diagnoses Not on filedocumented in this encounter Care Teams Egg Trayer Relationship Specialty Start Date End Date Ahmet Mejía MD [address] [place] [address] PCP - General 07/15/10 04/16/11 Vince Hermosillo, DO [address] [place] [address] PCP - General 01/08/12 03/10/13 Vince Hermosillo, DO [address] [place] [address] PCP - General Family Medicine 03/11/13 11/16/13 Pcp, Unknown [place] [address] PCP - General 11/17/13 Ragini Ayala MD [place] [address] PCP - General Internal Medicine 04/13/14 02/19/18 Wenceslao Kohli, DO [place] [address] PCP - General Emergency Medicine 02/20/18 03/17/20 Jerman Hamilton MD [address] [address] PCP - General Internal Medicine 03/18/20 Vince Hermosillo, DO [address] [place] [id number] Family Medicine 09/27/11 02/19/18 documented as of this encounter
--- OUTSIDE RECORDS SUMMARY | 2025-03-08 09:33 | XMS_ITS | Clinical Summary ---
Author Organization [facility] Address [address], [place] [address] Phone Care Team Providers Care Nick Setter Name Role Phone Jerman Hamilton MD Primary Care Provider [phone] Allergies Active Allergy Reactions Criticality Noted Date [...] 07/06/2020 Insurance [employer] MEDICARE ADVANTAGE Care Teams Nick Setter Relationship Specialty Start Date End Date Jerman Hamilton MD [address] [place] [address] PCP - General Internal Medicine 06/07/21
[2025-03-08 09:49] LABS: Creatinine Urine 47.4 mg/dL; Total Protein Urine Random 15 mg/dL; Ur Ttl Prot Creatinine Ratio 0.32 mg/mg (0-0.20)
[2025-03-08 09:49] LABS: Anion Gap 9 mmol/L (4-12); Blood Urea Nitrogen 12 mg/dL (9-20); Calcium 10.1 mg/dL (8.4-10.2); Carbon Dioxide 30 mmol/L (22-30); Chloride 103 mmol/L (98-107); Estimated Glomerular Filt Rate > 60; Glucose 93 mg/dL (65-110); Potassium 4.2 mmol/L (3.4-5.0); Sodium 142 mmol/L (137-145)
[2025-03-09 11:28] LABS: Calcium/Creatinine Ratio, Ur 34 mg/g creat (10-240); Urine Calcium, Random 1.6 mg/dL; Urine Creatinine, Random 47 mg/dL (20-320)
[2025-03-09 12:03] LABS: Angiotensin Converting Enzyme 30 U/L (9-67)
[2025-03-10 21:29] LABS: Vitamin A 52 mcg/dL (38-98)
[2025-03-11 16:18] LABS: Vitamin D 1,25 (OH)2 Total 52 pg/mL (18-72); Vitamin D2 1,25 (OH)2 <8 pg/mL; Vitamin D3 1,25 (OH)2 52 pg/mL
== END 2025-03-08 09:08 | disposition home or self-care (01) ==
LOC: ANHLAB 09:08
PROVIDERS: PCP Internal Medicine; Visit Provider Internal Medicine Nephrology
DX: R80.1 Persistent proteinuria, unspecified (principal); E83.52 Hypercalcemia
CPT/HCPCS: 36415; 80048; 82164; 82310; 82570; 82652; 83519; 84156; 84590

== ENCOUNTER 2025-05-06 06:59 | Outpatient (CLI) | payer MEDICARE, SELFPAY ==
--- OUTSIDE RECORDS SUMMARY | 2025-05-06 07:02 | XMS_ITS | Patient Health Record ---
Author Organization [facility] Address [address] [place] [address] Care Team Providers Care Home Coordinator Name Role Phone Alfonso ALSTON, Jerman Primary Care Provider Ramona Zepeda Unavailable [phone] Allergies Allergen (clinical drug ingredient) Drug/Non Drug Allergy documented on EMR Reaction Allergy Type Onset Date Status menthol Icy Hot Unknown Drug Allergy 12/27/2023 Active Reason For Referral No Information Medications Medication SIG (Take, Route, Frequency, Duration) Notes Start Date End Date Status Metoprolol Succinate ER 50 MG Oral 12/27/2023 Active Pantoprazole Sodium 40 MG Oral 12/27/2023 Active True Metrix Blood Glucose Test In Vitro 12/27/2023 Active Montelukast Sodium 10 MG Oral 12/27/2023 Active Mirtazapine 7.5 MG 1 tablet at bedtime Oral Once a day; Duration: 30 days Active TRUEPLUS LANCETS 33 gauge MISCELLANEOUS *Reorder from MD [employer] for eRx and Interaction Alerts* 12/27/2023 Active Trintellix 20 MG 1 tablet Oral Once a day; Duration: 30 days 12/27/2023 Active Cyanocobalamin 1000 MCG/ML Injection 12/27/2023 Active Entresto 24-26 MG Oral 12/27/2023 A ctive Synjardy XR 5-1,000 mg Oral *Pick strength-form from MD [employer] for eRX* 12/27/2023 Active Vraylar 4.5 mg 1 tablet Oral daily; Duration: 30 days decreasing, DC 6 mg thanks Active Atorvastatin Calcium 20 MG Oral 12/27/2023 Active Divalproex Sodium 250 MG 1 capsule every morning, 2 capsules at bedtime Orally see sign; Duration: 30 days 05/05/2025 Active Eliquis 5 MG Oral 12/27/2023 Active Immunizations Vaccine Route Administration Date Status Comme nts Influenza virus vaccine, quadrivalent (IIV4), split virus, 0.25 mL dosage Unknown 07/12/2019 Administered Novel [id number], preservative free Unknown 07/06/2020 Administered Pfizer Biontech [...] History Observation Description Sex Assigned At Male Household Question Answer Notes Marital status: living with significant other Number of adults in household: 2 Number of children in household: 0 Tobacco Control (Standard) Question Answer Notes Tobacco [...] Do you have a medical power of silver service waiter?: No Other Education: 12 Family history of heart disease?: Yes (Notes: father, mother and grand parents) High blood pressure: Yes High Cholesterol: Yes Past steroid/HgH use?: No Gender Identity and LGBTQ Identity Gender identity: Identifies as Male Assigned sex at : Male Sexual orientation: Straight or heterosexualborn and rasied in [place], i move to [place] in 1991 we moved to [place] as my brother's son live in [place], 3 time, seperated now 2009, divorce got screwed up, hx of illicit drug use: Cocaine, Meth, Heroin born and rasied in [place], i move to [place] in 1991 we moved to [place] as my brother's son live in [place], 3 time, seperated now 2009, divorce got [...] Do you have a medical power of silver service waiter?: No Other Education: 12 Family history of heart disease?: Yes (Notes: father, mother and grand parents) High blood pressure: Yes High Cholesterol: Yes Past steroid/HgH use?: No Gender Identity and LGBTQ Identity Gender identity: Identifies as Male Assigned sex at : Male Sexual orientation: Straight or heterosexualborn and rasied in [place], i move to [place] in 1991 we moved to [place] as my brother's son live in [place], 3 time, seperated now 2009, divorce got screwed up, hx of illicit drug use: Cocaine, Meth, Heroin born and rasied in [place], i move to [place] in 1991 we moved to [place] as my brother's son live in [place], 3 time, seperated now 2009, divorce got [...] Do you have a medical power of silver service waiter?: No Other Education: 12 Family history of heart disease?: Yes (Notes: father, mother and grand parents) High blood pressure: Yes High Cholesterol: Yes Past steroid/HgH use?: No Gender Identity and LGBTQ Identity Gender identity: Identifies as Male Assigned sex at : Male Sexual orientation: Straight or heterosexualborn and rasied in [place], i move to [place] in 1991 we moved to [place] as my brother's son live in [place], 3 time, seperated now 2009, divorce got screwed up, Problems Problem Type SNOMED Code ICD Code Onset Dates Problem Status W/U Status Risk Notes Problem Manic bipolar I disorder (43352676) Bipolar disorder, current episode hypomanic (F31.0) Active confirmed Problem Depressed bipolar I disorder in remission (11165941) Bipolar disorder, in partial remission, most recent episode depressed (F31.75) Active confirmed Problem Generalized anxiety disorder (07493089) Generalized anxiety disorder (F41.1) 4 Active confirmed Problem Primary insomnia (6525239) Primary insomnia (F51.01) 4 Active confirmed Problem Atrial fibrillation (08746064) Unspecified atrial fibrillation (I48.91) 4 Active confirmed Problem Nondependent alcohol abuse in remission (154603851) History of alcohol abuse (F10.11) Active confirmed Vital Signs Heart Rate 71 /min 05/05/2025 Height-cm 185.42 cm 05/05/2025 Blood pressure diastolic 74 mm Hg 05/05/2025 Weight-kg 78.47 kg 05/05/2025 Height 73.00 in 05/05/2025 Blood pressure systolic 108 mm Hg 05/05/2025 Weight 173.0 lbs 05/05/2025 BMI 22.82 kg/m2 05/05/2025 Encounters Encounter Location Date Provider Diagnosis [place] [address] [facility] [address] [place] [address] 05/05/2025 Ramona [place] Bipolar disorder, current episode hypomanic F31.0 ; Primary insomnia F51.01 and Generalized anxiety disorder F41.1 [place] [address] [facility] [address] [place] [address] 09/04/2024 Ramona [place] Bipolar I disorder F31.9 ; Primary insomnia F51.01 and Generalized anxiety disorder F41.1 [place] [address] [address] 12/03/2024 Ramona [place] Generalized anxiety disorder F41.1 ; Bipolar disorder, in partial remission, most recent episode depressed F31.75 ; Primary insomnia F51.01 ; Encounter for screening for cardiovascular disorders Z13.6 and Encounter for screening for depression Z13.31 [place] [address] [address] 04/06/2025 Ramona [place] Bipolar disorder, current episode hypomanic F31.0 ; Primary insomnia F51.01 and Generalized anxiety disorder F41.1 [place] [address] [address] 02/17/2025 Ramona [place]aco [place] [address] [address] 02/28/2025 Ramona [place]aco [place] [address] [address] 03/01/2025 Ramona [place] Assessments Encounter Date Diagnosis (ICD Code) Assessment Notes Treatment Notes Treatment Clinical Notes Section Notes 05/05/2025 Bipolar disorder, current episode hypomanic (ICD-10 - F31.0) 05/05/2025 Primary insomnia (ICD-10 - F51.01) 09/04/2024 Primary insomnia (ICD-10 - F51.01) Assessment [...] and medication management. Sooner if concerns arise 04/06/2025 Primary insomnia (ICD-10 - F51.01) 04/06/2025 Bipolar disorder, current episode hypomanic (ICD-10 - F31.0) 12/03/2024 Bipolar disorder, in partial remission, most recent episode depressed (ICD-10 - F31.75) 12/03/2024 Generalized anxiety disorder (ICD-10 - F41.1) 12/03/2024 Primary insomnia (ICD-10 - F51.01) 04/06/2025 Generalized anxiety disorder (ICD-10 - F41.1) 09/04/2024 Generalized anxiety disorder (ICD-10 - F41.1) [...] and medication management. Sooner if concerns arise 05/05/2025 Generalized anxiety disorder (ICD-10 - F41.1) 12/03/2024 Encounter for screening for cardiovascular disorders (ICD-10 - Z13.6) 12/03/2024 Encounter for screening for depression (ICD-10 - Z13.31) 12/03/2024 Other Christine Garcia, an adult male [...] using healthy coping mechanisms, including involvement with [place] activities and regular exercise at the gym.Plan:- Continue current medication regimen (as listed above)- Encourage continuation of current coping strategies, including [place] involvement and regular exercise 04/06/2025 Other Christine Garcia, male patient with a history of bipolar disorder, presenting with symptoms of carlin since late January, including decreased sleep, increased spending, anxiety, and irritability. Bipolar Disorder - Manic Episode Assessment: Patient reports symptoms consistent with a manic episode, including decreased need for sleep (sleeping only 3-5 hours per night compared to his baseline of 14-18 hours), increased spending, anxiety, irritability, and lashing out. Symptoms began at the end of January 2025, following a cruise vacation. Patient's girlfriend has expressed concern about his behavior. Previous medication regimen included Trintellix 20 mg for depression/anxi ety, mirtazapine at bedtime, and Vraylar 4.5 mg for bipolar disorder. Patient was previously stable on this regimen when seen in November, though there was a noted increase in spending at that time. Plan: - Increase Vraylar to 6 mg daily - Continue Trintellix 20 mg daily - Continue mirtazapine at bedtime - Follow-up appointment in 4 weeks Tremor Assessment: Patient reports experiencing sudden onset of shaking, particularly in the hands. The tremor is not causing functional impairment (not dropping items). This could be a side effect of medication or related to the current manic episode. Plan: - Monitor tremor and reassess at follow-up appointment Plan Of Treatment Next Appt Details Provider Name:Ramona nance, 06/09/2025 08:45:00 AM, [address] [facility] [address] [address] [facility] [address], [place], [address], Insurance Providers Payer Name Payer Address Payer Phone Subscriber Number Group Number Insured Name Patient Relationship to Insured Coverage Start Date Coverage End Date [employer] Medicare Replacement/ Advantage - Ppo [address] [address] [place] [address] [id number] CHRISTINE GARCIA Self - patient is the insured Medical (General) History Medical History History ICD Code Problems: Atrial fibrillation Bipolar disorder Generalized anxiety disorder History of alcoholism Primary insomnia , Surgical History Surgery Date(Month/Year) Neurosurgery Heart surgery 10/12/2021 Neurosurgery 12/22/2012 Heart surgery 05/24/2010 back stimulator 10/2023
--- OUTSIDE RECORDS SUMMARY | 2025-05-06 07:02 | XMS_ITS | Encounter Summary ---
Author Organization [facility] Address [address] [place] [address] Care Team Providers Care Label Printing Machinist Name Role Phone Ahmet Mejía MD Primary Care Provider Vince Hermosillo DO Unavailable [phone] Vince Hermosillo DO Primary Care Provider Vince Hermosillo DO Primary Care Provider [phone] Pcp, Unknown Primary Care Provider Unavailsimona e Ragini Ayala MD Primary Care Provider Wenceslao Kohli DO Primary Care Provider Jerman Hamilton MD Primary Care Provider [phone] Encounter Details Date Type Department Care Team (Late st Contact Info) Description 12/15/2010 [facility] Outpatient Visit [facility] Medical [facility] - Family Medicine [address] [place] [address] Ahmet Mejía MD [address] [place] [address] Social History Tobacco Use Types Packs/Day Years Used Date Smoking Tobacco: Never Smokeless Tobacco: Never Alcohol Use Standard Drinks/Week Comments No 0 (1 standard drink = 0.6 oz pur e alcohol) rarely Sex and Gender Information Value Date Recorded Sex Assigned at Not on file Legal Sex Male 9:53 AM NOTCHER Gender Identity Not on file Sexual Orientation Not on file 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 file Not on file documented as of this encounter Plan of Treatment Not on file documented as of this encounter Visit Diagnoses Not on filedocumented in this encounter Care Teams Label Printing Machinist Relationship Specialty Start Date End Date Ahmet Mejía MD [address] [place] [address] PCP - General 07/15/10 04/16/11 Vince Hermosillo, DO [address] [place] [address] PCP - General 01/08/12 03/10/13 Vince Hermosillo, DO [address] [place] [address] PCP - General Family Medicine 03/11/13 11/16/13 Pcp, Unknown [place] [address] PCP - General 11/17/13 Ragini Ayala MD [place] [address] PCP - General Internal Medicine 04/13/14 02/19/18 Wenceslao Kohli, DO [place] [address] PCP - General Emergency Medicine 02/20/18 03/17/20 Jerman Hamilton MD [address] [address] PCP - General Internal Medicine 03/18/20 Vince Hermosillo, DO [address] [place] [address] Family Medicine 09/27/11 02/19/18 documented as of this encounter
--- OUTSIDE RECORDS SUMMARY | 2025-05-06 07:02 | XMS_ITS ---
Author Organization [facility] Address [address] [facility] [address] [place] [address] Care Team Providers Care Litigation Examiner Name Role Phone Jerman Hamilton MD Primary Care Provider Ramona Zepeda Unavailable [phone] Allergies Allergen (clinical drug ingredient) Drug/Non Drug Allergy documented on EMR Reaction Allergy Type Onset Date Status menthol Icy Hot Unknown Drug Allergy 12/27/2023 Active REASON FOR VISIT 1 month f/u Medications Medication SIG (Take, Route, Frequency, Duration) Notes Start Date End Date Status Trintellix 20 MG 1 tablet Oral Once a day; Duration: 30 days 12/27/2023 Active Cyanocobalamin 1000 MCG/ML Injection 12/27/2023 Active Entresto 24-26 MG Oral 12/27/2023 A ctive Eliquis 5 MG Oral 12/27/2023 Active Mirtazapine 7.5 MG 1 tablet at bedtime Oral Once a day; Duration: 30 days Active Synjardy XR 5-1,000 mg Oral *Pick strength-form from [employer] for eRX* 12/27/2023 Active Vraylar 4.5 mg 1 tablet Oral daily; Duration: 30 days decreasing, DC 6 mg thanks Active Atorvastatin Calcium 20 MG Oral 12/27/2023 Active Divalproex Sodium 250 MG 1 capsule every morning, 2 capsules at bedtime Orally see sign; Duration: 30 days 05/05/2025 Active Montelukast Sodium 10 MG Oral 12/27/2023 Active Metoprolol Succinate ER 50 MG Oral 12/27/2023 Active Pantoprazole Sodium 40 MG Oral 12/27/2023 Active True Metrix Blood Glucose Test In Vitro 12/27/2023 Active TRUEPLUS LANCETS 33 gauge MISCELLANEOUS *Reorder from [facility] for eRx and Interaction Alerts* 12/27/2023 Active Social History Tobacco Use: Social [...] you last smoked? 5-10 years Section Notes: hx of illicit drug use: Cocaine, Meth, Heroin born and rasied in [facility], i move to [place] in 1991 we moved to [place] as my brother's son live in [place], 3 time, seperated now 2009, divorce got screwed up, Vital Signs Blood pressure systolic 108 mm Hg 05/05/20 25 Blood pressure diastolic 74 mm Hg 025 Heart Rate 71 /min 05/05/2025 Height 73.00 in 05/05/2025 Weight 173.0 lbs 05/05/2025 BMI 22.82 kg/m2 05/05/2025 Height-cm 185.42 cm 05/05/2025 Weight-kg 78.47 kg 05/05/2025 Encounters Encounter Location Date Provider Diagnosis [facility] [address] [address] 05/05/2025 Ramona Monaco Bipolar disorder, current episode hypomanic F31.0 ; Primary insomnia F51.01 and Generalized anxiety disorder F41.1 Assessments Encounter Date Diagnosis (ICD Code) Assessment Notes Treatment Notes Treatment Clinical Notes Section Notes 05/05/2025 Bipolar disorder, current episode hypomanic (ICD-10 - F31.0) 05/05/2025 Primary insomnia (ICD-10 - F51.01) 05/05/2025 Generalized anxiety disorder (ICD-10 - F41.1) Plan Of Treatment Medication Medication Name Sig Start Date Stop Date Notes Trintellix 20 MG 1 tablet Oral Once a day; Duration: 30 days 12/27/2023 Mirtazapine 7.5 MG 1 tablet at bedtime Oral Once a day; Duration: 30 days Vraylar 4.5 mg 1 tablet Oral daily; Duration: 30 days decreasing, DC 6 mg thanks Divalproex Sodium 250 MG 1 capsule every morning, 2 capsules at bedtime Orally see sign; Duration: 30 days 05/05/2025 Vraylar 6 MG 1 capsule Orally Once a day 04/06/2025 increasing dose Next Appt Details Provider Name:Ramona N Abbey nance, 06/09/2025 08:45:00 AM, [address], [facility] [address], [address], Progress Notes * CHRISTINE GARCIA HUGODOB:[birth year] (55 yo M)Acc No.[id number]:05/05/2025 Patient: CHRISTINE BERKOWITZ HUGO Provider: Noelle Monaco :1970 A ge:55 Y S ex:Male Date:05/05/2025 Address:[address] [place], [place] [id number] Pcp:Jerman Hamilton MD Subjective: * Chief Complaints: * 1 . 1 month f/u. * HPI: D epression Screening: REMY-7 (2018 Edition) F eeling nervous, anxious, or on edge M ore than half the days N ot being able to stop or control worrying?Not at all W orrying too much about different things S everal T rouble relaxing N ot at all B eing so restless that it is hard to sit still N ot at all B ecoming easily annoyed or irritable N early every day F eeling afraid as if something awful might happen S everal T otal REMY-7 Score 7 I f you checked any problems, how difficult have they made it for you to do your work, take care of things at home, or get along with other people? V melvin difficult I nterpretation of Total ( 5 to 9) Mild [place]-Suicide Severity Rating Scale: Suicide Risk [...] do anything to end your life? N o D epression screening: PHQ-9 L ittle interest [...] Intervention D epression Screening Findings N egative F ollow-Up for Depression P sychiatric follow-up S uicide Risk Assessment Performed 0 05/05/2025 - date H istory of Presenting Problem: 55 y/o male, lives with girlfriend in a duplex with his mom on the other side, dx with bipolar disorder, anxiety and insomnia. Hx of alcohol use d/o, sober 8 years. Brother is legal guardian This note is transcribed using speech recognition software. It is a reflection of a visit with the patient. It might have some inaccuracy, including medication names and transcribing errors, though efforts have been made to correct them. History of Present Illness Christine Garcia, a male patient with a history of bipolar disorder, presents with symptoms of carlin that began at the end of January 2025. He reports experiencing anxiety, lashing out, increased spending urges, and significant changes in his sleep pattern. The patient describes feeling not good and believes he is cycling. He reports symptoms of anxiety, irritability (described as lashing out), and increased urges to spend money. His sleep pattern has dramatically shifted from his previous norm of 14-18 hours per day to now only sleeping for short periods, often going to bed at 7 or 8 PM and waking up at 3, 4, or 5 AM. This change in sleep pattern began suddenly, which he describes as the light switch went on. Christine notes that he has been experiencing these symptoms since returning from a cruise around January 25. He reports being short, very easy to lash out, angry, to the point where his girlfriend is worried about him. The patient also mentions experiencing sudden, uncontrollable shaking or tremors, particularly in his hands, though he notes he is not dropping things. Regarding his current medication regimen, Christine reports taking Trintellix 20 mg for depression and anxiety, mirtazapine at bedtime, and Vraylar, which was previously reduced from 6 mg to 4.5 mg due to manic symptoms. He states he is adhering to the same medication regimen as when he last saw the clinician in November. The patient discloses a history of multiple overdoses on his prescribed medications and street drugs, indicating he may be prone to other conditions. He also mentions that his medications are currently free due to reaching his [id number]-uw-[id number] maximum for copays. Medications and Supplements Patient is taking Trintellix 20 mg for depression-anxiety and mirtazapine at bedtime. Vraylar 4.5 mg is also being taken for bipolar disorder, previously at 6 mg when experiencing carlin. The patient reports experiencing tremors as a side effect. Patient has a history of medication overdose. All current medications are covered by insurance with a 30-day supply limit for Vraylar due to its cost. Social History - Substance Use: History of street drug use and medication overdose - Relationship Status: Has a girlfriend - Living Situation: Lives with girlfriend Medical History - Bipolar disorder, currently experiencing manic symptoms - History of multiple medication overdoses - History of illicit drug use Review of Systems General: Positive for sleep disturbance, fatigue. Neurological: Positive for tremors. Psychiatric: Positive for anxiety, irritability, anger, lashing out, increased spending urges, carlin symptoms. Cardiovascular: Negative for palpitations. Gastrointestinal: Negative for nausea, vomiting. Depression screening done. F unctional Status: Functional Status Assessment F all Risk Assessment: N o falls in the past year * Medical History: P roblems: Atrial fibrillation, Bipolar disorder, Generalized anxiety disorder, History of alcoholism, Primary insomnia, ,. * Surgical History: N eurosurgery , Heart surgery 10/12/2021, Neurosurgery 12/22/2012, Heart surgery 05/24/2010, back stimulator 10/2023. * Family History: F ather: Alcohol abuse [...] Years: Former smoker 02/05/2020,Smoking Status: 4 08/30/2023. D rug/Alcohol: D rugs H ave you used drugs other than those for medical reasons in the past 12 months? N o Do you drink alcohol?: No; hx of alcoholism. H ousehold: H ousehold M arital status: l iving with significant other N umber of adults in household: 2 N umber of children in household: 0 M iscellaneous: S afety issues D o you feel safe at home? Y es Occupation: disability. hx of illicit drug use: Cocaine, Meth, Heroin born and rasied in [facility], i move to [place] in 1991 we moved to [place] as my brother's son live in [place], 3 time, seperated now 2009, divorce got screwed up,. * Medications: T aking Cyanocobalamin 1000 MCG/ML Solution Injection , Taking Entresto 24-26 MG Tablet Oral , Taking TRUEPLUS LANCETS 33 gauge EACH MISCELLANEOUS , Notes to Pharmacist: *Reorder from [facility] for eRx and Interaction Alerts*, Taking [...] , Notes to Pharmacist: *Pick strength-form from [employer] for eRX*, Taking Atorvastatin Calcium 20 MG Tablet Oral , Taking Eliquis 5 MG Tablet Oral , Taking Vraylar 6 MG Capsule 1 capsule Orally Once a day , Notes to Pharmacist: increasing dose, Taking Trintellix 20 MG Tablet 1 tablet Oral Once a day , Taking Mirtazapine 7.5 MG Tablet 1 tablet at bedtime Oral Once a day , Medication List reviewed and reconciled with the patient * Allergies: I cy Hot: Allergy - Onset Date 12/27/2023. Objective: * Vitals: B P:108/74mm Hg, HR:71/min, Wt:173.0lbs, Wt-k.47 kg, Ht: 73.00 in, Ht-cm: 185.42 cm, BMI:22.82Index, Body Surface Area: 2.01. Assessment: * Assessment: 1. B ipolar disorder, current episode hypomanic - F31.0 (Primary) 2 . P rimary insomnia - F51.01 3 . G eneralized anxiety disorder - F41.1 Plan: * Treatment: 2. G eneralized anxiety disorder Refill Trintellix Tablet, 20 MG, 1 tablet, Oral, Once a day, 30 days, 30 Tablet; R efill Mirtazapine Tablet, 7.5 MG, 1 tablet at bedtime, Oral, Once a day, 30 days, 30, Refills 0. * Procedure Codes: 1 036F TOBACCO NON-USER, 04506 BEHAV ASSMT W/SCORE & DOCD/STAND INSTRUMENT * Preventive Medicine: Screenings: D epression screening Have you had a recent depression screening? Y es * Billing Information: * Visit Code: * Procedure Codes: 1036F TOBACCO NON-USER. 01624 BEHAV ASSMT W/SCORE & DOCD/STAND INSTRUMENT. * Electronic signature of Nemesio Monaco on 05/06/2025 at 07:02 AM CDT Sign off status: Pending * Provider: Noelle Monaco Date: 05/05/2025 Generated for Joe mnotoya/Alexandra/Ezra on: 05/06/2025 07:02 AM CDT History and Physical Notes * HPI (History of Present Illness) Category Sub-Category Detail Notes Category Not es History of Presenting Problem Depression screening done Depression screening PHQ-9 Little inte rest or [...] Depression Intervention Depression Screening Findings: N egative Follow-Up for Depression: Psychiatric fo llow-up Suicide Risk Assessment Performed: 05/05 - date Functional Status Functional Status Assessment F all Risk Assessment:: No falls in the past year Depression Screening REMY-7 (2018 Edition) Feelin g nervous, anxious, or on edge: More than half the days Not being able to stop or control worryi ng: Not at all Worrying too much about different things : Several days Trouble relaxing: Not at all Being so restless that it is hard to sit still: Not at all Becoming easily annoyed or irritable: Ne nena every day Feeling afraid as if something awful ramiro ht happen: Several days Total REMY-7 Score: 7 If you checked any problems, how difficult have they made it for you to do your work, take care of things at home, or get along with other people?: Very difficult Interpretation of Total: (5 to 9) Mild [place]-Suicide Severity Rating Scale Suicide Risk (CSRS-screener) in [...]
--- OUTSIDE RECORDS SUMMARY | 2025-05-06 07:02 | XMS_ITS | Clinical Summary ---
Author Organization [facility] [employer] Address [address] [place] [address] Care Team Providers Care Primer Expeditor And Drier Name Role Phone Jerman Hamilton MD Primary Care Provider [phone] Source Comments [facility]non-owned Affiliates and Associated Physician Practices is amultiple site organization consisting of ambulatory clinics and hospital sitesin [place], [place], [place] and [place]. This disclosure is being madepursuant to the Care Everywhere program and may not contain all information available regarding this patient. Last updated 18.[facility] Allergies Active Allergy Reactions Criticality Noted Date [...] different from the original. EP--Dr. Hal Wong Radio Sales Account Executive - Dr. Thuan Hart Problem Noted Date Diagnosed Date LBBB (left bundle branch block) 08/03/2015 Paroxysmal atrial fibrillation 08/03/2015 Essential hypertension, benign 08/03/2015 Pure hypercholesterolemia 08/03/2015 Non morbid obesity due to excess calories 2014 Dietary counseling 08/03/2015 Bi-V Defibrillator 06/22/2012 Overview (03/07/2016): 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 file Not on file Last Filed Vital Signs Vital Sign Reading Time Taken Comments Blood Pressure 114/68 08/16/2020 2:05 PM WATER REGULATOR AND VALVE REPAIRER Pulse 70 08/16/2020 2:05 PM WATER REGULATOR AND VALVE REPAIRER Temperature 36.2 C (97.1 F) 03/07/2016 8:29 AM CDT Respiratory Rate 12 08/16/2020 2:05 PM WATER REGULATOR AND VALVE REPAIRER Oxygen Saturation 97% 03/07/2016 12:00 PM CDT Inhaled Oxygen Concentration - - Weight 73 kg (161 lb) 08/16/2020 2:05 PM WATER REGULATOR AND VALVE REPAIRER Height 185.4 cm (6' 1) 08/16/2020 2:05 PM WATER REGULATOR AND VALVE REPAIRER Body Mass Index 21.24 08/16/2020 2:05 PM WATER REGULATOR AND VALVE REPAIRER Plan of Treatment Health Maintenance Due Date [...] 2023-2 5 season) 2024 INFLUENZA VACCINE (#1) 2025 07/06/2020 HIV SCREENING Completed 07/22/2010 HIB VACCINE Aged [...] this topic Medical Devices Implanted Type Area Lumber Carrier Operator Device Identifier Shelf Expiration Date Model / Serial / Lot Alloquent Corticocanc S 8.0mm Implanted:Qty: 1 on 03/11/2013 by Roberto Jaime MD at [facility] [place] N/A: Spine Cervical [employer] 04/24/2015 [id number] / / [id number] Alloquent Corticocanc S 8.0mm Implanted:Qty: 1 on 03/11/2013 by Roberto Jaime MD at [facility] N/A: Spine Cervical [employer] 05/29/2015 [id number] / / [id number] 37mm Luxe Acp Implanted:Qty: 1 on 03/11/2013 by Roberto Jaime MD at [facility] Spine Cervical [employer] Spine [id number] / / Description:Implanted from s terile tray. 14mm Fixed Screws Implanted:Qty: 6 on 03/11/2013 by Roberto Jaime MD at [facility] [place] Spine Cervical [employer] Spine [id number] / / Description:Implanted from s terile tray. Procedures Procedure Name Priority Date/Time Associated Diagnosis Comments HIV-1 HIV-2 ANTIBODY RAPID AM Draw 07/22/2010 3:35 AM CDT from Last 3 Months or Most Recently Relevant to Health Maintenance Results * HIV-1 HIV-2 ANTIBODY RAPID (07/22/2010 3:35 AM CDT) HIV-1/HIV-2 Rapid Antibody Negative [facility] BLOOD SPECIMEN / Unknown 07/22/2010 3:35 AM CDT 07/22/2010 4:20 AM CDT Shane Reyna MD LAB - CHEMISTRY ORDERABLES Final Result [facility] [address] [id number] from Last 3 Months or Most Recently Relevant to Health Maintenance [address] [place] [address] MEDICAID - [facility] MANAGED MEDICARE ADV [id number] MANAGED MEDICARE ADV SELF PAY NO INSURANCE Member Subscriber Plan / Payer (Ef fective for All Dates) Name:Jamie Garcia J Member ID:Not on file Relation to Subscriber:Self Name:Jamie Garcia Subscriber ID:Not on file Payer ID:Not on file Group ID:Not on file Type:Self Pay Address: [place], [place] Advance Directives Documents on File Type Date Recorded 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
--- OUTSIDE RECORDS SUMMARY | 2025-05-06 07:02 | XMS_ITS | Clinical Summary ---
Author Organization [facility] Address [address] [address] Phone Care Team Providers Care Corporate Safety Manager Name Role Phone Jerman Hamilton MD Primary Care Provider [phone] Allergies Active Allergy Reactions Criticality Noted Date [...] Due Date Last Done Comments Influenza Vaccine (#1) 2025 06/20/2022, 2020, 07/06/2020 Insurance [employer] MEDICARE ADVANTAGE Care Teams Corporate Safety Manager Relationship Specialty Start Date End Date Jerman Hamilton MD [address] [place] [address] PCP - General Internal Medicine 06/07/21
[2025-05-06 08:39] LABS: Hemoglobin A1C 5.6 % (<5.7)
[2025-05-06 08:45] LABS: Alanine Aminotransferase 30 U/L (6-50); Albumin Level 4.7 g/dL (3.5-5.1); Alkaline Phosphatase 44 U/L (38-126); Anion Gap 8 mmol/L (4-12); Aspartate Amino Transferase 36 U/L (17-59); Bilirubin,Total 0.8 mg/dL (0.2-1.3); Blood Urea Nitrogen 9 mg/dL (9-20); Calcium 10.6 mg/dL (8.4-10.2); Carbon Dioxide 31 mmol/L (22-30); Chloride 101 mmol/L (98-107); Cholesterol 142 mg/dL (0-200); Estimated Glomerular Filt Rate > 60; Glucose 125 mg/dL (65-110); HDL Direct 42 mg/dL; Potassium 4.2 mmol/L (3.4-5.0); Sodium 140 mmol/L (137-145); Total Protein 7.8 g/dL (6.3-8.2); Triglycerides 74 mg/dL (<150)
[2025-05-06 08:51] LABS: MALB Creatinine Ratio < 18.8 mg/g (0-30)
[2025-05-06 09:17] LABS: Free T4 Free Thyroxine 1.28 ng/dL (0.78-2.19)
[2025-05-06 09:20] LABS: Thyroid Stimulating Hormone 0.704 uIU/mL (0.465-4.680)
[2025-05-06 09:56] LABS: Vitamin B12 976.0 pg/mL (239-931)
== END 2025-05-06 07:00 | disposition home or self-care (01) ==
PROVIDERS: PCP Internal Medicine; Visit Provider Internal Medicine
DX: E78.2 Mixed hyperlipidemia (principal); E53.8 Deficiency of other specified B group vitamins; E55.9 Vitamin D deficiency, unspecified; Z79.899 Other long term (current) drug therapy; E11.42 Type 2 diabetes mellitus with diabetic polyneuropathy; Z13.29 Encounter for screening for other suspected endocrine disorder
CPT/HCPCS: 36415; 80053; 80061; 82043; 82306; 82607; 82746; 83036; 84439; 84443

== ENCOUNTER 2025-06-10 10:17 | Outpatient (CLI) | payer MEDICARE, SELFPAY ==
--- OUTSIDE RECORDS SUMMARY | 2025-06-09 03:45 | XMS_ITS ---
Author Organization [facility] efw-suhl Address [address] [facility] [address] [place] [address] Care Team Providers Care Clinical Assistant Name Role Phone Jerman Hamilton MD Primary Care Provider Ramona Zepeda Unavailable [phone] Allergies Allergen (clinical drug ingredient) Drug/Non Drug Allergy documented on EMR Reaction Allergy Type Onset Date Status menthol Icy Hot Unknown Drug Allergy 12/27/2023 Active REASON FOR VISIT 1 month f/u, Patient stated, I don't think the medicine is working. I am very irritable and aggitated. Medications Medication SIG (Take, Route, Frequency, Duration) Notes Start Date End Date Status Eliquis 5 MG Tablet Oral 12/27/2023 Active Vraylar 4.5 mg Capsule 1 tablet Oral daily; Duration: 30 days 06/09/2025 Active Divalproex Sodium 250 MG Tablet Delayed Release 1 capsule every morning, 2 capsules at bedtime Orally see sign; Duration: 30 days 06/09/2025 Active Atorvastatin Calcium 20 MG Tablet Oral 12/27/2023 Active Pantoprazole Sodium 40 MG Tablet Delayed Release Oral 12/27/2023 Active Metoprolol Succinate ER 50 MG Tablet Extended Release 24 Hour Oral 12/27/2023 Active Montelukast Sodium 10 MG Tablet Oral 12/27/2023 Active True Metrix Blood Glucose Test Strip In Vitro 12/27/2023 Active Synjardy XR 5-1,000 mg Tablet Extended Release 24 Hour Oral *Pick strength-form from [employer] for eRX* 12/27/2023 Active Cyanocobalamin 1000 MCG/ML Solution Injection 12/27/2023 Active TRUEPLUS LANCETS 33 gauge EACH MISCELLANEOUS *Reorder from [facility] for eRx and Interaction Alerts* 12/27/2023 Active Mirtazapine 7.5 MG Tablet 1 tablet at bedtime Oral Once a day; Duration: 30 days 06/09/2025 Active Entresto 24-26 MG Tablet Oral 12/27/2023 Active Trintellix 10 MG Tablet 1 tablet Orally Once a day; Duration: 30 days decreasing, DC 20 mg 06/09/2025 Active Social History Tobacco Use: Social History Observation Description Date Details (start date - stop date) Former Smoker NA - NA Sex Assigned At : Social History Observation Description Sex Assigned At Male Social History Miscellaneous: Social Info Question Answer Notes Safety issues: Do you feel safe at home? Yes Household: Social Info Question Answer Notes Household Marital status: living with significant o ther Number of adults in household: 2 Number of children in household: 0 Drug/Alcohol: Social Info Question Answer Notes Drugs Have you used drugs other than those for medical reasons in the past 12 months? No Tobacco Use: Social Info Question Answer Notes Tobacco Control (Standard) Tobacco use: Former smoker How long has it been since you last smoked? 5-10 years Additional Details Category Social Info Options Details Miscellaneous: Occupation: disability Migrated Social History Migrated Social History Alcohol Intake: None 02/05/2020,Tobacco Years: Former smoker 02/05/2020,Smoking Status: 4 08/30/2023 Drug/Alcohol: Do you drink alcohol? No; h x of alcoholism Section Notes: hx of illicit drug use: Cocaine, Meth, Heroin born and rasied in [facility], i move to [place] in 1991 we moved to [place] as my brother's son live in [place], 3 time, seperated now 2009, divorce got screwed up, Vital Signs Blood pressure systolic 108 mm Hg 06/09/20 25 Blood pressure diastolic 77 mm Hg 025 Heart Rate 91 /min 06/09/2025 Height 73.00 in 06/09/2025 Weight 169 lbs 06/09/2025 BMI 22.29 kg/m2 06/09/2025 Height-cm 185.42 cm 06/09/2025 Weight-kg 76.66 kg 06/09/2025 Encounters Encounter Location Date Provider Diagnosis [facility], [facility] [address] [place] [address] 06/09/2025 Ramona Monaco Bipolar disorder, current episode hypomanic F31.0 ; Generalized anxiety disorder F41.1 ; Irritability R45.4 ; Primary insomnia F51.01 and Other mcfp (current) drug therapy Z79.899 Assessments Encounter Date Diagnosis (ICD Code) Assessment Notes Treatment Notes Treatment Clinical Notes Section Notes 06/09/2025 Bipolar disorder, current episode hypomanic (ICD-10 - F31.0) 06/09/2025 Generalized anxiety disorder (ICD-10 - F41.1) 06/09/2025 Irritability (ICD-10 - R45.4) 06/09/2025 Primary insomnia (ICD-10 - F51.01) 06/09/2025 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 Bipolar Disorder Assessment: Patient reports ongoing anxiety, irritability, and anger with a short fuse despite current medication regimen. No significant improvement noted since last visit. 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 Sleep and energy levels are stable, with 8-9 hours of sleep nightly and feeling rested upon waking. Appetite has increased slightly, attributed to Depakote. No signs of depression or carlin reported. Current medications include Depakote (delayed release 250, one tablet in the morning, 2 at night), Vraylar (reduced to 4.5 mg), Trintellix (20 mg), and mirtazapine (7.5 mg at bedtime). Patient denies missing any doses. Recent adjustment to Entresto (sacubitril + valsartan) due to lightheadedness upon standing. Plan: - Decrease Trintellix to 10 mg daily - Continue all other psychiatric medications at current doses: - Follow up in 3-4 weeks - Laboratory tests to be ordered: - Thyroid function - CBC - CMP - Lipid panel - Depakote level Medical Decision Making Christine Garcia is a patient with a history of psychiatric issues presenting with persistent anxiety, irritability, and anger despite current medication regimen. The patient's symptoms of increased anxiety, restlessness, and irritability without significant mood changes or depression suggest a possible overactivation from the current medication combination. The recent job change with the [employer], while managed well, may be contributing to increased stress levels. The decision to reduce Trintellix from 20mg to 10mg is based on the hypothesis that the patient may be too activated, potentially due to the combination of medications. This adjustment aims to address the persistent anxiety and irritability while maintaining mood stability, as the Vraylar appears to be effectively preventing manic episodes. The recent change in Entresto dosing due to lightheadedness upon standing was also considered in the overall clinical picture. Thyroid function, CBC, CMP, lipid panel, and Depakote levels were ordered to rule out any underlying medical conditions contributing to the patient's symptoms and to monitor medication effects. Plan Of Treatment Medication Medication Name Sig Start Date Stop Date Notes Vraylar 4.5 mg Capsule 1 tablet Oral pushpa ly; Duration: 30 days 06/09/2025 Trintellix 20 MG Tablet 1 tablet Oral On ce a day; Duration: 30 days 06/09/2025 Divalproex Sodium 250 MG Tablet Delayed Release 1 capsule every morning, 2 capsules at bedtime Orally see sign; Duration: 30 days 06/09/2025 Mirtazapine 7.5 MG Tablet 1 tablet at be dtime Oral Once a day; Duration: 30 days 06/09/2025 Trintellix 10 MG Tablet 1 tablet Orally Once a day; Duration: 30 days 06/09/2025 decreasing, DC 20 mg Pending Test Test Name Order Date LIPID PANEL, STANDARD (7600) 06/09/2025 THYROID PANEL WITH TSH (7444) 06/09/2025 COMPREHENSIVE METABOLIC PANEL (27100) CBC (INCLUDES DIFF/PLT) (6399) HEMOGLOBIN A1c (496) 06/09/2025 TESTOSTERONE, TOTAL, MALES (ADULT), IA ( 873) 06/09/2025 VALPROIC ACID (916) 06/09/2025 Next Appt Details Follow Up: 3 Weeks, Reason: Provider Name:Ramona nance, 07/12/2025 09:00:00 AM, [address], [address], [place], [id number], History and Physical Notes * HPI (History [...] Psychiatric fo llow-up Suicide Risk Assessment Performed: - julio cesar e Depression Screening REMY-7 (2018 Edition) Feelin g nervous, anxious, or on edge: Nearly every day Not being able to stop or control worryi ng: Not at all Worrying too much about different things : Several days Trouble relaxing: Nearly every day Being so restless that it is hard to sit still: Not at all Becoming easily annoyed or irritable: Ne nena every day Feeling afraid as if something awful ramiro ht happen: Not at all Total REMY-7 Score: 10 If you checked any problems, how difficult have they made it for you to do your work, take care of things at home, or get along with other people?: Extremely difficult Interpretation of Total: (10 to 14) Mode rate [place]-Suicide Severity Rating Scale Suicide Risk (CSRS-screener) in [...] Category Sub-Category Detail Notes Category Not es General Examination Mental Status Examination - Mood: Patient reports feeling anxious, angry, short fuse. Irritable. Also states just the anxiousness and the fidgety. - Thought Process: Linear and goal-directed. - Cognition: Alert and oriented. Patient reports sleeping 8 to 9 hours every night and feeling rested. Progress Notes * CHRISTINE GARCIADOB:[birth year] (55 yo M)Acc No.[id number]:06/09/2025 Patient: CHRISTINE BERKOWITZ Provider: Noelle Monaco :1970 A ge:55 Y S ex:Male Date:06/09/2025 Address:[address] [place], [place] [id number] Pcp:Jerman Hamilton MD Subjective: * Chief Complaints: * 1 month f/uPatient stated, I don't think the medicine is working. I am very irritable and aggitated. * HPI: H istory of Presenting Problem: 55 y/o [...] History of Present Illness Christine Garcia, a patient with a history of psychiatric treatment, presents with persistent anxiety, anger, and irritability despite current medication regimen. He reports feeling about the same and at wits' ends with things, indicating no improvement in his condition. Mr. Garcia describes his primary symptoms as anxiety, anger, and irritability, characterized by a short fuse. He denies feeling depressed or experiencing any mood fluctuations suggestive of carlin. The patient reports increased appetite, which he attributes to Depakote, and notes that he has lost a couple of pounds despite trying to gain weight. Sleep patterns remain stable, with 8-9 hours of sleep nightly, and he reports feeling rested upon waking. Energy levels during the day are generally adequate, though he mentions getting up earlier now compared to his previous pattern of sleeping 12-14 hours. 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 Garcia describes as a little more stressful but feels he is managing well. His , however, reports that she feels he is angry all the time, suggesting a potential discrepancy in perception of his symptoms or their impact. Regarding treatment adherence, Mr. Garcia confirms he has not missed any doses of his current medications, which include Depakote (delayed release, 250 mg, one tablet in the morning, two at night), Trintellix (20 mg), mirtazapine (7.5 mg at bedtime), and Vraylar 4.5 mg. He also reports a recent change in his cardiac medication, Entresto (sacubitril + valsartan), which was reduced from a whole tablet daily to half a tablet twice daily due to dizziness and lightheadedness upon standing. Medications and Supplements Patient is taking Depakote (delay released 250), one tablet in the morning and two at night. Valer dosage has been reduced to 4.5. Trintellix 20 mg, mirtazapine 7.5 mg at bedtime.. Depakote is associated with increased appetite. Entresto (sacubitril + valsartan) has been reduced from a whole tablet daily to half a tablet in the morning and half at night due to lightheadedness upon standing. Patient reports good medication adherence with no missed doses. 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 Negative for fatigue. Cardiovascular: Positive for lightheadedness upon standing. Neurological: Positive for restlessness, fidgety. Psychiatric: Positive for anxiety, anger, irritability, and short fuse. Negative for depression and carlin. C ontributing Factors: ongoing notes: no tobacco > 3 yrs, a bit of craving if see others using Hx alcohol misuse, sober alcohol since Jun 2020, clean drugs 201001/28/23 CBC, CMP-glucose WNL, lipid-appears normal other than HDL 32, B12, folic acid, TSH, Vit D 36-note on labs to start 2000units daily. D epression Screening: REMY-7 (2018 Edition) F eeling nervous, anxious, or on edge N early every day N ot being able to stop or control worrying?Not at all W orrying too much about different things S everal days T rouble relaxing N early every day B eing so restless that it is hard to sit still N ot at all B ecoming easily annoyed or irritable N early every day F eeling afraid as if something awful might happen N ot at all T otal REMY-7 Score 1 0 I f you checked any problems, how difficult have they made it for you to do your work, take care of things at home, or get along with other people? E xtremely difficult I nterpretation of Total ( 10 to 14) Moderate C [place]-Suicide Severity Rating Scale: Suicide Risk [...] sychiatric follow-up S uicide Risk Assessment Performed - date * Medical History: Problems: Atrial fibrillation Bipolar disorder Generalized anxiety disorder History of alcoholism Primary insomnia Medical History Verified * Surgical History: Neurosurgery Heart surgery 10/12/2021 Neurosurgery 12/22/2012 Heart surgery 05/24/2010 back stimulator 10/2023 Surgical History verified. * Social History: T obacco Use: T [...] safe at home? Y es Occupation: disability. S ocial History Verified. hx of illicit drug use: Cocaine, Meth, Heroin born and rasied in [facility], i move to [place] in 1991 we moved to [place] as my brother's son live in [place], 3 time, seperated now 2009, divorce got screwed up,. * Medications: T akingCyanocobalamin 1000 MCG/ML Solution Injection Entresto 24-26 MG Tablet Oral TRUEPLUS LANCETS 33 gauge EACH MISCELLANEOUS , Notes to Pharmacist: *Reorder from [employer] for eRx and Interaction Alerts*Metoprolol Succinate ER 50 MG Tablet Extended Release 24 Hour Oral Pantoprazole Sodium 40 MG Tablet Delayed Release Oral True Metrix Blood Glucose Test Strip In Vitro Montelukast Sodium 10 MG Tablet Oral Synjardy XR 5-1,000 mg Tablet Extended Release 24 Hour Oral , Notes to Pharmacist: *Pick strength-form from [employer] for eRX*Atorvastatin Calcium 20 MG Tablet Oral Eliquis 5 MG Tablet Oral Vraylar 4.5 mg Capsule 1 tablet Oral daily , Notes to Pharmacist: decreasing, DC 6 mg thanksTrintellix 20 MG Tablet 1 tablet Oral Once a day Mirtazapine 7.5 MG Tablet TAKE 1 TABLET BY MOUTH EVERYDAY AT BEDTIME Divalproex Sodium 250 MG Tablet Delayed Release 1 capsule every morning, 2 capsules at bedtime Orally see sign Medication List reviewed and reconciled with the patientTaking Cyanocobalamin 1000 MCG/ML Solution Injection Taking Entresto 24-26 MG Tablet Oral Taking TRUEPLUS LANCETS 33 gauge EACH MISCELLANEOUS , Notes to Pharmacist: *Reorder from [facility] for eRx and Interaction Alerts*Taking Metoprolol Succinate ER 50 MG Tablet Extended Release 24 Hour Oral Taking Pantoprazole Sodium 40 MG Tablet Delayed Release Oral Taking True Metrix Blood Glucose Test Strip In Vitro Taking Montelukast Sodium 10 MG Tablet Oral Taking Synjardy XR 5-1,000 mg Tablet Extended Release 24 Hour Oral , Notes to Pharmacist: *Pick strength-form from [facility] for eRX*Taking Atorvastatin Calcium 20 MG Tablet Oral Taking Eliquis 5 MG Tablet Oral Taking Vraylar 4.5 mg Capsule 1 tablet Oral daily , Notes to Pharmacist: decreasing, DC 6 mg thanksTaking Trintellix 20 MG Tablet 1 tablet Oral Once a day Taking Mirtazapine 7.5 MG Tablet TAKE 1 TABLET BY MOUTH EVERYDAY AT BEDTIME Taking Divalproex Sodium 250 MG Tablet Delayed Release 1 capsule every morning, 2 capsules at bedtime Orally see sign Medication List reviewed and reconciled with the patient * Allergies: I cy Hot: Allergy - Onset Date 12/27/2023yesAllergies Verified. Objective: * Vitals: B P:108/77mm Hg, HR:91/min, Wt:169lbs, Wt-k.66 kg, Ht: 73.00 in, Ht-cm: 185.42 cm, BMI:22.29Index, Body Surface Area: 1.99. * Examination: G eneral Examination: M ental Status Examination - Mood: Patient reports feeling anxious, angry, short fuse. Irritable. Also states just the anxiousness and the fidgety. - Thought Process: Linear and goal-directed. - Cognition: Alert and oriented. Patient reports sleeping 8 to 9 hours every night and feeling rested. Assessment: * Assessment: 1. B ipolar disorder, current episode hypomanic - F31.0 (Primary) 2 . G eneralized anxiety disorder - F41.1 3 . I rritability - R45.4 4 .?Primary insomnia - F51.01 5 . O ther mcfp (current) drug therapy - Z79.899 Plan: * Treatment: 2. G eneralized anxiety disorder Stop Trintellix Tablet, 20 MG, 1 tablet, Oral, Once a day, 30 days, 30 Tablet; S tart Trintellix Tablet, 10 MG, 1 tablet, Orally, Once a day, 30 days, 30 Tablet, Refills 0, Notes to Pharmacist: decreasing, DC 20 mg. 3. I rritability L AB: TESTOSTERONE, TOTAL, MALES (ADULT), IA (873) 4. P rimary insomnia Refill Mirtazapine Tablet, 7.5 MG, 1 tablet at bedtime, Oral, Once a day, 30 days, 30 Tablet, Refills 0. 5. 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 O thers Clinical Notes: Christine Garcia presents with persistent anxiety, irritability, and anger despite current medication regimen, reporting no significant improvement in symptoms. Bipolar Disorder Assessment: Patient reports ongoing anxiety, irritability, and anger with a short fuse despite current medication regimen. No significant improvement noted since last visit. 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 Sleep and energy levels are stable, with 8-9 hours of sleep nightly and feeling rested upon waking. Appetite has increased slightly, attributed to Depakote. No signs of depression or carlin reported. Current medications include Depakote (delayed release 250, one tablet in the morning, 2 at night), Vraylar (reduced to 4.5 mg), Trintellix (20 mg), and mirtazapine (7.5 mg at bedtime). Patient denies missing any doses. Recent adjustment to Entresto (sacubitril + valsartan) due to lightheadedness upon standing. Plan: - Decrease Trintellix to 10 mg daily - Continue all other psychiatric medications at current doses: - Follow up in 3-4 weeks - Laboratory tests to be ordered: - Thyroid function - CBC - CMP - Lipid panel - Depakote level Medical Decision Making Christine Garcia is a patient with a history of psychiatric issues presenting with persistent anxiety, irritability, and anger despite current medication regimen. The patient's symptoms of increased anxiety, restlessness, and irritability without significant mood changes or depression suggest a possible overactivation from the current medication combination. The recent job change with the [employer], while managed well, may be contributing to increased stress levels. The decision to reduce Trintellix from 20mg to 10mg is based on the hypothesis that the patient may be too activated, potentially due to the combination of medications. This adjustment aims to address the persistent anxiety and irritability while maintaining mood stability, as the Vraylar appears to be effectively preventing manic episodes. The recent change in Entresto dosing due to lightheadedness upon standing was also considered in the overall clinical picture. Thyroid function, CBC, CMP, lipid panel, and Depakote levels were ordered to rule out any underlying medical conditions contributing to the patient's symptoms and to monitor medication effects. * Procedure Codes: 9 6127 BEHAV ASSMT W/SCORE & DOCD/STAND [id number] TOBACCO [id number] VISIT COMPLEXITY INHERENT TO ONGOING CARE RELATED TO A PATIENT'S SINGLE, SERIOUS CONDITION OR A COMPLEX CONDITION * Preventive Medicine: Screenings: D epression screening Have you had a recent depression screening? Y es * Follow Up: 3 Weeks Billing Information: * Visit Code: 80187 OFFICE OUTPATIENT VISIT 25 MINUTES DETAILED HISTORY AND EXAM/MODERATE MEDICAL DECISION MAKING. * Procedure Codes: 97589 BEHAV ASSMT W/SCORE & DOCD/STAND INSTRUMENT. 1036F TOBACCO NON-USER. G2211 VISIT COMPLEXITY INHERENT TO ONGOING CARE RELATED TO A PATIENT'S SINGLE, SERIOUS CONDITION OR A COMPLEX CONDITION. * Sign off status: Completed true * Provider: Noelle Monaco Date: 0 06/09/2025 Generated for Joe montoya/Alexandra/Ezra on: 06/10/2025 10:58 AM CDT
--- OUTSIDE RECORDS SUMMARY | 2025-06-10 10:58 | XMS_ITS | Encounter Summary ---
Author Organization [facility] Address [address] [facility] [place] [address] Care Team Providers Care Middle Stitcher Name Role Phone Ahmet Mejía MD Primary Care Provider Vince Hermosillo DO Unavailable Vince Hermosillo DO Primary Care Provider Vince Hermosillo DO Primary Care Provider Pcp, Unknown Primary Care Provider Unavailsimona e Ragini Ayala MD Primary Care Provider Wenceslao Kohli DO Primary Care Provider [phone] Jerman Hamilton MD Primary Care Provider Encounter Details Date Type Department Care Team (Late st Contact Info) Description 12/15/2010 [facility] Outpatient Visit [facility] Medical [facility] - Family Medicine [address] [place] [address] Ahmet Mejía MD [address] [place] [address] Social History Tobacco Use Types Packs/Day Years Used Date Smoking Tobacco: Never Smokeless Tobacco: Never Alcohol Use Standard Drinks/Week Comments No 0 (1 standard drink = 0.6 oz pur e alcohol) rarely Sex and Gender Information Value Date Recorded Sex Assigned at Not on file 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 Gender Identity Not on file Sexual Orientation Not on file 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 file Not on file documented as of this encounter Plan of Treatment Not on file documented as of this encounter Visit Diagnoses Not on filedocumented in this encounter Care Teams Middle Stitcher Relationship Specialty Start Date End Date Ahmet Mejía MD [address] [place] [address] PCP - General 07/15/10 04/16/11 Vince Hermosillo, DO [address] [place] [address] PCP - General 01/08/12 03/10/13 Vince Hermosillo, DO [address] [place] [address] PCP - General Family Medicine 03/11/13 11/16/13 Pcp, Unknown [place] [address] PCP - General 11/17/13 Ragini Ayala MD [place] [address] PCP - General Internal Medicine 04/13/14 02/19/18 Wenceslao Kohli, DO [place] [address] PCP - General Emergency Medicine 02/20/18 03/17/20 Jerman Hamilton MD [address] [address] PCP - General Internal Medicine 03/18/20 Vince Hermosillo, DO [address] [place] [id number] Family Medicine 09/27/11 02/19/18 documented as of this encounter
--- OUTSIDE RECORDS SUMMARY | 2025-06-10 10:58 | XMS_ITS | Clinical Summary ---
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
--- OUTSIDE RECORDS SUMMARY | 2025-06-10 10:58 | XMS_ITS | Clinical Summary ---
Author Organization [facility] Address [address] [place] [address] Care Team Providers Care Talent Manager Name Role Phone Jerman Hamilton MD Primary Care Provider [phone] Source Comments [facility],non-owned Affiliates and Associated Physician Practices is amultiple site organization consisting of ambulatory clinics and hospital sitesin [place], [place], [place] and [place]. This disclosure is being madepursuant to the Care Everywhere program and may not contain all information available regarding this patient. Last updated 18.[facility] Allergies Active Allergy Reactions Criticality Noted Date [...] different from the original. EP--Dr. Hal Wong Electronic Components Assembler - Dr. Thuan Hart Problem Noted Date Diagnosed Date LBBB (left bundle branch block) 08/03/2015 Paroxysmal atrial fibrillation 08/03/2015 Essential hypertension, benign 08/03/2015 Pure hypercholesterolemia 08/03/2015 Non morbid obesity due to excess calories 2014 Dietary counseling 08/03/2015 Bi-V Defibrillator 06/22/2012 Overview (03/07/2016): 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 Pulse 70 08/16/2020 2:05 PM 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 Temperature 36.2 C (97.1 F) 03/07/2016 8:29 AM CDT Respiratory Rate 12 08/16/2020 2:05 PM 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 Oxygen Saturation 97% 03/07/2016 12:00 PM CDT Inhaled Oxygen Concentration - - Weight 73 kg (161 lb) 08/16/2020 2:05 PM 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 Height 185.4 cm (6' 1) 08/16/2020 2:05 PM 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 Body Mass Index 21.24 08/16/2020 2:05 PM 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 Plan of Treatment Health Maintenance Due Date [...] COVID-19 VACCINE (1 - 2023-2 5 season) 2025 INFLUENZA VACCINE (#1) 2025 07/06/2020 HIV SCREENING [...] this topic Medical Devices Implanted Type Area Fourdrinier Machine Operator Device Identifier Shelf Expiration Date Model / Serial / Lot Alloquent Corticocanc S 8.0mm Implanted:Qty: 1 on 03/11/2013 by Roberto Jaime MD at [facility] [place]: Spine Cervical [employer] 04/24/2015 30-5008 / / [id number] Alloquent Corticocanc S 8.0mm Implanted:Qty: 1 on 03/11/2013 by Roberto Jaime MD at [facility] [place]/A: Spine Cervical [employer] 05/29/2015 30-5008 / / [id number] 37mm Luxe Acp Implanted:Qty: 1 on 03/11/2013 by Roberto Jaime MD at [facility] [place] Spine Cervical [employer] Spine [id number] / / Description:Implanted from s terile tray. 14mm Fixed Screws Implanted:Qty: 6 on 03/11/2013 by Roberto Jaime MD at [facility] [place] Spine Cervical [employer] Spine [id number] / / Description:Implanted from s terile tray. Procedures Procedure Name Priority Date/Time Associated Diagnosis Comments HIV-1 HIV-2 ANTIBODY RAPID AM Draw 07/22/2010 3:35 AM CDT from Last 3 Months or Most Recently Relevant to Health Maintenance Results * HIV-1 HIV-2 ANTIBODY RAPID (07/22/2010 3:35 AM CDT) HIV-1/HIV-2 Rapid Antibody Negative [facility] BLOOD SPECIMEN / Unknown 07/22/2010 3:35 AM CDT 07/22/2010 4:20 AM CDT Shane Reyna MD LAB - CHEMISTRY ORDERABLES Final Result [facility] [address] [address] from Last 3 Months or Most Recently Relevant to Health Maintenance Insurance [address] [place] [address] MEDICAID - [facility] [facility] MANAGED MEDICARE ADV [id number]IC[facility] ADV SELF PAY NO INSURANCE Member Subscriber Plan / Payer (Ef fective for All Dates) Name:Jamie Garcia J Member ID:Not on file Relation to Subscriber:Self Name:Jamie Garcia Subscriber ID:Not on file Payer ID:Not on file Group ID:Not on file Type:Self Pay Address: [place], [place] Advance Directives Documents on File Type Date Recorded Patient Buncher Hand Expl anation Adv Directive/Living Will/POA 01/22/2011 1:10 [...] 7:28 PM 02/06/2012 4:05 PM Care Teams Talent Manager Relationship Specialty Start Date End Date Jerman Hamilton MD [address] [address] PCP - General Internal Medicine 03/18/20
--- OUTSIDE RECORDS SUMMARY | 2025-06-10 10:59 | XMS_ITS | Patient Health Record ---
Author Organization [facility] Address [address] [place] [address] Care Team Providers Care Full Roll Inspector Name Role Phone Alfonso ALSTON, Jerman Primary Care Provider Ramona Zepeda Unavailable [phone] Allergies Allergen (clinical drug ingredient) Drug/Non Drug Allergy documented on EMR Reaction Allergy Type Onset Date Status menthol Icy Hot Unknown Drug Allergy 12/27/2023 Active Reason For Referral No Information Medications Medication SIG (Take, Route, Frequency, Duration) Notes Start Date End Date Status Eliquis 5 MG Tablet Oral 12/27/2023 Active TRUEPLUS LANCETS 33 gauge EACH MISCELLANEOUS *Reorder from [employer] for eRx and Interaction Alerts* 12/27/2023 Active Mirtazapine 7.5 MG Tablet 1 tablet at bedtime Oral Once a day; Duration: 30 days 06/09/2025 Active Entresto 24-26 MG Tablet Oral 12/27/2023 Active Pantoprazole Sodium 40 MG Tablet Delayed Release Oral 12/27/2023 Active Trintellix 10 MG Tablet 1 tablet Orally Once a day; Duration: 30 days decreasing, DC 20 mg 06/09/2025 Active Metoprolol Succinate ER 50 MG Tablet Extended Release 24 Hour Oral 12/27/2023 Active Montelukast Sodium 10 MG Tablet Oral 12/27/2023 Active True Metrix Blood Glucose Test Strip In Vitro 12/27/2023 Active Atorvastatin Calcium 20 MG Tablet Oral 12/27/2023 Active Synjardy XR 5-1,000 mg Tablet Extended Release 24 Hour Oral *Pick strength-form from Silvigenan for eRX* 12/27/2023 Active Vraylar 4.5 mg Capsule 1 tablet Oral daily; Duration: 30 days 06/09/2025 Active Cyanocobalamin 1000 MCG/ML Solution Injection 12/27/2023 Active Divalproex Sodium 250 MG Tablet Delayed Release 1 capsule every morning, 2 capsules at bedtime Orally see sign; Duration: 30 days 06/09/2025 Active Immunizations Vaccine Route Administration Date Status Comme nts Influenza virus vaccine, quadrivalent (IIV4), split virus, 0.25 mL dosage Unknown 07/12/2019 Administered Novel [id number], preservative free Unknown 07/06/2020 Administered Pfizer Biontech [...] No; h x of alcoholism Section Notes: Substance Use Do you or [...] Do you have a medical power of car salter?: No Other Education: 12 Family history of heart disease?: Yes (Notes: father, mother and grand parents) High blood pressure: Yes High Cholesterol: Yes Past steroid/HgH use?: No Gender Identity and LGBTQ Identity Gender identity: Identifies as Male Assigned sex at : Male Sexual orientation: Straight or heterosexualborn and rasied in [facility], i move to [place] in 1991 we moved to [place] as my brother's son live in [place], 3 time, seperated now 2009, divorce got [...] Do you have a medical power of car salter?: No Other Education: 12 Family history of heart disease?: Yes (Notes: father, mother and grand parents) High blood pressure: Yes High Cholesterol: Yes Past steroid/HgH use?: No Gender Identity and LGBTQ Identity Gender identity: Identifies as Male Assigned sex at : Male Sexual orientation: Straight or heterosexualborn and rasied in [facility], i move to [place] in 1991 we moved to [place] as my brother's son live in [place], 3 time, seperated now 2009, divorce got [...] Do you have a medical power of car salter?: No Other Education: 12 Family history of heart disease?: Yes (Notes: father, mother and grand parents) High blood pressure: Yes High Cholesterol: Yes Past steroid/HgH use?: No Gender Identity and LGBTQ Identity Gender identity: Identifies as Male Assigned sex at : Male Sexual orientation: Straight or heterosexualborn and rasied in [facility], i move to [place] in 1991 we moved to [place] as my brother's son live in [place], 3 time, seperated now 2009, divorce got screwed up, hx of illicit drug use: Cocaine, Meth, Heroin born and rasied in [facility], i move to [place] in 1991 we moved to [place] as my brother's son live in [place], 3 time, seperated now 2009, divorce got screwed up, hx of illicit drug use: Cocaine, Meth, Heroin born and rasied in [facility], i move to [place] in 1991 we moved to [place] as my brother's son live in [place], 3 time, seperated now 2009, divorce got screwed up, hx of illicit drug use: Cocaine, Meth, Heroin born and rasied in [facility], i move to [place] in 1991 we moved to [place] as my brother's son live in [place], 3 time, seperated now 2009, divorce got screwed up, Problems Problem Type SNOMED Code ICD Code Onset Dates Problem Status W/U Status Risk Notes Problem Manic bipolar I disorder (03382626) Bipolar disorder, current episode hypomanic (F31.0) Active confirmed Problem Depressed bipolar I disorder in remission (22480677) Bipolar disorder, in partial remission, most recent episode depressed (F31.75) Active confirmed Problem Generalized anxiety disorder (29532880) Generalized anxiety disorder (F41.1) 4 Active confirmed Problem Primary insomnia (1659340) Primary insomnia (F51.01) 4 Active confirmed Problem Atrial fibrillation (25157325) Unspecified atrial fibrillation (I48.91) 4 Active confirmed Problem Nondependent alcohol abuse in remission (416242681) History of alcohol abuse (F10.11) Active confirmed Vital Signs Heart Rate 91 /min 06/09/2025 Height-cm 185.42 cm 06/09/2025 Blood pressure diastolic 77 mm Hg 06/09/2025 Weight-kg 76.66 kg 06/09/2025 Height 73.00 in 06/09/2025 Blood pressure systolic 108 mm Hg 06/09/2025 Weight 169 lbs 06/09/2025 BMI 22.29 kg/m2 06/09/2025 Encounters Encounter Location Date Provider Diagnosis [facility] [address] [address] 09/04/2024 Ramona Monaco Bipolar I disorder F31.9 ; Primary insomnia F51.01 and Generalized anxiety disorder F41.1 [facility] [address] [address] 12/03/2024 Ramona Monaco Generalized anxiety disorder F41.1 ; Bipolar disorder, in partial remission, most recent episode depressed F31.75 ; Primary insomnia F51.01 ; Encounter for screening for cardiovascular disorders Z13.6 and Encounter for screening for depression Z13.31 [facility] [address] [facility] [address] [place] [address] 04/06/2025 Ramona Monaco Bipolar disorder, current episode hypomanic F31.0 ; Primary insomnia F51.01 and Generalized anxiety disorder F41.1 [facility] [address] [address] 05/05/2025 Ramona Monaco Bipolar disorder, current episode hypomanic F31.0 ; Primary insomnia F51.01 and Generalized anxiety disorder F41.1 [facility] [address] [place] [address] 06/09/2025 Ramonamee Monaco Bipolar disorder, current episode hypomanic F31.0 ; Generalized anxiety disorder F41.1 ; Irritability R45.4 ; Primary insomnia F51.01 and Other assisted (current) drug therapy Z79.899 [facility] [address] [facility] [address] [place] [address] 02/17/2025 Ramona Monaco [facility], [facility] [address] [facility] [address] [place] [address] 02/28/2025 Ramona Monaco [facility], [facility] [address] [facility] [address] [place] [address] 03/01/[facility] [address] [facility] [address] [place] [address] 06/04/2025 [facility] [address] [facility] [address] [place] [address] 06/04/2025 [facility] [address] [facility] [address] [place] [address] 06/04/2025 Ramona Monaco Assessments Encounter Date Diagnosis (ICD Code) Assessment Notes Treatment Notes Treatment Clinical Notes Section Notes 05/05/2025 Bipolar disorder, current episode hypomanic (ICD-10 - F31.0) 04/06/2025 Bipolar disorder, current episode hypomanic (ICD-10 - F31.0) 05/05/2025 Primary insomnia (ICD-10 - F51.01) 06/09/2025 Bipolar disorder, current episode hypomanic (ICD-10 - F31.0) 06/09/2025 Generalized anxiety disorder (ICD-10 - F41.1) 09/04/2024 [...] 12/03/2024 Generalized anxiety disorder (ICD-10 - F41.1) 04/06/2025 Primary insomnia (ICD-10 - F51.01) 06/09/2025 Irritability (ICD-10 - R45.4) 12/03/2024 Primary insomnia (ICD-10 - F51.01) 09/04/2024 [...] medication management. 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 Mood DisorderAssessment : Patient reports stable mood with current medication regimen. No significant changes in mood or concerning symptoms reported since last visit. Patient mentions a slight increase in spending last month but attributes it to special occasions and planned events. Overall, the patient appears to be managing well with current treatment.Plan:- Continue Trintellix 20 mg PO daily- Continue Vraylar 4.5 mg PO daily - Continue mirtazapine 15 mg daily at bedtime- Adjust prescription to 30-day supply for all medications due to insurance requirements- Follow up in 4 months- Patient instructed to call if any concerns arise before next appointment AnxietyAssessment: Patient reports anxiety is well-controlled with current treatment. He acknowledges some worry, which he considers normal and manageable. Patient is using healthy coping mechanisms, including involvement with [place] activities and regular exercise at the gym.Plan:- Continue current medication regimen (as listed above)- Encourage continuation of current coping strategies, including [place] involvement and regular exercise 04/06/2025 Other Christine [...] medication regimen included Trintellix 20 mg for depression/anxiety , mirtazapine at bedtime, and Vraylar 4.5 mg [...] Monitor tremor and reassess at follow-up appointment 05/05/2025 Other Christine Garcia, a patient with a history of bipolar disorder, presents with worsening anxiety, irritability, and anger issues, particularly while driving. Bipolar Disorder with Anxiety Assessment: Patient reports increased anxiety and irritability, with a short fuse that has worsened over the past couple of months. Anxiety score has increased from 4 in November to 9 currently. Recent increase in Vraylar dosage may be contributing to these symptoms, as it can have activating side effects. Patient denies feeling manic but acknowledges irritability. Sleep patterns are variable. No current suicidal ideation. Patient recently took a more stressful position at [employer], which may be exacerbating symptoms. Plan: - Decrease Vraylar dose (specific dose adjustment not mentioned) - Start Depakote 250mg PO in the morning and 500mg PO at night - Informed patient of potential side effects including initial tiredness and brain fog - Advised patient that lower doses may have less risk of weight gain - Continue Trintellix 20mg - Continue mirtazapine - Follow-up appointment in 3-4 weeks - Instructed patient to report if feeling excessively tired or experiencing other concerning side effects Medical Decision Making Christine Garcia is a patient with a history of bipolar disorder presenting with worsening anxiety and irritability. The patient's anxiety has increased from a score of 4 in November to 9 currently, coinciding with an increase in Vraylar dosage and a more stressful job position. The clinician considers that the increased Vraylar dose may be causing activating side effects, contributing to the patient's anxiety and irritability. Given the patient's history of bipolar disorder and previous positive response to mood stabilizers, the decision is made to reintroduce Depakote while reducing Vraylar. This change aims to better manage the patient's carlin symptoms while potentially alleviating the anxiety and irritability. The clinician acknowledges the potential side effects of Depakote, including initial tiredness and brain fog, and plans to start with a low dose to minimize these effects while assessing the patient's response. 06/09/2025 Other Christine Garcia presents with persistent anxiety, irritability, and anger despite current medication regimen, reporting no significant improvement in symptoms. Bipolar Disorder Assessment: Patient reports ongoing anxiety, irritability, and anger with a short fuse despite current medication regimen. No significant improvement noted since last visit. 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 The recent job change with the [employer], while managed well, may be contributing to [...] to monitor medication effects. Plan Of Treatment Pending Test Test Name Order Date LIPID PANEL, STANDARD (7600) 06/09/2025 THYROID PANEL WITH TSH (7444) 06/09/2025 COMPREHENSIVE METABOLIC PANEL (76885) CBC (INCLUDES DIFF/PLT) (6399) HEMOGLOBIN A1c (496) 06/09/2025 TESTOSTERONE, TOTAL, MALES (ADULT), IA ( 873) 06/09/2025 VALPROIC ACID (916) 06/09/2025 Next Appt Details Provider Name:Ramona nance, 07/12/2025 09:00:00 AM, [address], [facility] [address], [place], [address], Insurance Providers Payer Name Payer Address Payer Phone Subscriber Number Group Number Insured Name Patient Relationship to Insured Coverage Start Date Coverage End Date [employer] Medicare Replacement/ Advantage - Ppo [address] [address] [place] [address] [id number] CHRISTINE GARCIA Self - patient is the insured Medical (General) History Medical History History ICD Code Problems: Atrial fibrillation Bipolar disorder Generalized anxiety disorder History of alcoholism Primary insomnia Surgical History Surgery Date(Month/Year) Neurosurgery Heart surgery 10/12/2021 Neurosurgery 12/22/2012 Heart surgery 05/24/2010 back stimulator 10/2023
[2025-06-10 11:12] LABS: Hematocrit 45.8 % (42.0-52.0); Hemoglobin 14.3 g/dL (14.0-18.0); Immature Granulocyte Percent A 0.4 % (0-0.5); Lymphocytes Absolute Auto 0.73 K/mm3 (0.9-3.2); Mean Corpuscular HGB Conc 31.2 g/dl (32-36); Mean Corpuscular Hemoglobin 27.6 pg (26-34); Mean Corpuscular Volume 88.4 fl (80-100); Nucleated Red Blood Cells Absolute Auto 0.000 K/mm3 (0.0-0.012); Nucleated Red Blood Cells Perc 0.0 % (0.0-0.2); Platelet Count Result 119 k/mm3 (150-375); Red Blood Count 5.18 M/mm3 (4.6-6.20); White Blood Count 5.1 K/mm3 (4.5-10.0)
[2025-06-10 11:28] LABS: Hemoglobin A1C 5.4 % (<5.7)
[2025-06-10 11:42] LABS: Alanine Aminotransferase 37 U/L (6-50); Albumin Level 4.5 g/dL (3.5-5.1); Alkaline Phosphatase 51 U/L (38-126); Anion Gap 9 mmol/L (4-12); Aspartate Amino Transferase 40 U/L (17-59); Bilirubin,Total 0.5 mg/dL (0.2-1.3); Blood Urea Nitrogen 13 mg/dL (9-20); Calcium 10.1 mg/dL (8.4-10.2); Carbon Dioxide 32 mmol/L (22-30); Chloride 98 mmol/L (98-107); Cholesterol 142 mg/dL (0-200); Estimated Glomerular Filt Rate > 60; Glucose 87 mg/dL (65-110); HDL Direct 40 mg/dL; Potassium 4.1 mmol/L (3.4-5.0); Sodium 139 mmol/L (137-145); Total Protein 7.6 g/dL (6.3-8.2); Triglycerides 62 mg/dL (<150)
[2025-06-10 12:04] LABS: Thyroid Stimulating Hormone Reflex 2.500 uIU/mL (0.465-4.68)
[2025-06-17 13:09] LABS: Free Testosterone (Direct) 11.3 pg/mL (7.2-24.0)
== END 2025-06-10 10:18 | disposition home or self-care (01) ==
PROVIDERS: PCP Internal Medicine
DX: R45.4 Irritability and anger (principal); Z79.899 Other long term (current) drug therapy
CPT/HCPCS: 36415; 80053; 80061; 80164; 83036; 84402; 84403; 84443; 85025

== ENCOUNTER 2025-09-17 12:54 | Outpatient (CLI) | payer MEDICARE, SELFPAY ==
--- OUTSIDE RECORDS SUMMARY | 2012-04-14 04:29 | XMS_ITS | Continuity of Care Document ---
Author Organization [facility] Address [address] [place] [id number] Phone Care Team Providers Care Certified Credit Counselor Name Role Phone No Information Unavailable Unavailable Advance Directives Directive Yes / No Effective Date File Name No Information Encounters Encounter Description Practice Location Reason(s) For Visit Diagnoses Date Provider Providers Copied on Encounter [facility], [address] [place] [address], [id number], [place] tel:[phone] No Information No Information Family History Family Member Type Diagnosis Age At Onset No Information Payers Payer name Insurance type Covered democrat ID Authoriza tion(s) No Information Social History Type Description Quantity Date Captured Comments Sex Male Smoking Status No Information Chief Complaint And Reason For Visit No Information Reason For Referral Reason For Referral No Information History Of Present Illness Encounter Date Complaint History Of Prese nt Illness No Information Functional Status Date Functional Assessmen t No Information Instructions Date Instruction Additional Infor mation No Information Assessments Type Assessment Date No Information Patient Care Teams Name Effective Dates (start - stop) Status Members No Information
--- OUTSIDE RECORDS SUMMARY | 2013-10-09 18:00 | XMS_ITS | Continuity of Care Document ---
Author Organization [facility] Address [address] [facility] [place] [address] Phone Care Team Providers Care Broadcast Operations Director Name Role Phone Nubia Branden Unavailable Unavailable Allergies, Adverse Reactions, Alerts Substance Reaction Status Criticality No Known allergies Medications Medication Instructions Dosage Effective Dates (start - stop) Status Comments amiodarone 200 mg tablet take 1 tablet by oral route 2 times every day 200 MG - Active carvedilol 3.125 mg tablet take 1 tablet by oral route 2 times every day with food 3.125 MG - Active cyanocobalamin (vitamin B-12) 1,000 mcg/mL Injection inject 1 milliliter by intramuscular route every month 1000 MCG - Active digoxin 0.25 mg/5 mL (5 mL) Oral Soln take 5 milliliter by oral route every day - Active doxepin 75 mg capsule take 1 capsule by oral route every day at bedtime 75 MG - Active gabapentin 300 mg capsule take 1 capsule by oral route 3 times every day 300 MG - Active hydrocodone 5 mg-acetaminophen 325 mg tablet take 1 tablet by oral route every 6 hours as needed for pain 1.00 tablet - Active hydroxyzine HCl 10 mg tablet - Active Lovaza 1 gram capsule take 2 capsule by oral route 2 times every day 2 G - Active Nexium 40 mg capsule,delayed release take 1 capsule by oral route every day 40 MG - Active lamotrigine 150 mg tablet take 1 tablet by oral route 2 times every day 150 MG - Active venlafaxine 25 mg tablet take 1 tablet by oral route 3 times every day with food 25 MG - Active olanzapine 10 mg tablet take 1 tablet by oral route every day 10 MG - Active Procedures Procedure Date SUBSEQUENT HOSPITAL CARE SUBSEQUENT HOSPITAL CARE Advance Directives Directive Yes / No Effective Date File Name No Information Encounters Encounter Description Practice Location Reason(s) For Visit Diagnoses Date Provider SUBSEQUENT HOSPITAL CARE [facility], [address] [facility], [place], [place], [facility], tel:[phone] [facility] No Information Nubia Otero. [address] [place] [address], [place] [address], [place], [place], [address] [place] [address]. tel:[phone] [facility], [address] [facility], [place], [place], [facility], tel:[phone] [facility] Seizure / Convulsions Nubia Otero. [address] [place] [address], [address] tel:[phone] [facility], [address] [place] [address], [place], [facility], tel:[phone] [facility] No Information Nubia Otero. [address] [place] [address], [address], [facility], . tel:[phone] [facility], [address] [facility], [place], [place], [facility], tel:[phone] [facility] No Information Nubia Otero. [address] [place] [address], [place] [address], . tel:[phone] [facility], [address] [facility], [place], [place], [facility], tel:[phone] [facility] No Information Nubia Otero. [facility], [address] tel:[phone] Family History Family Member Type Diagnosis Age At Onset No Information Payers Payer name Insurance type Covered constitution party ID Authoriza tion(s) [place] [id number] Medicaid [id number] Social History Type Description Quantity Date Captured Comments Sex Male Smoking Status No Information Chief Complaint And Reason For Visit No Information History Of Present Illness Encounter Date Complaint History Of Prese nt Illness No Information Instructions Date Instruction Additional Infor mation No Information Assessments Type Assessment Date No Information
--- OUTSIDE RECORDS SUMMARY | 2025-09-17 12:58 | XMS_ITS | Clinical Summary ---
Author Organization [facility] Address [address] [address] Phone Care Team Providers Care Certified Pathology Assistant Name Role Phone Jerman Hamilton MD Primary Care Provider [phone] Allergies Active Allergy Reactions Criticality Noted Date [...] 07/06/2020 Insurance [employer] MEDICARE ADVANTAGE Care Teams Certified Pathology Assistant Relationship Specialty Start Date End Date Jerman Hamilton MD [address] [place] [address] PCP - General Internal Medicine 06/07/21
--- OUTSIDE RECORDS SUMMARY | 2025-09-17 12:58 | XMS_ITS | Encounter Summary ---
Author Organization [facility] Address [address] [facility] [place] [address] Care Team Providers Care Head Of Loss Prevention Name Role Phone Ahmet Mejía MD Primary Care Provider Vince Hermosillo DO Unavailable Vince Hermosillo DO Primary Care Provider Vince Hermosillo DO Primary Care Provider Pcp, Unknown Primary Care Provider Unavailsimona e Ragini Ayala MD Primary Care Provider Wenceslao Kohli DO Primary Care Provider Jerman Hamilton MD Primary Care Provider Encounter Details Date Type Department Care Team (Late st Contact Info) Description 12/15/2010 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 file Not on file documented as of this encounter Plan of Treatment Not on file documented as of this encounter Visit Diagnoses Not on filedocumented in this encounter Care Teams Head Of Loss Prevention Relationship Specialty Start Date End Date Ahmet Mejía MD [address] [place] [address] PCP - General 07/15/10 04/16/11 Vince Hermosillo, DO [address] [place] [address] PCP - General 01/08/12 03/10/13 Vince Hermosillo, DO [address] [place] [address] PCP - General Family Medicine 03/11/13 11/16/13 Pcp, Unknown [place] [address] PCP - General 11/17/13 Ragini Ayala MD [place] [address] PCP - General Internal Medicine 04/13/14 02/19/18 Wenceslao Kohli, [place] [address] PCP - General Emergency Medicine 02/20/18 03/17/20 Jerman Hamilton MD [address] [address] PCP - General Internal Medicine 03/18/20 Vince Hermosillo, DO [address] [place] [address] Family Medicine 09/27/11 02/19/18 documented as of this encounter
--- OUTSIDE RECORDS SUMMARY | 2025-09-17 12:58 | XMS_ITS | Patient Health Record ---
Author Organization [facility] Address [address] [place] [address] Care Team Providers Care Tool Storage Attendant Name Role Phone Alfonso ALSTON, Jerman Primary Care Provider Unavailab Jennyfer Granger Unavailable [phone] Ramona Monaco Unavailable [phone] Allergies Allergen (clinical drug ingredient) Drug/Non Drug Allergy documented on EMR Reaction Allergy Type Onset Date Status menthol Icy Hot Unknown Drug Allergy 12/27/2023 Active Reason For Referral No Information Medications Medication SIG (Take, Route, Frequency, Duration) Notes Start Date End Date Status Propranolol HCl 10 MG Tablet 1 tablet on an empty stomach Orally twice a day; Duration: 30 days 08/25/2025 Active Vraylar 4.5 mg Capsule 1 tablet Oral daily; Duration: 30 days Active Mirtazapine 7.5 MG Tablet 1 tablet at bedtime Oral Once a day; Duration: 30 days 06/09/2025 Active Trintellix 10 MG Tablet 1 tablet Orally Once a day; Duration: 30 days 06/09/2025 Active Atorvastatin Calcium 20 MG Tablet Oral 12/27/2023 Active Pantoprazole Sodium 40 MG Tablet Delayed Release Oral 12/27/2023 Active True Metrix Blood Glucose Test Strip In Vitro 12/27/2023 Active Montelukast Sodium 10 MG Tablet Oral 12/27/2023 Active Divalproex Sodium 250 MG Tablet Delayed Release 1 capsule every morning, 2 capsules at bedtime Orally see sign; Duration: 30 days 06/09/2025 Active Cyanocobalamin 1000 MCG/ML Solution Injection 12/27/2023 Active Entresto 24-26 MG Tablet Oral 12/27/2023 Active Eliquis 5 MG Tablet Oral 12/27/2023 Active TRUEPLUS LANCETS 33 gauge EACH MISCELLANEOUS *Reorder from [facility] for eRx and Interaction Alerts* 12/27/2023 Active Metoprolol Succinate ER 50 MG Tablet Extended Release 24 Hour Oral 12/27/2023 Active Synjardy XR 5-1,000 mg Tablet Extended Release 24 Hour Oral *Pick strength-form from [facility] for eRX* 12/27/2023 Active Immunizations Vaccine Route Administration Date Status Comme nts Influenza virus vaccine, quadrivalent (IIV4), split virus, 0.25 mL dosage Unknown 07/12/2019 Administered Novel [id number], preservative free Unknown 07/06/2020 Administered Pfizer Biontech [...] Do you have a medical power of starter mechanic?: No Other Education: 12 Family history of heart disease?: Yes (Notes: father, mother and grand parents) High blood pressure: Yes High Cholesterol: Yes Past steroid/HgH use?: No Gender Identity and LGBTQ Identity Gender identity: Identifies as Male Assigned sex at : Male Sexual orientation: Straight or heterosexualborn and rasied in [facility], i move to [place] in 1991 we moved to [place] as my brother's son live in [place], 3 time, seperated now 2009, divorce got [...] Do you have a medical power of starter mechanic?: No Other Education: 12 Family history of heart disease?: Yes (Notes: father, mother and grand parents) High blood pressure: Yes High Cholesterol: Yes Past steroid/HgH use?: No Gender Identity and LGBTQ Identity Gender identity: Identifies as Male Assigned sex at : Male Sexual orientation: Straight or heterosexualborn and rasied in [facility], i move to [place] in 1991 we moved to [place] as my brother's son live in [place], 3 time, seperated now 2009, divorce got [...] Do you have a medical power of starter mechanic?: No Other Education: 12 Family history of heart disease?: Yes (Notes: father, mother and grand parents) High blood pressure: Yes High Cholesterol: Yes Past steroid/HgH use?: No Gender Identity and LGBTQ Identity Gender identity: Identifies as Male Assigned sex at : Male Sexual orientation: Straight or heterosexualborn and rasied in [facility], i move to [place] in 1991 we moved to [place] as my brother's son live in [place], 3 time, seperated now 2009, divorce got screwed up, hx of illicit drug use: Cocaine, Meth, Heroin born and rasied in [facility], i move to [place] in 1991 we moved to [place] as my brother's son live in [place], 3 time, seperated now 2009, divorce got screwed up, hx of illicit drug use: Cocaine, Meth, Heroin born and rasied in [facility], i move to [place] in 1991 we moved to [place] as my brother's son live in [place], 3 time, seperated now 2009, divorce got screwed up, hx of illicit drug use: Cocaine, Meth, Heroin born and rasied in [facility], i move to [place] in 1991 we moved to [place] as my brother's son live in [place], 3 time, seperated now 2009, divorce got screwed up, hx of illicit drug use: Cocaine, Meth, Heroin born and rasied in [facility], i move to [place] in 1991 we moved to [place] as my brother's son live in [place], 3 time, seperated now 2009, divorce got screwed up, Substance use: Sober from drugs since and alcohol for five years 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[employer], 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 [employer] Living situation: Lives with girlfriend Problems Problem Type SNOMED Code ICD Code Onset Dates Problem Status W/U Status Risk Notes Problem Manic bipolar I disorder (41472637) Bipolar disorder, current episode hypomanic (F31.0) Active confirmed Problem Bipolar I disorder (771661267) Bipolar disorder, in partial remission, most recent episode hypomanic (F31.71) Active confirmed Problem Generalized anxiety disorder (95037592) Generalized anxiety disorder (F41.1) 4 Active confirmed Problem Primary insomnia (4229150) Primary insomnia (F51.01) 4 Active confirmed Problem History of alcohol use disorder (situation) (5481781915) History of alcohol abuse (F10.11) Active confirmed Vital Signs Heart Rate 80 /min 08/25/2025 Height-cm 185.42 cm 08/25/2025 Blood pressure diastolic 83 mm Hg 08/25/2025 Weight-kg 77.11 kg 08/25/2025 Height 73.00 in 08/25/2025 Blood pressure systolic 125 mm Hg 08/25/2025 Weight 170 lbs 08/25/2025 BMI 22.43 kg/m2 08/25/2025 Encounters Encounter Location Date Provider Diagnosis [facility] [address] [place] [address] 12/03/2024 Ramona Monaco Generalized anxiety disorder F41.1 ; Bipolar disorder, in partial remission, most recent episode depressed F31.75 ; Primary insomnia F51.01 ; Encounter for screening for cardiovascular disorders Z13.6 and Encounter for screening for depression Z13.31 [facility] [address] [place] [address] 04/06/2025 Ramona Monaco Bipolar disorder, current episode hypomanic F31.0 ; Primary insomnia F51.01 and Generalized anxiety disorder F41.1 [facility] [address] [place] [address] 05/05/2025 Ramona Monaco Bipolar disorder, current episode hypomanic F31.0 ; Primary insomnia F51.01 and Generalized anxiety disorder F41.1 [facility] [address] [place] [address] 06/09/2025 Ramona Monaco Bipolar disorder, current episode hypomanic F31.0 ; Generalized anxiety disorder F41.1 ; Irritability R45.4 ; Primary insomnia F51.01 and Other emt intermediate (current) drug therapy Z79.899 [facility] [address] [place] [address] 07/12/2025 Ramona Monaco Bipolar disorder, in partial remission, most recent episode hypomanic F31.71 ; Generalized anxiety disorder F41.1 and Primary insomnia F51.01 [facility] [address] [place] [address] 08/25/2025 Jennyfer Qureshi Generalized anxiety disorder F41.1 ; Tremor, unspecified R25.1 ; Bipolar disorder, in partial remission, most recent episode hypomanic F31.71 ; History of alcohol abuse F10.11 and Primary insomnia F51.01 [facility], [facility] [address] [place] [address] 02/17/2025 Ramona [facility], [facility] [address] [place] [address] 02/28/2025 Ramona [facility], [facility] [address] [place] [address] 03/01/2025 Ramona [facility], [facility] [address] [place] [address] 06/04/2025 Ramona [facility], [facility] [address] [place] [address] 06/04/2025 Ramona [facility], [facility] [address] [place] [address] 06/04/2025 Ramona [facility], [facility] [address] [place] [address] 09/09/2025 Jennyfer Qureshi Assessments Encounter Date Diagnosis (ICD Code) Assessment Notes Treatment Notes Treatment Clinical Notes Section Notes 05/05/2025 Bipolar disorder, current episode hypomanic (ICD-10 - F31.0) 04/06/2025 Bipolar disorder, current episode hypomanic (ICD-10 - F31.0) 05/05/2025 Primary insomnia (ICD-10 - F51.01) 06/09/2025 Bipolar disorder, current episode hypomanic (ICD-10 - F31.0) 06/09/2025 Generalized anxiety disorder (ICD-10 - F41.1) 12/03/2024 Bipolar disorder, in partial remission, most recent episode depressed (ICD-10 - F31.75) 12/03/2024 Generalized anxiety disorder (ICD-10 - F41.1) 04/06/2025 Primary insomnia (ICD-10 - F51.01) 07/12/2025 Bipolar disorder, in partial remission, most recent episode hypomanic (ICD-10 - F31.71) 08/25/2025 Generalized anxiety disorder (ICD-10 - F41.1) Patient reports worsening anxiety and stress since starting a new job and facing increased responsibilities. Anxiety is compounded by girlfriend's injury and family tensions. Patient desires medication to help manage anxiety and reduce stress. Mood is generally stable when alone, but irritability increases in stressful situations. - Started Propranolol 10 mg twice daily for anxiety and tremor. - Discussed risks and benefits of Propranolol, including potential for low blood pressure and dizziness. - Advised patient to monitor for lightheadedness and stay hydrated. 08/25/2025 Tremor, unspecified (ICD-10 - R25.1) Patient reports progressively worsening tremor, mainly in right hand, since the beginning of the year. No involvement of legs, tongue, or jaw. Possible medication side effect considered. Previous use of gabapentin was ineffective. - Started Propranolol 10 mg twice daily to address tremor. - Discussed alternative options including gabapentin and Lyrica, but patient declined due to prior experience and addiction concerns. 07/12/2025 Generalized anxiety disorder (ICD-10 - F41.1) 06/09/2025 Irritability (ICD-10 - R45.4) 08/25/2025 Bipolar disorder, in partial remission, most recent episode hypomanic (ICD-10 - F31.71) History of bipolar disorder diagnosed in 1992. Prior manic episode with Vraylar dose increase; reverted to lower dose. Current medication regimen includes Vraylar, Trintellix, Depakote, and Mirtazapine. Mood generally stable, but patient experiences irritability in stressful situations. - Continued Vraylar at 4.5 mg after reducing from 6 mg due to carlin. - Continued Trintellix at 10 mg after reducing from 20 mg due to lack of improvement. - Continued Depakote and Mirtazapine as part of maintenance therapy. 12/03/2024 Primary insomnia (ICD-10 - F51.01) 04/06/2025 Generalized anxiety disorder (ICD-10 - F41.1) 05/05/2025 Generalized anxiety disorder (ICD-10 - F41.1) 06/09/2025 Primary insomnia (ICD-10 - F51.01) 12/03/2024 Encounter for screening for cardiovascular disorders (ICD-10 - Z13.6) 07/12/2025 Primary insomnia (ICD-10 - F51.01) 08/25/2025 History of alcohol abuse (ICD-10 - F10.11) History of methamphetamine and alcohol abuse. Sober from drugs since and alcohol for five years. Patient is cautious about medications with addiction potential. - Avoided prescribing controlled substances such as Lyrica due to addiction risk, per patient's request 08/25/2025 Primary insomnia (ICD-10 - F51.01) 12/03/2024 Encounter for screening for depression (ICD-10 - Z13.31) 06/09/2025 Other [facility] (current) drug therapy (ICD-10 - Z79.899) 12/03/2024 Other Christine Garcia, an adult male patient with a history of mood disorder and anxiety, presents for medication management follow-up reporting stable mood and anxiety. Mood DisorderAssessmen t: Patient reports stable mood with current medication [...] if any concerns arise before next appointment AnxietyAssessment : Patient reports anxiety is well-controlled with current treatment. He acknowledges some worry, which he considers normal and manageable. Patient is using healthy coping mechanisms, including involvement with [place] activities and regular exercise at the gym.Plan:- Continue current medication regimen (as listed above)- Encourage continuation of current coping strategies, including [place] involvement and regular exercise 04/06/2025 Other Christine [...] medication regimen included Trintellix 20 mg for depression/anxiet y, mirtazapine at bedtime, and Vraylar 4.5 mg [...] recently took a more stressful position at [employer], which may be exacerbating symptoms. 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 The recent job change with the [employer], while managed well, may be contributing to [...] patient's symptoms and to monitor medication effects. 07/12/2025 Other Christine Garcia is a male patient with bipolar disorder and generalized anxiety disorder presenting for routine follow-up, reporting feeling better with improved balance after recent medication adjustments, though experiencing new tremor symptoms. Bipolar disorder Assessment: Patient reports feeling better with improved balance compared to 4 weeks ago when he was experiencing hypomanic symptoms and increased anxiety/irritabil ity. Currently stable on current medication regimen. Has been utilizing therapy and AA sponsorship for additional support during stressful period related to girlfriend's compound leg fracture. No suicidal ideation reported. Weight gain from 167 to 173 pounds noted, which patient views positively as he aims for 180 pounds. Plan: - Continue Depakote 250 mg delayed-release capsules, one capsule in the morning and 2 at bedtime - Continue Vraylar 4.5 mg - Follow-up in 6 weeks to reassess stability and medication effectiveness - Obtain previous lab results from [facility] Generalized anxiety disorder Assessment: Previously experiencing increased anxiety and irritability 4 weeks ago, now reports improved balance and stability. Currently managed well on current medication regimen. Plan: - Continue Trintellix 10 mg - Continue mirtazapine 7.5 mg daily at bedtime Insomnia Assessment: Patient reports sleeping well currently. Previously had history of insomnia, now well-controlled with current medication regimen. Plan: - Continue mirtazapine 7.5 mg daily at bedtime Possibly medication-induce d tremor Assessment: Patient reports new onset right hand tremor that is progressively worsening, especially during stressful situations. Tremor is controllable when patient focuses on stopping it but occurs involuntarily. Also experiencing increased tongue movements during sedentary activities like stoney or meetings. Symptoms may be related to Vraylar, which can be activating and cause involuntary movements. Current dose is 4.5 mg after previous increase to 6 mg was reduced due to side effects. Plan: - Monitor tremor and tongue movements without medication adjustment at this time - Reassess symptoms at next visit in 6 weeks to determine if medication changes are needed Medical Decision Making Christine Garcia is a male with a history of bipolar disorder, insomnia, and generalized anxiety disorder presenting for routine psychiatric follow-up approximately 4 weeks after his last visit, during which time his girlfriend sustained a compound leg fracture requiring extensive care coordination. The patient reports feeling a little better compared to his previous hypomanic state with associated anxiety and irritability, indicating improved mood stabilization on his current regimen. His current medication combination of Depakote and Vraylar appears to be providing adequate mood stabilization, with the patient no longer experiencing the hypomanic symptoms that prompted recent medication adjustments. Sleep and appetite have normalized, with the patient reporting good sleep quality and increased appetite leading to appropriate weight gain from 167 to 173 pounds. The patient denies any suicidal ideation. New onset right hand tremor and tongue movements were reported, which can be controlled voluntarily and appear to be stress-related or potentially medication-induce d given the activating properties of Rexulti. Given the patient's overall clinical improvement and stability, no medication adjustments are warranted at this time, with plans to monitor the involuntary movements and reassess if they persist or worsen. 08/25/2025 Other Patient reports blood pressure runs normal while on metoprolol. No current concerns related to hypertension. - Continued metoprolol for blood pressure management. Plan Of Treatment Pending Test Test Name Order Date LIPID PANEL, STANDARD (7600) 06/09/2025 THYROID PANEL WITH TSH (7444) 06/09/2025 COMPREHENSIVE METABOLIC PANEL (45088) CBC (INCLUDES DIFF/PLT) (6399) HEMOGLOBIN A1c (496) 06/09/2025 TESTOSTERONE, TOTAL, MALES (ADULT), IA ( 873) 06/09/2025 VALPROIC ACID (916) 06/09/2025 Next Appt Details Provider Name:Jennyfer capone, 09/24/2025 08:15:00 AM, [address], [facility], [place], [address], Insurance Providers Payer Name Payer Address Payer Phone Subscriber Number Group Number Insured Name Patient Relationship to Insured Coverage Start Date Coverage End Date [employer] Medicare Replacement/ Advantage - Ppo [address] [address] [place] [address] [id number] CHRISTINE GARCIA Self - patient is the insured Medical (General) History Medical History History ICD Code Problems: Atrial fibrillation Bipolar disorder Generalized anxiety disorder History of alcoholism Primary insomnia Unspecified atrial fibrillation I48.91 Bipolar disorder, diagnosed 1992 Hypertension History of substance abuse, sober since (drugs), five years (alcohol) Surgical History Surgery Date(Month/Year) Neurosurgery Heart surgery 10/12/2021 Neurosurgery 12/22/2012 Heart surgery 05/24/2010 back stimulator 10/2023 Spinal stimulator placement, lower back, for herniated discs and sciatica Neurosurgery Heart surgery Neurosurgery Heart surgery back stimulator
--- OUTSIDE RECORDS SUMMARY | 2025-09-17 12:58 | XMS_ITS | Clinical Summary ---
Author Organization [facility] [employer] Address [address] [place] [address] Care Team Providers Care Ship Propeller Finisher Name Role Phone Jerman Hamilton MD Primary Care Provider [phone] Source Comments [facility] [employer],non-owned Affiliates and Associated Physician Practices is amultiple site organization consisting of ambulatory clinics and hospital sitesin [place], [place], [place] and [place]. This disclosure is being madepursuant to the Care Everywhere program and may not contain all information available regarding this patient. Last updated 18.[facility] [employer] Allergies Active Allergy Reactions Criticality Noted Date [...] different from the original. EP--Dr. Hal Wong Back Maker - Dr. Thuan Hart Problem Noted Date Diagnosed Date LBBB (left bundle branch block) 08/03/2015 Paroxysmal atrial fibrillation 08/03/2015 Essential hypertension, benign 08/03/2015 Pure hypercholesterolemia 08/03/2015 Non morbid obesity due to excess calories 2014 Dietary counseling 08/03/2015 Bi-V Defibrillator 06/22/2012 Overview (03/07/2016): 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 file Not on file Last Filed Vital Signs Vital Sign Reading Time Taken Comments Blood Pressure 114/68 08/16/2020 2:05 PM TAG MACHINE OPERATOR Pulse 70 08/16/2020 2:05 PM TAG MACHINE OPERATOR Temperature 36.2 C (97.1 F) 03/07/2016 8:29 AM CDT Respiratory Rate 12 08/16/2020 2:05 PM TAG MACHINE OPERATOR Oxygen Saturation 97% 03/07/2016 12:00 PM CDT Inhaled Oxygen Concentration - - Weight 73 kg (161 lb) 08/16/2020 2:05 PM TAG MACHINE OPERATOR Height 185.4 cm (6' 1) 08/16/2020 2:05 PM TAG MACHINE OPERATOR Body Mass Index 21.24 08/16/2020 2:05 PM TAG MACHINE OPERATOR Plan of Treatment Health Maintenance [...] Cancer Screening 06/15/2023 COVID-19 VACCINE (1 - 2024-2 6 season) 2025 INFLUENZA VACCINE (#1) 2025 07/06/2020 [...] this topic Medical Devices Implanted Type Area Consultant Teacher Device Identifier Shelf Expiration Date Model / Serial / Lot Alloquent Corticocanc S 8.0mm Implanted:Qty: 1 on 03/11/2013 by Roberto Jaime MD at [facility] N/A: Spine Cervical [facility] 04/24/2015 [id number] / / [id number] Alloquent Corticocanc S 8.0mm Implanted:Qty: 1 on 03/11/2013 by Roberto Jaime MD at [facility] N/A: Spine Cervical [facility] 05/29/2015 [id number] / / [id number] 37mm [employer]e [employer]p Implanted:Qty: 1 on 03/11/2013 by Roberto Jaime MD at [facility] Spine Cervical [employer] [id number] / / Description:Implanted from s terile tray. 14mm Fixed Screws Implanted:Qty: 6 on 03/11/2013 by Roberto Jaime MD at [facility] Spine Cervical [employer]ine [id number] / / Description:Implanted from s terile tray. Procedures Procedure Name Priority Date/Time Associated Diagnosis Comments HIV-1 HIV-2 ANTIBODY RAPID AM Draw 07/22/2010 3:35 AM CDT from Last 3 Months or Most Recently Relevant to Health Maintenance Results * HIV-1 HIV-2 ANTIBODY RAPID (07/22/2010 3:35 AM CDT) HIV-1/HIV-2 Rapid Antibody Negative [facility] BLOOD SPECIMEN / Unknown 07/22/2010 3:35 AM CDT 07/22/2010 4:20 AM CDT us Shane Reyna MD LAB - CHEMISTRY ORDERABLES Final Result [facility] [address] [id number] from Last 3 Months or Most Recently Relevant to Health Maintenance [address] [id number] MEDICAID - [facility] MANAGED MEDICARE ADV [facility] MANAGED MEDICARE ADV SELF PAY NO INSURANCE Member Subscriber Plan / Payer (Ef fective for All Dates) Name:Jamie Garcia Member ID:Not on file Relation to Subscriber:Self Name:Jamie Garcia Subscriber ID:Not on file Payer ID:Not on file Group ID:Not on file Type:Self Pay Address: [place], [place] Advance Directives Documents on File Type Date Recorded Patient Traveler Changer Expl anation Adv Directive/Living Will/POA 01/22/2011 1:10 [...] 7:28 PM 02/06/2012 4:05 PM Care Teams Ship Propeller Finisher Relationship Specialty Start Date End Date Jerman Hamilton MD [address] [facility] [address] [place] [address] PCP - General Internal Medicine 03/18/20
[2025-09-17 13:58] LABS: Hemoglobin A1C 5.4 % (<5.7)
[2025-09-17 14:12] LABS: Anion Gap 8 mmol/L (4-12); Blood Urea Nitrogen 14 mg/dL (9-20); Calcium 10.1 mg/dL (8.4-10.2); Carbon Dioxide 31 mmol/L (22-30); Chloride 103 mmol/L (98-107); Cholesterol 139 mg/dL (0-200); Estimated Glomerular Filt Rate > 60; Glucose 87 mg/dL (65-110); HDL Direct 36 mg/dL; Potassium 3.7 mmol/L (3.4-5.0); Sodium 142 mmol/L (137-145); Triglycerides 111 mg/dL (<150)
[2025-09-17 14:25] LABS: Parathyroid Intact 48.8 pg/mL (14.5-75.2)
[2025-09-17 14:48] LABS: Prostate Specific Antigen 0.6 ng/mL (< OR = 4.0)
[2025-09-20 12:08] LABS: Calcium, Ionized 5.4 mg/dL (4.5-5.6)
== END 2025-09-17 12:55 | disposition home or self-care (01) ==
PROVIDERS: PCP Internal Medicine; Visit Provider Internal Medicine
DX: E11.42 Type 2 diabetes mellitus with diabetic polyneuropathy (principal); E83.52 Hypercalcemia; Z79.899 Other long term (current) drug therapy; E78.2 Mixed hyperlipidemia; Z12.5 Encounter for screening for malignant neoplasm of prostate
CPT/HCPCS: 36415; 80048; 80061; 82330; 83036; 83970; 84153; G0103